=== PATIENT | female | born 1930 | race Hispanic/Latino ===

== ENCOUNTER 2017-10-22 20:07 | Emergency (ER) | payer MEDICARE, OTHER ==
[~2017-10-22] VITALS: Ht 154.9 cm; Wt 59.0 kg
[~2017-10-22 20:07] MED LIST: ACETAMINOPHEN325 M1 PO; ACETAMINOPHEN650 MG PO; ALENDRONATE PO; ALENDRONATE SOD70 MG PO; ALIVE PO; ARICEPT5 MG PO; ASPIR 8181 MG PO; ATIVAN0.5 MG PO; ATORVASTATIN CA20 MG PO; AUGMENTIN 500-1 EACH PO; CEFDINIR300 MG PO; CLOPIDOGREL75 MG PO; ECOTRIN81 MG; ESCITALOPRAM OX20 MG PO; FERROUS SULFAT325 MG PO; FOSAMAX70 MG; LASIX20 MG PO; LASIX40 MG PO; LEXAPRO10 MG PO; LORAZEPAM0.5 MG PO; METOPROLOL SUCC25 MG PO; METOPROLOL TART25 MG PO; MINOCYCLINE HCL50 MG PO; MIRALAX17 GM PO; PLAVIX75 MG PO; SENNA PLUS TAB1 EACH PO; SIMVASTATIN40 MG PO; TYLENOL WITH C1 EACH PO; ZOCOR40 MG; ZOFRAN4 MG/5 ML IV
--- OUTSIDE RECORDS SUMMARY | 2017-10-22 20:10 | XMS REPORT ---
[facility] Address Unknown Phone Unavailable Care Team Providers Care Arresting Gear Operator Name Role Phone AURELIO HO Unavailable Unavailable HEMATPOURTOMMY Unavailable Unavailable Problems This patient has no known problems. Allergies, Adverse Reactions, Alerts This patient has no known allergies or adverse reactions. Medications This patient has no known medications. Results Test Description Test Time Test Comments Text Results Atomic Results Result Comments PELVIS AP 1-2 VIEWS [place] [address] Patient Name: MYRTLE CLINE MR #: [id number] : 1930 Age/Sex: 86/F Req #: [id number] [facility] Physician: AURELIO HO MD Ordered by: GAUDENCIO UNDERWOOD MD Report #: [id number] Location: MED/SURG2 Room/Bed: [facility] Procedure: [id number] DX/PELVIS AP 1-2 VIEWS Exam Date : 07/28/17 Exam Time: 2200 REPORT STATUS: Signed PELVIS ONE VIEW Comparison: None Clinical history: Status post fall with hip pain Findings: Overlying bowel gas obscures portions of the bony pelvis. Moderate bilateral hip degenerative changes. Partially imaged spinal osseous fusion hardware. Chronic appearing left superior and inferior pubic rami fractures. No acute fracture or dislocation seen. Vascular calcifications. Impression: No acute bony abnormality Signed by: Dr Lori Garcia MD on 07/29/2017 7:32 PM Dictated By: LORI GARCIA MD 31 Transcribed By: MARVA on 07/29/171931 COPY TO: GAUDENCIO UNDERWOOD MD CT BRAIN WO [facility] [address] [place] [address] Patient Name: MYRTLE CLINE MR #: [id number] : 1930 Age/Sex: 86/F Req #: [id number] Adm Physician: AURELIO HO MD Ordered by: GAUDENCIO UNDERWOOD MD Report #: [id number] Location: MED/SURG2 Room/Bed: [facility] _ Procedure: [id number] CT/CT BRAIN WO Exam Date: 07/28/17 Exam Time: 2305 REPORT STATUS: Signed EXAMINATION: Head CT without contrast. HISTORY:Status post fall. COMPARISON:CT brain from 11/08/2015. TECHNIQUE: Multidetector axial images were obtained from the foramen magnum to the vertex without contrast. The images were reconstructed using brain and bone algorithms. Thin section brain images were reformatted into coronal and sagittal planes. Intravenous contrast: None IMAGE QUALITY: Acceptable. FINDINGS: Skull/scalp: No abnormality. Parenchyma: Unchanged nonspecific bilateral frontoparietal confluent periventricular, patchy subcortical and deep white matter hypodensity are likely related to small vessel ischemic changes. Old lacunar infarct in right anaya radiata. No acute hemorrhage, mass or acute major vascular territorial infarct. Arteries: Atherosclerotic calcification in bilateral carotid siphon. Dural sinuses: No abnormal density suggestive of thrombosis. Ventricles: Moderate compensated dilatation due to volume loss. No hydrocephalus. Extra-axial spaces: No abnormal density. Brain volume: Moderate generalized cerebral volume loss. Craniocervical junction: No mass, Chiari malformation, or basilar invagination. Sella: Partial empty sella. Paranasal/mastoid sinuses : Mild mucosal thickening in bilateral maxillary sinuses. IMPRESSION: No acute abnormality. No change since CT brain from 11/08/2015. Chronic findings: 1. Moderate generalized cerebral volume loss. 2. Moderate to severe supratentorial white matter microvascular ischemic changes. Signed by: Dr. Mary Burgess M.D. on 07/29/2017 7:07 AM Dictated By: MARY BURGESS MD 6 Transcribed By: MARVA on 07/29/17706 COPY TO: GAUDENCIO UNDERWOOD MD CT CERVICAL SPINE WO [place] [address] Patient Name: MYRTLE CLINE MR #: [id number] : 1930 Age/Sex: 86/F Req #: [id number] Adm Physician: AURELIO HO MD Ordered by: GAUDENCIO UNDERWOOD MD Report #: [id number] Location: [facility]/SURG Room/Bed: [facility] Procedure: [id number] CT/CT CERVICAL SPINE WO Exam Date : 07/28/17 Exam Time: 2305 REPORT STATUS: Signed History: Status post fall. Comparison studies: None Technique: Axial images were obtained through the cervical region.. Coronal and sagittal images reconstructed from the axial data.. Intravenous contrast: None Findings: Fractures: None. Soft tissue injuries: None. Atlantoaxial articulation: Intact. Alignment: Loss of normal cervical lordosis is either positional or due to muscle spasm. Mild dextrocurvature of the cervical spine may be positional. Cervicomedullary junction: No abnormalities. The foramen magnum is patent. Soft tissues: Incidental pleural-based airspace opacities in bilateral lung atelectasis may represent scarring. Vertebrae: Expected postoperative changes from prior laminectomy extends from level C4-C5. No fractures, infection or neoplasm. Degenerative changes: Severe degenerative changes in the anterior atlantodental joint, with partially calcified soft tissue density posterior to the dens without significant canal stenosis. C2-C3: 2 mm grade 1 anterolisthesis is likely degenerative. Mild left foraminal stenosis due to advanced left facet arthrosis. C3-C4: Severe degenerative disc disease with decreased intervertebral disc space, endplate sclerosis and anterior vertebral osteophyte. Posterior disc osteophyte complex without significant canal stenosis. Severe right and mild left foraminal stenosis due to facet and uncovertebral arthrosis. C4-C5: Posterior disc osteophyte complex without significant canal stenosis. Severe degenerative disc disease with decreased intervertebral disc space, endplate sclerosis and anterior vertebral osteophyte. Moderate right and severe left foraminal stenosis due to facet and uncovertebral arthrosis. C5-C6: Severe degenerative disc disease with decreased intervertebral disc space, endplate sclerosis and anterior vertebral osteophyte. Posterior disc osteophyte complex results in mild canal stenosis. Moderate right and mild left foraminal stenosis due to facet and uncovertebral arthrosis. C6-C7: Moderate degenerative disc disease with decreased intervertebral disc space and endplate sclerosis. Mild right and moderate left foraminal stenosis due to facet and uncovertebral arthrosis. IMPRESSION: 1. No acute cervical spine fracture. Loss of normal cervical lordosis is either positional or due to muscle spasm. 2. Ligament, spinal cord and or vascular abnormalities cannot be excluded on the basis of this examination. 3. Expected postoperative changes from prior laminectomy at level C4 and C5. 4. Cervical spondylosis as detailed above. Signed by: Dr. Mary Burgess M.D. on 07/29/2017 7:14 AM Dictated By: MARY BURGESS MD 3 Transcribed By: MARVA on 07/29/17713 COPY TO: GAUDENCIO UNDERWOOD MD CHEST 2 VIEWS [place] [address] Patient Name: MYRTLE CLINE MR #: [id number] : 1930 Age/Sex: 86/F Req #: [id number] Adm Physician: AURELIO HO MD Ordered by: GAUDENCIO UNDERWOOD MD Report #: [id number] Location: MED/SURG2 Room/Bed: [facility] _ Procedure: [id number] DX/CHEST 2 VIEWS Exam Date: 07/28/17 Exam Time: 2200 REPORT STATUS: Signed CHEST 2 VIEWS, Technique: CHEST 2 VIEWS Comparison: 06/17/2009 Clinical history: Altered mental status DISCUSSION: See below. Multilevel degenerative changes with mild age-indeterminate mid thoracic anterior wedging and partially imaged lumbar hardware. IMPRESSION: 1. Lines/tubes: Intact median sternotomy wires. Left chest wall 2-lead ICD with right atrial and ventricular leads. 2. Moderately enlarged cardiac silhouette, increased from prior. Aortic calcification. 3. Stable biapical parenchymal nodular opacities, presumably scarring. No edema or consolidation. 4. No effusion or pneumothorax Signed by: Dr Lori Garcia MD on 07/29/2017 7:36 PM Dictated By: LORI GARCIA MD 35 Transcribed By: MARVA on 07/29/171935 COPY TO: GAUDENCIO UNDERWOOD MD [place] [address] Patient Name: MYRTLE CLINE MR #: [id number] : 1930 Age/Sex: 86/F Req #: [id number] Adm Physician: AURELIO HO MD Ordered by: GAUDENCIO UNDERWOOD MD Report #: [id number] Location: MED/SURG2 Room/Bed: 203-1 Procedure: [id number] DX/ELBOW LEFT COMPLETE Exam Date : 07/28/17 Exam Time: 2199 REPORT STATUS: Signed Left elbow - 3 views HISTORY: Pain. COMPARISON: None available. FINDINGS: Bones: No acute displaced fracture. No expansile lytic or sclerotic lesion. Joints: The joint spaces are well- maintained. No dislocation. Soft tissues: The soft tissues appear unremarkable. IMPRESSION: No acute radiographic abnormality. Signed by: Dr. Pancho Garcia M.D. on 07/29/2017 8:32 AM Dictated By: PANCHO GARCIA MD 1 Transcribed By: MARVA on 07/29/17831 COPY TO: GAUDENCIO UNDERWOOD MD CHEST SINGLE (PORTABLE) [place] [address] Patient Name: MYRTLE CLINE MR #: [id number] : 1930 Age/Sex: 86/F Req #: [id number] Adm Physician: TOMMY CASTRO MD Ordered by: TOMMY CASTRO MD Report #: [id number] Location: [facility] Room/ Bed: [facility] 176-1 Procedure: [id number] DX/CHEST SINGLE ( PORTABLE) Exam Date: 01/26/16 Exam Time: 1540 REPORT STATUS: Signed PROCEDURE: A single AP view of the chest. COMPARISON: Portable chest 01/26/2016 1446 hrs. INDICATIONS: POST OPERATIVE WEAKNESS/NAUSEA/VOMITING FINDINGS: Lines/tubes: Left chest cardiac device with leads projecting over the expected region of the right atrium and ventricle. Lungs: Bilateral perihilar opacifications. No parenchymal mass. Pleura: There is no pleural effusion or pneumothorax. Heart and mediastinum: The heart and the mediastinum are unremarkable. Bones: Degenerative changes of the thoracic spine. Median sternotomy wires. IMPRESSION: Bilateral perihilar opacifications may represent pulmonary edema. Dictated by: Pancho Garcia M.D. on 01/26/2016 at 16:05 Electronically approved by: Pancho Garcia M.D. on 01/26/2016 at 16:05 Dictated By: PANCHO GARCIA MD [id number] Transcribed By: STEPHANE on 01/26/16 1605 COPY TO: TOMMY CASTRO MD CHEST SINGLE (PORTABLE) [place] [address] Patient Name: MYRTLE CLINE MR #: [id number] : 1930 Age/Sex: 86/F Req #: [id number] Adm Physician: Ordered by: TOMMY CASTRO MD Report #: [id number] Location: [facility] Room/Bed: Procedure: [id number] DX/CHEST SINGLE (PORTABLE) Exam Date: Exam Time: 1435 REPORT STATUS: Signed PROCEDURE: A single AP view of the chest. COMPARISON: None. INDICATIONS: POST OP FOR PACEMAKER FINDINGS: Lines/tubes: Left chest cardiac device is present with the leads projecting over the expected regions of the right atrium and ventricle. Lungs: Low lung volumes are present bilaterally, likely resulting in vascular crowding. No parenchymal mass or focal consolidation. Pleura: There is no pleural effusion or pneumothorax. Heart and mediastinum: The heart and the mediastinum are unremarkable. Bones: No acute bony abnormality. Median sternotomy wires. IMPRESSION: No acute radiographic abnormality. Dictated by: Pancho Garcia M.D. on 01/26/2016 at 15:29 Electronically approved by: Pancho Garcia M.D. on 01/26/2016 at 15:29 Dictated By: PANCHO GARCIA MD 1522 Transcribed By: STEPHANE on 01/26/16 1529 COPY TO: TOMMY CASTRO MD
--- NOTE | 2017-10-22 22:06 | Diagnostic Imaging Report ---
History:Weakness, fall Comparison studies:None Technique: Axial images were obtained from the skull base to the vertex. Coronal and sagittal images reconstructed from the axial data. Intravenous contrast: None Findings: Scalp/skull: No abnormalities. Extra-axial spaces: No masses. No fluid collections. Brain sulci: Moderately prominent. Ventricles: Moderate compensatory dilatation. No hydrocephalus. Parenchyma: Confluent hypodensities in the supratentorial white matter are small vessel ischemic changes. No masses, hemorrhage, acute or chronic cortical vascular insults. Sellar/suprasellar region: No abnormalities. Craniocervical junction: Patent foramen magnum. No Chiari one malformation. Incidental findings: Atherosclerotic calcifications in the carotid siphons . Impression: No acute abnormalities. Chronic findings: 1. Moderate generalized volume loss. 2. Diffuse supratentorial white matter small vessel ischemic changes. Signed by: Dr. Roque Ledezma M.D. on 10/22/2017 10:03 PM
--- NOTE | 2017-10-22 22:11 | Diagnostic Imaging Report ---
History: Sagittal Comparison studies: None Technique: Axial images were obtained through the cervical region.. Coronal and sagittal images reconstructed from the axial data.. Intravenous contrast: None Findings: Airway: Patent. Fractures: None. Soft tissues: No gross abnormalities. Atlantoaxial articulation: Moderately degenerated. Alignment: Straightening of the usual lordosis is probably positional. 2 mm degenerative anterolisthesis of C7 on T1. No scoliosis. Cervicomedullary junction: No abnormalities. The foramen magnum is patent. Vertebrae: Diffusely demineralized but no compression fractures. Patient status post bilateral laminectomies from C3 to C5. No infection or neoplasm. Degenerative changes: Moderately degenerated discs from C3 to C7. Degenerative spinal canal stenosis is moderate at C3-4 and at C6-C7 due to disc osteophyte complexes. Foraminal stenosis, moderate left at C2-3, severe bilaterally at C3-4, C4-5, C5-6 and moderate left at C6-7 is due to facet and uncovertebral arthrosis. Incidental atherosclerotic calcifications in the common carotid and subclavian arteries and in the carotid bulbs.. IMPRESSION: 1. No acute abnormalities. 2. Cannot adequately evaluate for ligament, spinal cord and or vascular abnormalities. Additional findings Bones are demineralized but no compression fractures. Extensive degenerative changes as described. Old laminectomy from C3 to C5 Signed by: Dr. Roque Ledezma M.D. on 10/22/2017 10:07 PM
[2017-10-22 22:12] LABS: BASOPHILS % 0.5 % (0.0-1.0); EOSINOPHILS # (AUTO) 0.1 (0.0-0.4); EOSINOPHILS % 0.8 % (0.0-6.0); HEMATOCRIT 32.9 % (34.2-44.1); LYMPHOCYTES # (AUTO) 2.3 (1.0-3.2); LYMPHOCYTES % 29.9 % (18.0-39.1); MEAN CORPUSCULAR HEMOGLOBIN 33.1 pg (28-32); MEAN CORPUSCULAR HGB CONC 33.4 g/dL (31-35); MEAN CORPUSCULAR VOLUME 99.1 fL (81-99); MONOCYTES # (AUTO) 0.7 (0.2-0.8); MONOCYTES % 8.6 % (4.4-11.3); NEUTROPHILS # (AUTO) 4.5 (2.1-6.9); NEUTROPHILS % 59.8 % (38.7-80.0); PLATELET COUNT 168 x10e3/uL (140-360); RED BLOOD COUNT 3.32 x10e6/uL (3.6-5.1); RED CELL DISTRIBUTION WIDTH 13.5 % (11.7-14.4)
[2017-10-22 22:15] LABS: BILIRUBIN,URINE NEGATIVE (NEGATIVE); CLARITY,URINE CLEAR (CLEAR); COLOR,URINE YELLOW (YELLOW); KETONES,URINE NEGATIVE (NEGATIVE); LEUKOCYTE ESTERASE ,URINE NEGATIVE (NEGATIVE); NITRITE,URINE NEGATIVE (NEGATIVE); PROTEIN,URINE DIPSTICK NEGATIVE (NEGATIVE); URINE UROBILINOGEN 0.2 mg/dL (0.2 - 1)
[2017-10-22 22:21] LABS: INR 1.2; PROTHROMBIN TIME 14.3 seconds (11.9-14.5)
[2017-10-22 22:22] LABS: PARTIAL THROMBOPLASTIN TIME 27.6 seconds (23.8-35.5)
[2017-10-22 22:29] LABS: BACTERIA,URINE FEW /HPF; EPITHELIAL CELLS,URINE FEW /LPF; RBC,URINE 0-5 /HPF (0-5); WBC,URINE (MAN) 0-5 /HPF (0-5)
[2017-10-22 22:31] LABS: ALBUMIN 3.7 g/dL (3.5-5.0); CALCIUM 9.5 mg/dL (8.4-10.2); CREATININE, SERUM 0.99 mg/dL (0.57-1.11)
[2017-10-22 22:41] LABS: CREATINE KINASE MB 1.4 ng/mL (0.00-5.00)
--- NOTE | 2017-10-22 23:02 | Diagnostic Imaging Report ---
EXAMINATION: CHEST 2 VIEWS INDICATION: Weakness COMPARISON: None FINDINGS: TUBES and LINES: AICD is intact. LUNGS: Lungs are well inflated. There are bibasilar atelectasis. There is mild prominence of the central pulmonary vasculature, consistent with pulmonary venous congestion. PLEURA: No pleural effusion or pneumothorax. HEART AND MEDIASTINUM: Cardiac size is mildly enlarged. There are atherosclerotic calcifications within the aorta. Midline sternotomy wires status post CABG procedure BONES AND SOFT TISSUES: No acute osseous lesion. Soft tissues are unremarkable. UPPER ABDOMEN: No free air under the diaphragm. IMPRESSION: No acute thoracic abnormality. Bibasilar atelectasis and central vascular congestion. Signed by: Dr. Colton Hampton M.D. on 10/22/2017 10:58 PM
[2017-10-22 23:25] VITALS: BP 160/75
== END 2017-10-22 23:29 | disposition home or self-care (01) ==
LOC: ER 20:07
DX: R53.1 Weakness (principal); R30.0 Dysuria; W18.30XA Fall on same level, unspecified, initial encounter; Y92.008 Other place in unspecified non-institutional (private) residence as the place of occurrence of the external cause; F03.90 Unspecified dementia, unspecified severity, without behavioral disturbance, psychotic disturbance, mood disturbance, and anxiety; I10 Essential (primary) hypertension; I25.10 Atherosclerotic heart disease of native coronary artery without angina pectoris; E78.5 Hyperlipidemia, unspecified; Z95.1 Presence of aortocoronary bypass graft
CPT/HCPCS: 36415; 70450; 71046; 72125; 80053; 81001; 82550; 82553; 83605; 83735; 84484; 85025; 85610; 85730; 87086

== ENCOUNTER 2018-11-15 10:57 | Inpatient (IN) | payer MEDICARE, OTHER ==
[~2018-11-15] VITALS: Ht 149.9 cm; Wt 54.9 kg
--- OUTSIDE RECORDS SUMMARY | 2018-11-15 11:01 | XMS REPORT ---
Author Author Merry Perez Organization [employer] Address Unknown Phone Unavailable Care Team Providers Care Snack Bar Cook Name Role Phone Merry Perez Unavailable Encounters Encounter Location Date Unknown Merry Perez MD [place] Oct 28, 2015 Unknown Merry Perez MD [place] December 24, 2015 Unknown Merry Perez MD [place] December 24, 2015 Unknown Merry Perez MD [place] Jul 19, 2016 Unknown Merry Perez MD [place] Jul 30, 2014 Unknown Merry Perez MD [place] Oct 20, 2014 Unknown Merry Perez MD [place] Sep 09, 2015 Problems Problem Type Condition ICD-9 Code Onset Dates Condition Status Problem Essential hypertension I10 Active Problem Pure hypercholesterolemia E78.01 Active Problem Generalized osteoarthrosis, 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 Active Problem 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 Problem Atherosclerosis of [place] arteries of extremity with intermittent claudication I70.219 Active Problem Nonrheumatic mitral (valve) insufficiency I34.0 Active Problem Abnormal electrocardiogram R94.31 Active Problem Carotid artery disease I77.9 Active Problem 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 Status Former Smoker Quit in 1970 February 16, 2016 Alcohol Use Yes. February 16, 2016 Alcohol Screening: Yes. Did you have a drink containing alcohol in the past year?: No, Points: 0, Interpretation: Negative February 16, 2016 Marital Status: single. February 16, 2016 Do you drink alcohol? Yes. 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
--- OUTSIDE RECORDS SUMMARY | 2018-11-15 11:01 | XMS REPORT ---
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 Active Problem 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 Problem Essential hypertension I10 Active Problem Carotid artery disease I77.9 Active Problem Abnormal electrocardiogram R94.31 Active Problem Shortness of breath R06.02 Active Assessment Systolic CHF with reduced left ventricular function, 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
--- OUTSIDE RECORDS SUMMARY | 2018-11-15 11:01 | XMS REPORT | Summary of Care ---
Author Author [facility] Organization [facility] Address Unknown Phone Unavailable Encounter HQ Meri(FIN) [id number] Date(s): 01/08/18 - 01/08/18 [facility] [address] [place] [address]- [facility] [phone] Encounter Diagnosis Headache (Discharge Diagnosis) - 01/08/18 Discharge Disposition: Home or Self Care Attending Physician: Aldair Sousa MD Vital Signs 1 2 3 Most recent to oldest [Reference Range]: 160.02 cm (01/08/18 9:29 AM) Height 98.3 DegF (01/08/18 12:29 PM) 98.6 DegF (01/08/18 9:29 AM) Temperature Oral [96.4-99.1 DegF] 129/57 mmHg (01/08/18 12:29 PM) 155/67 mmHg *HI* (01/08/18 11:51 AM) 163/84 mmHg *HI* (01/08/18 9:29 AM) Blood Pressure [90-140/60-90 mmHg] 16 BRMIN (01/08/18 12:29 PM) 17 BRMIN (01/08/18 11:51 AM) 16 BRMIN (01/08/18 9:29 AM) Respiratory Rate [14-20 BRMIN] 74 bpm (01/08/18 12:29 PM) 72 bpm (01/08/18 11:51 AM) 73 bpm (01/08/18 9:29 AM) Peripheral Pulse Rate [60-100 bpm] 50 kg (01/08/18 9:29 AM) Weight 19.53 m2 (01/08/18 9:29 AM) Body Mass Index Problem List Condition Effective Dates Status Health Status Informant Coronary artery Resolved disease(Confirmed) HTN Resolved (hypertension)(Confi rmed) Allergies, Adverse Reactions, Alerts Substance Reaction Severity Status NKDA Active Medications aspirin 324 mg, Route: PO, ONCE, Dosing Weight 50, kg, Priority: STAT, Start date: 01/08 10:32:00 CDT, Stop date: 01/08/18 10:32:00 CDT Start Date: 01/08/18 Stop Date: 01/08/18 Status: Completed Benadryl 25 mg, Route: IVP, ONCE, Dosing Weight 50, kg, Priority: STAT, Start date: 01/08 10:33:00 CDT, Stop date: 01/08/18 10:33:00 CDT Start Date: 01/08/18 Stop Date: 01/08/18 Status: Completed Kayexalate oral and rectal powder 15 gm, PO, ONCE, only for today., # 1 bag, 0 Refill(s) Start Date: 01/08/18 Status: Ordered morphine Sulfate 2 mg, Route: IVP, ONCE, Dosing Weight 50, kg, Priority: STAT, Start date: 10:32:00 CDT, Stop date: 01/08/18 10:32:00 CDT Start Date: 01/08/18 Stop Date: 01/08/18 Status: Completed ondansetron 4 mg, Route: IVP, ONCE, Dosing Weight 50, kg, Priority: STAT, Start date: 10:32:00 CDT, Stop date: 01/08/18 10:32:00 CDT Start Date: 01/08/18 Stop Date: 01/08/18 Status: Completed Reglan 10 mg, Route: IVP, Drug form: INJ, ONCE, Dosing Weight 50, kg, Priority: STAT, S tart date: 01/08/18 10:33:00 CDT, Stop date: 01/08/18 10:33:00 CDT Start Date: 01/08/18 Stop Date: 01/08/18 Status: Completed Saline Flush 0.9% 10 mL, Route: IVP, Drug Form: INJ, Dosing Weight 50, kg, PRN, PRN Line Flush, St art date: 01/08/18 10:32:00 CDT, Duration: 30 day, Stop date: 02/07/18 10:31:00 CDT Notes: (Same as: BD Posiflush) Start Date: 01/08/18 Stop Date: 01/08/18 Status: Discontinued Results ELECTROLYTES Most recent to 1 oldest [Reference Range]: Sodium Lvl [135-145 143 mEq/L mEq/L] (01/08/18 10:45 AM) Potassium Lvl 5.7 mEq/L [3.5-5.1 mEq/L] *HI* (01/08/18 10:45 AM) Chloride Lvl [95-109 111 mEq/L mEq/L] *HI* (01/08/18 10:45 AM) CO2 [24-32 mEq/L] 27 mEq/L (01/08/18 10:45 AM) AGAP [10.0-20.0 10.7 mEq/L mEq/L] (01/08/18 10:45 AM) CHEM PANEL Most recent to 1 oldest [Reference Range]: Creatinine Lvl 1.10 mg/dL [0.50-1.40 mg/dL] (01/08/18 10:45 AM) eGFR 45 mL/min/1.73m2 1 *NA* (01/08/18 10:45 AM) BUN [7-22 mg/dL] 22 mg/dL (01/08/18 10:45 AM) B/C Ratio [6-25] 20 (01/08/18 10:45 AM) Glucose Lvl [70-99 86 mg/dL mg/dL] (01/08/18 10:45 AM) Total Protein 7.2 g/dL [6.4-8.4 g/dL] (01/08/18 10:45 AM) Albumin Lvl [3.5-5.0 3.2 g/dL g/dL] *LOW* (01/08/18 10:45 AM) Globulin [2.7-4.2 4.0 g/dL g/dL] (01/08/18 10:45 AM) A/G Ratio [0.7-1.6] 0.8 (01/08/18 10:45 AM) Calcium Lvl 8.6 mg/dL [8.5-10.5 mg/dL] (01/08/18 10:45 AM) Phosphorus [2.5-4.5 3.6 mg/dL mg/dL] (01/08/18 10:45 AM) Magnesium Lvl 2.3 mg/dL [1.8-2.4 mg/dL] (01/08/18 10:45 AM) ALT [0-65 unit/L] 17 unit/L (01/08/18 10:45 AM) AST [0-37 unit/L] 31 unit/L (01/08/18 10:45 AM) Alk Phos [39-136 59 unit/L unit/L] (01/08/18 10:45 AM) Bili Total [0.2-1.3 0.7 mg/dL mg/dL] (01/08/18 10:45 AM) Lipase Lvl [73-393 94 unit/L unit/L] (01/08/18 10:45 AM) 1Result Comment: The eGFR is calculated using the CKD-EPI formula. In most young, healthy individuals the eGFR will be >90 mL/min/1.73m2. The eGFR declines with age. An eGFR of 60-89 may be normal in some populations, particularly the elderly, for whom the CKD-EPI formula has not been extensively validated. Use of the eGFR is not recommended in the following populations: Individuals with unstable creatinine concentrations, including patients and those with serious co-morbid conditions. Patients with extremes in muscle mass or diet. The data above are obtained from the National Kidney Disease Education Program ( NKDEP) which additionally recommends that when the eGFR is used in patients with extremes of body mass index for purposes of drug dosing, the eGFR should be mul tiplied by the estimated BMI. CARDIAC ENZYMES Most recent to 1 oldest [Reference Range]: Total CK [12-191 138 unit/L unit/L] (01/08/18 10:45 AM) CK MB [0.5-3.6 1.7 ng/mL ng/mL] (01/08/18 10:45 AM) CK MB Index 1.2 [0.0-2.5] (01/08/18 10:45 AM) Troponin-I 0.24 ng/mL [0.00-0.40 ng/mL] (01/08/18 10:45 AM) HEMATOLOGY Most recent to 1 oldest [Reference Range]: WBC [3.7-10.4 K/CMM] 7.1 K/CMM (01/08/18 10:45 AM) RBC [4.20-5.40 3.48 M/CMM M/CMM] *LOW* (01/08/18 10:45 AM) Hgb [12.0-16.0 g/dL] 11.6 g/dL *LOW* (01/08/18 10:45 AM) Hct [36.0-48.0 %] 33.8 % *LOW* (01/08/18 10:45 AM) MCV [80.0-98.0 fL] 97.2 fL (01/08/18 10:45 AM) MCH [27.0-31.0 pg] 33.4 pg *HI* (01/08/18 10:45 AM) MCHC [32.0-36.0 34.3 g/dL g/dL] (01/08/18 10:45 AM) RDW [11.5-14.5 %] 14.1 % (01/08/18 10:45 AM) MPV [7.4-10.4 fL] 9.7 fL (01/08/18 10:45 AM) Platelet [133-450 162 K/CMM K/CMM] (01/08/18 10:45 AM) Segs [45.0-75.0 %] 66.9 % (01/08/18 10:45 AM) Lymphocytes 23.5 % [20.0-40.0 %] (01/08/18 10:45 AM) Monocytes [2.0-12.0 7.1 % %] (01/08/18 10:45 AM) Eosinophils [0.0-4.0 1.6 % %] (01/08/18 10:45 AM) Basophils [0.0-1.0 0.9 % %] (01/08/18 10:45 AM) Segs-Bands # 4.8 K/CMM [1.5-8.1 K/CMM] (01/08/18 10:45 AM) Lymphocytes # 1.7 K/CMM [1.0-5.5 K/CMM] (01/08/18 10:45 AM) Monocytes # [0.0-0.8 0.5 K/CMM K/CMM] (01/08/18 10:45 AM) Eosinophils # 0.1 K/CMM [0.0-0.5 K/CMM] (01/08/18 10:45 AM) Basophils # [0.0-0.2 0.1 K/CMM K/CMM] (01/08/18 10:45 AM) PT [12.0-14.7 14.2 seconds seconds] (01/08/18 10:45 AM) INR [0.85-1.17] 1.10 (01/08/18 10:45 AM) Immunizations No data available for this section Procedures Procedure Date Related Diagnosis Body Site Status 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
--- OUTSIDE RECORDS SUMMARY | 2018-11-15 11:01 | XMS REPORT | Continuity of Care Document ---
Author Author Cecilia love Organization Interface Address Unknown Phone Unavailable Problems Problem Status Onset Date Classification Date Reported Comments Source Essential hypertension 04/12/2018 10/24/2018 Merry Perez,[facility] Elevated blood pressure reading with diagnosis of hypertension 04/06/2018 10/24/2018 [place] Dementia 04/06/2018 10/24/2018 [facility] HTN 04/06/2018 10/24/2018 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 SYNCOPE Active 07/30/2014 [facility] SYNCOPE, R/O SEIZURE Active 07/30/2014 [facility] Coronary atherosclerosis of artery bypass graft Active Problem 10/03/2018 Merry Perez Systolic CHF with reduced left ventricular function, NYHA class 3 Active Problem 10/03/2018 Merry Perez Pure hypercholesterolemia Active Problem 10/03/2018 Merry Perez ICD in place Active Problem 10/03/2018 Merry Perez Atherosclerosis of [place] arteries of extremity with intermittent claudication Active Problem 10/03/2018 Merry Perez Nonrheumatic mitral insufficiency Active Problem 10/03/2018 Merry Perez Generalized osteoarthrosis, involving multiple sites Active Problem 10/03/2018 Merry Perez Nonrheumatic tricuspid valve disorder Active Problem 10/03/2018 Merry Perez Carotid artery disease Active Problem 10/03/2018 Merry Perez Abnormal electrocardiogram Active Problem 10/03/2018 Merry Perez Shortness of breath Active Problem 10/03/2018 Merry Perez Shortness of breath Active Problem 09/10/2015 Merry Perez Carotid Bruit Active Problem 09/10/2015 Merry Silva Chris Abnormal EKG Active Problem 09/10/2015 Merry Ricardo Perez Atherosclerosis of [place] arteries of the extremities with intermittent claudication Active Problem 08/02/2014 Merry Ricardo Perez Carotid art occ w/o infarc Active Problem 09/10/2015 Merry Ricardo Perez Angina Active Problem 09/10/2015 Merry Ricardo Perez CAD, [place] Coronary Artery Active Problem 09/10/2015 Merry Ricardo [place] Hypercholesterolemia Active Problem 09/10/2015 Merry Ricardo [place] Generalized osteoarthrosis, involving multiple sites Active Problem 09/10/2015 Merry Ricardo [place] Pure hypercholesterolemia Active Problem 12/25/2015 Merry Ricardo Perez Atheroscler [place] arteries the extremities w/intermit claudication Active Problem 09/10/2015 Yobhakti Ricardo Perez CAD of bypass graft Active Problem 09/10/2015 Yobhakti Ricardo Perez Mitral regurgitation Active Problem 09/10/2015 Yobhakti Ricardo Perez Hypertension Active Problem 09/10/2015 Merry Ricardo Perez Nonrheumatic tricuspid insufficiency Active Problem 09/10/2015 Merry Ricardo [place] Carotid artery disease Active Problem 09/10/2015 Merry Ricardo Perez AI Active Problem 09/10/2015 Yobhakti Perez Coronary artery disease [facility] [facility] (<span ID="[id number]">Confirmed</span>) Resolved Problem [facility]/05/[address] Hyperlipidemia, unspecified 01/17/[address] [facility] half-way use of antithrombotics/antiplatelets 01/17/[address] [facility] Unspecified dementia without behavioral disturbance 10/24/2018 [facility] Atherosclerotic heart disease of [place] coronary artery without angina pectoris 10/24/2018 [facility] Presence of aortocoronary bypass graft 10/24/2018 [place] Presence of cardiac pacemaker 10/24/2018 [facility] half-way use of aspirin 10/24/2018 [facility] Personal history of nicotine dependence 10/24/2018 [facility] Coronary artery disease Resolved Problem 10/24/2018 [facility] (<span [id number]">Confirmed</span>) Resolved Problem 10/24/2018 CHIQUITAAmanda [place], [place] SYNCOPE AND COLLAPSE Active [facility] HEMATURIA NOS Active [facility] Medications Medication Details Route Status Patient Instructions Ordering Provider Order Date Source Cephalexin 750 MG Oral Capsule [Keflex] 750 mg=1 cap, PO, Q12H, X 10 day, # 20 cap, 0 Refill(s) Active 03/02/[address] [facility] Ondansetron 4 mg, 2 mL, Route: IVP, Drug form: INJ, ONCE, Dosing Weight 54, kg, Priority: STAT, Start date: 03/01/18 22:19:00 CDT, Stop date: 03/01/18 22:19:00 CDTNotes: (Same as: Zofran) MEDICATION WASTE Product Size: 4 mg Product Wasted: ___ mg Inactive 03/02/[address] [facility] Famotidine 20 mg, 2 mL, Route: IVP, Drug form: INJ, ONCE, Dosing Weight 54, kg, Priority: STAT, Start date: 03/01/18 22:19:00 CDT, Stop date: 03/01/18 22:19:00 CDTNotes: (Same as: Pepcid) Can be dilute in 5-10cc NS IVP: Slow IV push over at least 2 minutes. Inactive 03/02/[address] [facility] Morphine 4 mg, 1 mL, Route: IVP, Drug form: SOLN, ONCE, Dosing Weight 54, kg, Priority: STAT, Start date: 03/01/18 22:19:00 CDT, Stop date: 03/01/18 22:19:00 CDTNotes: (Same as:MORPhine Sulfate) Inactive 03/02/[address] [facility] Saline Flush 0.9% 10 mL, Route: IVP, Drug Form: INJ, Dosing Weight 54, kg, PRN, PRN Line Flush, Start date: 03/01/18 22:19:00 CDT, Duration: 30 day, Stop date: 03/31/18 22:18:00 CDTNotes: (Same as: BD Posiflush) No Longer Active 03/02/[address] [facility] Sodium polystyrene sulfonate 250 MG/ML Oral Suspension [Kayexalate] 15 gm, PO, ONCE, only for today., # 1 bag, 0 Refill(s) Active 01/08/[address] [facility] Reglan 10 mg, Route: IVP, Drug form: INJ, ONCE, Dosing Weight 50, kg, Priority: STAT, Start date: 01/08/18 10:33:00 CDT, Stop date: 01/08/18 10:33:00 CDT Inactive 01/08/[address] [facility] Benadryl 25 mg, Route: IVP, ONCE, Dosing Weight 50, kg, Priority: STAT, Start date: 01/08/18 10:33:00 CDT, Stop date: 01/08/18 10:33:00 CDT Inactive 01/08/[address] [facility] Morphine 2 mg, Route: IVP, ONCE, Dosing Weight 50, kg, Priority: STAT, Start date: 01/08/18 10:32:00 CDT, Stop date: 01/08/18 10:32:00 CDT Inactive 01/08/[address] [facility] Aspirin 324 mg, Route: PO, ONCE, Dosing Weight 50, kg, Priority: STAT, Start date: 01/08/18 10:32:00 CDT, Stop date: 01/08/18 10:32:00 CDT Inactive 01/08/[address] [facility] Ondansetron 4 mg, Route: IVP, ONCE, Dosing Weight 50, kg, Priority: STAT, Start date: 01/08/18 10:32:00 CDT, Stop date: 01/08/18 10:32:00 CDT Inactive 01/08/[address] [facility] Saline Flush 0.9% 10 mL, Route: IVP, Drug Form: INJ, Dosing Weight 50, kg, PRN, PRN Line Flush, Start date: 01/08/18 10:32:00 CDT, Duration: 30 day, Stop date: 02/07/18 10:31:00 CDTNotes: (Same as: BD Posiflush) Inactive 01/08/[address] [facility] Ciprofloxacin 500 MG Oral Tablet [Cipro] 500 mg=1 tab, PO, Q12H, # 14 tab, 0 Refill(s) Active 07/31/2014 [facility] Lisinopril 5 mg, 1 tab, Route: PO, Drug form: TAB, Daily, Dosing Weight 51.364, kg, Start date: 07/31/14 9:00:00, Duration: 30 day, Stop date: 08/29/14 9:00:00Notes: (Same as: Prinivil, Zestril) Inactive 07/31/2014 [facility] Aspirin 81 MG Enteric Coated Tablet 81 mg, 1 tab, Route: PO, Drug form: ECTAB, Daily, Dosing Weight 51.364, kg, Start date: 07/31/14 9:00:00, Duration: 30 day, Stop date: 08/29/14 9:00:00Notes: Do not crush or chew. (Same As: Ecotrin) Inactive 07/31/2014 [facility] Rocephin 1 gm, Route: IVPB, [id number], Dosing Weight 51.364, kg, Start date: 07/30/14 22:00:00, Duration: 30 day, Stop date: 08/28/14 22:00:00Notes: (Same As: Rocephin). Use with 100ml NS mini-bag PLUS and infuse over 30 min No Longer Active 07/31/2014 [facility] Simvastatin 40 mg, 1 tab, Route: PO, Drug form: TAB, Bedtime, Dosing Weight 51.364, kg, Start date: 07/30/14 21:00:00, Duration: 30 day, Stop date: 08/28/14 21:00:00Notes: (Same as: Zocor) No Longer Active 07/31/2014 [facility] metoprolol tartrate 25 mg, 1 tab, Route: PO, Drug form: TAB, Q12H, Dosing Weight 51.364, kg, Start date: 07/30/14 21:00:00, Duration: 30 day, Stop date: 08/29/14 9:00:00Notes: (Same as: Lopressor) No Longer Active 07/31/2014 [facility] tramadol hydrochloride 50 MG Oral Tablet 50 mg, 1 tab, Route: PO, Drug form: TAB, Q6H, Dosing Weight 51.364, kg, PRN Pain Score 1-5, Start date: 07/30/14 19:06:00, Stop date: 08/29/14 19:05:00Notes: Not to exceed 400mg/day. (Same As: Ultram) No Longer Active 07/31/2014 [facility] Alendronic acid 70 MG Oral Tablet 70 mg=1 tab, PO, QMon Active 07/30/2014 [facility] simvastatin 40 mg oral tablet 40 mg=1 tab, PO, Bedtime Active 07/30/2014 [facility] Aspirin 81 MG Enteric Coated Tablet 81 mg=1 tab, PO, Daily Active 07/30/2014 [facility] tramadol hydrochloride 50 MG Oral Tablet 50 mg=1 tab, PO, Q6H, as needed for pain Active 07/30/2014 [facility] metoprolol tartrate 25 mg oral tablet 25 mg=1 tab, PO, Q12H No Longer Active 07/30/2014 [facility] lisinopril 5 mg oral tablet 5 mg=1 tab, PO, Daily No Longer Active 07/30/2014 [facility] Rocephin 1 gm, Route: IVPB, Drug form: PDR/INJ, ONCE, Dosing Weight 51.364, kg, Priority: STAT, Start date: 07/30/14 15:03:00, Stop date: 07/30/14 15:03:00 Inactive 07/30/2014 [facility] Saline Flush 0.9% 10 mL, Route: IVP, Drug Form: INJ, Dosing Weight 51.364, kg, PRN, PRN Line Flush, Start date: 07/30/14 13:07:00, Duration: 30 day, Stop date: 08/29/14 13:06:00Notes: Same as: BD Posiflush Sterile No Longer Active 07/30/2014 [facility] Metoprolol Tartrate 1 tablet Orally Active 50 mg Orally daily Chris Perez Lasix 1 tablet Orally Active 40 mg Orally Once a day Chris Perez Clopidogrel Bisulfate 1 tablet Orally Active 75 mg Orally Once a day Chris Perez Simvastatin 1 tablet Orally Active 40 MG Orally once a day Chris Perez Allergies, Adverse Reactions, Alerts Substance Category Reaction Severity Reaction type Status Date Reported Comments Source Immunizations Immunization Date Given Site Status Last Updated Comments Source Results Order Name Results Value Reference Range Date Interpretation Comments Source URINE AND STOOL UA Color Ltyellow 04/06/2018 [facility] URINE AND STOOL UA Bacteria Occasional /HPF None Seen /HPF 04/06/2018 [facility] URINE AND STOOL UA Urobilinogen <=1.0 mg/dL 0.1 - 1.0 04/06/2018 [facility] URINE AND STOOL UA Hyal Cast 1 /LPF 0 - 2 04/06/2018 [facility] URINE AND STOOL UA WBC 3 /HPF 0 - 5 04/06/2018 [facility] URINE AND STOOL UA Sq Epi Occasional /LPF Few /LPF 04/06/2018 [facility] URINE AND STOOL UA Leuk Est Trace *ABN* (04/06/18 5:26 AM) Negative 04/06/2018 [facility] URINE AND STOOL UA Nitrite Negative (04/06/18 5:26 AM) Negative 04/06/2018 [facility] URINE AND STOOL UA RBC 1 /HPF 0 - 2 04/06/2018 [facility] URINE AND STOOL UA Ketones Negative mg/dL Negative mg/dL 04/06/2018 [facility] URINE AND STOOL UA Bili Negative *NA* (04/06/18 5:26 AM) Negative 04/06/2018 [facility] URINE AND STOOL UA Glucose Negative mg/dL Negative mg/dL 04/06/2018 [facility] URINE AND STOOL UA Blood Negative (04/06/18 5:26 AM) Negative 04/06/2018 [facility] URINE AND STOOL UA Turbidity Slight *ABN* (04/06/18 5:26 AM) Clear 04/06/2018 [facility] URINE AND STOOL UA Protein Negative mg/dL Negative mg/dL 04/06/2018 [facility] URINE AND STOOL UA pH 5.0 5.0 - 8.0 04/06/2018 [facility] URINE AND STOOL UA Spec Grav 1.013 <=1.030 04/06/2018 [facility] Culture: Urine 10,000 - 50,000 CFU/mL Skin Funmi 04/06/2018 [facility] CARDIAC ENZYMES Total CK 98 unit/L 12 - 191 04/06/2018 [facility] CARDIAC ENZYMES Troponin-I 0.19 ng/mL 0.00 - 0.40 04/06/2018 [facility] ELECTROLYTES AGAP 11.8 meq/L 10.0 - 20.0 04/06/2018 [facility] ELECTROLYTES B/C Ratio 23 6 - 25 04/06/2018 [facility] ELECTROLYTES Globulin 3.4 g/dL 2.7 - 4.2 04/06/2018 [facility] ELECTROLYTES A/G Ratio 1.0 0.7 - 1.6 04/06/2018 [facility] ELECTROLYTES Bili Total 0.5 mg/dL 0.2 - 1.3 04/06/2018 [facility] ELECTROLYTES Albumin Lvl 3.4 g/dL 3.5 - 5.0 04/06/2018 [facility] ELECTROLYTES ALT 10 unit/L 0 - 65 04/06/2018 [facility] ELECTROLYTES AST 17 unit/L 0 - 37 04/06/2018 [facility] ELECTROLYTES Total Protein 6.8 g/dL 6.4 - 8.4 04/06/2018 [facility] ELECTROLYTES Alk Phos 58 unit/L 39 - 136 04/06/2018 [facility] ELECTROLYTES eGFR 40 mL/min/1.73m2 04/06/2018 Result Comment: The eGFR is calculated using the [...] from the National Kidney Disease Education Program (NKDEP) which additionally recommends that when the eGFR is used in patients with extremes of body mass index for purposes of drug dosing, the eGFR should be multiplied by the estimated BMI. [facility] ELECTROLYTES Glucose Lvl 101 mg/dL 70 - 99 04/06/2018 [facility] ELECTROLYTES BUN 28 mg/dL 7 - 22 04/06/2018 [facility] ELECTROLYTES Creatinine Lvl 1.20 mg/dL 0.50 - 1.40 04/06/2018 [facility] ELECTROLYTES CO2 26 meq/L 24 - 32 04/06/2018 [facility] ELECTROLYTES Calcium Lvl 8.7 mg/dL 8.5 - 10.5 04/06/2018 [facility] ELECTROLYTES Potassium Lvl 3.8 meq/L 3.5 - 5.1 04/06/2018 [facility] ELECTROLYTES Chloride Lvl 108 meq/L 95 - 109 04/06/2018 [facility] ELECTROLYTES Sodium Lvl 142 meq/L 135 - 145 04/06/2018 [facility] HEMATOLOGY Monocytes 9.5 % 2.0 - 12.0 04/06/2018 [facility] HEMATOLOGY Lymphocytes 29.3 % 20.0 - 40.0 04/06/2018 [facility] HEMATOLOGY Basophils 1.0 % 0.0 - 1.0 04/06/2018 [facility] HEMATOLOGY Eosinophils 2.6 % 0.0 - 4.0 04/06/2018 [facility] HEMATOLOGY Neutrophils # 3.2 K/CMM 1.5 - 8.1 04/06/2018 [facility] Monocytes # 0.5 K/CMM 0.0 - 0.8 04/06/2018 [facility] Lymphocytes # 1.6 K/CMM 1.0 - 5.5 04/06/2018 [facility] Basophils # 0.1 K/CMM 0.0 - 0.2 04/06/2018 [facility] Eosinophils # 0.1 K/CMM 0.0 - 0.5 04/06/2018 [facility] Segs 57.6 % 45.0 - 75.0 04/06/2018 [facility] MCV 98.3 fL 80.0 - 98.0 04/06/2018 [facility] Hct 33.0 % 36.0 - 48.0 04/06/2018 [facility] MCHC 33.3 g/dL 32.0 - 36.0 04/06/2018 [facility] MCH 32.7 pg 27.0 - 31.0 04/06/2018 [facility] MPV 9.3 fL 7.4 - 10.4 04/06/2018 [facility] Platelet 142 K/CMM 133 - 450 04/06/2018 [facility] Hgb 11.0 g/dL 12.0 - 16.0 04/06/2018 [facility] RDW 14.5 % 11.5 - 14.5 04/06/2018 [facility] WBC 5.5 K/CMM 3.7 - 10.4 04/06/2018 [facility] RBC 3.35 M/CMM 4.20 - 5.40 04/06/2018 [facility] Brain wo contrast CT Brain wo contrast CT Clinical Indication: - headache Comparison: None TECHNIQUE: CT images were obtained from the foramen magnum to the vertex without the use of intravenous contrast on a multidetector CT. Coronal and sagittal reconstructions were obtained. CT radiation dose DLP: 901.26 mGy-cm FINDINGS: BRAIN PARENCHYMA: There are normal king-white interfaces, sulci and gyri. There are no focal mass lesions on this noncontrast head CT. There is no mass effect, midline shift or edema. There are no intra-axial or extra-axial fluid collections, intraventricular or intraparenchymal hemorrhage. The pineal, sellar, brainstem, cerebellum and skull base regions appear unremarkable. There are mild changes of cerebral and cerebellar atrophy and chronic microvascular ischemia. VENTRICLES: The lateral ventricles, third and fourth ventricles appear unremarkable. The basilar cisterns are normal. ORBITS, MASTOIDS AND PARANASAL SINUSES: The visualized orbits are unremarkable. The paranasal sinuses are unremarkable. The mastoid air cells are clear. SKULL: There are no osseous abnormalities. There is no soft tissue swelling noted. If there is further concern for intracranial pathology or acute stroke, MRI of the brain may be performed for complete assessment. IMPRESSION: Unremarkable noncontrast head CT with no mass, hemorrhage or subacute stroke. Chronic changes as described above. SL: [id number] 04/06/2018 - - Read by: Logan Alonzo MD Dictated Date/time: 04/06/18 06:00 Electronically Signed by: Logan Alonzo MD 04/06/18 06:02 FINAL REPORT [facility] URINE AND STOOL UA RBC 5 /HPF 0 - 2 03/02/[address] [facility] URINE AND STOOL UA Leuk Est Trace *ABN* (03/02/18 12:43 AM) Negative 03/02/[address] [facility] URINE AND STOOL UA Sq Epi Few /LPF Few /LPF 03/02/[address] [facility] URINE AND STOOL UA WBC 2 /HPF 0 - 5 03/02/[address] [facility] URINE AND STOOL UA Nitrite Negative (03/02/18 12:43 AM) Negative 03/02/[address] [facility] URINE AND STOOL UA Bili Negative *NA* (03/02/18 12:43 AM) Negative 03/02/[address] [facility] URINE AND STOOL UA Blood Negative (03/02/18 12:43 AM) Negative 03/02/2018 [facility] URINE AND STOOL UA Ketones Negative mg/dL Negative mg/dL 03/02/2018 [facility] AND STO[facility] UA Protein Negative mg/dL Negative mg/dL 03/02/2018 [facility] URINE AND STOOL UA Glucose Negative mg/dL Negative mg/dL 03/02/[address] [facility] URINE AND STOOL UA Mucus Few /LPF None Seen /LPF 03/02/2018 [facility] URINE AND STOOL UA Urobilinogen <=1.0 mg/dL 0.1 - 1.0 03/02/[address] [facility] URINE AND STOOL UA Spec Grav 1.053 <=1.030 03/02/[address] [facility] URINE AND STOOL UA pH 6.0 5.0 - 8.0 03/02/[address] [facility] URINE AND STOOL UA Turbidity Clear (03/02/18 12:43 AM) Clear 03/02/[address] [facility] URINE AND STOOL UA Color Yellow *NA* (03/02/18 12:43 AM) Yellow 03/02/[address] [facility] Culture: Urine 10,000 - 50,000 CFU/mL Skin Funmi 03/02/[address] [facility] CARDIAC ENZYMES CK MB Index 1.0 0.0 - 2.5 03/02/[address] [facility] CARDIAC ENZYMES CK MB 1.3 ng/mL 0.5 - 3.6 03/02/[address] [facility] CARDIAC ENZYMES Troponin-I 0.19 ng/mL 0.00 - 0.40 03/02/[address] [facility] CARDIAC ENZYMES Total CK 132 unit/L 12 - 191 03/02/[address] [facility] CHEM PANEL Lipase Lvl 105 unit/L 73 - 393 03/02/[address] [facility] CHEM PANEL eGFR 36 mL/min/1.73m2 03/02/2018 Result Comment: The eGFR is calculated using the [...] from the National Kidney Disease Education Program (NKDEP) which additionally recommends that when the eGFR is used in patients with extremes of body mass index for purposes of drug dosing, the eGFR should be multiplied by the estimated BMI. [place] CHEM PANEL A/G Ratio 0.9 0.7 - 1.6 03/02/2018 [facility] Globulin 4.5 g/dL 2.7 - 4.2 03/02/2018 [facility] PAN[facility] AGAP 15.1 meq/L 10.0 - 20.0 03/02/2018 [facility] B/C Ratio 18 6 - 25 03/02/2018 [facility] CHEM PANEL Bili Total 0.7 mg/dL 0.2 - 1.3 03/02/2018 [facility] CHEM PANEL Sodium Lvl 140 meq/L 135 - 145 03/02/2018 [place] CHEM PANEL Potassium Lvl 4.1 meq/L 3.5 - 5.1 03/02/2018 [facility] Creatinine Lvl 1.31 mg/dL 0.50 - 1.40 03/02/[address] [facility] CHEM PANEL BUN 24 mg/dL 7 - 22 03/02/2018 [place] CHEM PANEL Albumin Lvl 4.0 g/dL 3.5 - 5.0 03/02/2018 [facility] Total Protein 8.5 g/dL 6.4 - 8.4 03/02/2018 [facility] PANEL Calcium Lvl 9.6 mg/dL 8.5 - 10.5 03/02/2018 [facility] PAN[facility] CO2 26 meq/L 24 - 32 03/02/2018 [facility]M PANEL Chloride Lvl 103 meq/L 95 - 109 03/02/[address] [facility] CHEM PANEL AST 23 unit/L 0 - 37 03/02/[address] [facility] CHEM PANEL Alk Phos 71 unit/L 39 - 136 03/02/[address] [facility] CHEM PANEL ALT 20 unit/L 0 - 65 03/02/2018 [facility] Glucose Lvl 107 mg/dL 70 - 99 03/02/[address] [facility] HEMATOLOGY Basophils 1.4 % 0.0 - 1.0 03/02/[address] [facility] HEMATOLOGY Eosinophils 0.2 % 0.0 - 4.0 03/02/[address] [facility] HEMATOLOGY Monocytes # 0.5 K/CMM 0.0 - 0.8 03/02/[address] [facility] HEMATOLOGY Lymphocytes # 3.4 K/CMM 1.0 - 5.5 03/02/[address] [facility] HEMATOLOGY Segs-Bands # 6.0 K/CMM 1.5 - 8.1 03/02/[address] [facility] HEMATOLOGY Basophils # 0.1 K/CMM 0.0 - 0.2 03/02/[address] [facility] HEMATOLOGY Monocytes 4.9 % 2.0 - 12.0 03/02/[address] [facility] HEMATOLOGY Lymphocytes 33.9 % 20.0 - 40.0 03/02/[address] [facility] HEMATOLOGY Segs 59.6 % 45.0 - 75.0 03/02/2018 [facility] MPV 9.9 fL 7.4 - 10.4 03/02/2018 [facility] Platelet 142 K/CMM 133 - 450 03/02/2018 [facility] RDW 14.3 % 11.5 - 14.5 03/02/2018 [facility] MCHC 34.8 g/dL 32.0 - 36.0 03/02/2018 [facility] MCV 96.1 fL 80.0 - 98.0 03/02/2018 [facility] MCH 33.5 pg 27.0 - 31.0 03/02/2018 [facility] Hct 37.8 % 36.0 - 48.0 03/02/2018 [facility] Hgb 13.2 g/dL 12.0 - 16.0 03/02/2018 [facility] RBC 3.93 M/CMM 4.20 - 5.40 03/02/2018 [facility] WBC 10.0 K/CMM 3.7 - 10.4 03/02/[address] [facility] ED Abdomen/Pelvis IV contrast only CT ED Abdomen/Pelvis IV contrast only CT CT ABDOMEN AND PELVIS WITH CONTRAST DATED 03/01/2018. CLINICAL INDICATION: Acute abdominal pain. Nausea and vomiting. COMPARISON: None. TECHNIQUE: A CT of the abdomen and pelvis was performed using helical images from the thoracic outlet through the pubic symphysis after the intravenous administration of 75 mL Visipaque 320. The study was ordered without bowel contrast. Sagittal and coronal reconstructions were performed. CT Radiation Dose: XUZ=532 mGy-cm FINDINGS: SOLID ORGANS: No acute CT abnormalities of the liver, spleen, pancreas, adrenal glands or kidneys are detected. There is no CT evidence of acute renal collecting system obstruction or calcified renal collecting system stone. BILIARY: The gallbladder is normally distended. No significant biliary ductal dilatation is detected. BOWEL: Bowel assessment is limited by the absence of bowel contrast. Bilateral small bowel containing inguinal hernias are identified, left larger than right. No intestinal dilatation is identified to suggest obstruction. No intestinal wall thickening is noted to suggest ischemia or inflammation. The appendix is not identified and could be surgically absent. No secondary signs concerning for appendicitis are present. Colonic diverticulosis is identified without CT evidence of acute diverticulitis. PERITONEUM: No free intraperitoneal air or significant free intraperitoneal fluid. RETROPERITONEUM: The abdominal aorta is normal in caliber. No retroperitoneal mass or adenopathy. PELVIS: The patient is status post hysterectomy. No abnormalities of the ovaries/adnexa are identified. The urinary bladder is unremarkable. LOWER CHEST: The lung bases appear clear of acute disease. A small hiatal hernia is noted in the lower mediastinum. ADDITIONAL COMMENTS: Note is made of L4-L5 posterior spinal fixation hardware. IMPRESSION: 1. No acute CT abnormalities of the abdomen or pelvis are detected. 2. Diverticulosis without CT evidence of acute diverticulitis. 3. Bilateral small bowel containing inguinal hernias, left larger than right. It is no evidence of associated intestinal obstruction or ischemia. SL:131 03/01/2018 - - Read by: Arnaldo Gill MD Dictated Date/time: 03/01/18 23:54 Electronically Signed by: Arnaldo Gill MD 03/02/18 00:03 FINAL REPORT [facility] CARDIAC ENZYMES Total CK 138 unit/L 12 - 191 01/08/[address] [facility] CARDIAC ENZYMES Troponin-I 0.24 ng/mL 0.00 - 0.40 01/08/[address] [facility] CARDIAC ENZYMES CK MB 1.7 ng/mL 0.5 - 3.6 01/08/[address] [facility] CARDIAC ENZYMES CK MB Index 1.2 0.0 - 2.5 01/08/2018 [facility] CHEM PANEL eGFR 45 mL/min/1.73m2 01/08/2018 Result Comment: The eGFR is calculated using the [...] from the National Kidney Disease Education Program (NKDEP) which additionally recommends that when the eGFR is used in patients with extremes of body mass index for purposes of drug dosing, the eGFR should be multiplied by the estimated BMI. [facility] CHEM PANEL AST 31 unit/L 0 - 37 [facility] A/G Ratio 0.8 0.7 - 1.6 01/08/2018 [facility] CHEM PANEL Globulin 4.0 g/dL 2.7 - 4.2 01/08/2018 [facility]M PANEL B/C Ratio 20 6 - 25 01/08/2018 [facility]M PANEL Alk Phos 59 unit/L 39 - 136 01/08/2018 [facility] PANEL Bili Total 0.7 mg/dL 0.2 - 1.3 01/08/2018 [facility]EL AGAP 10.7 meq/L 10.0 - 20.0 01/08/2018 [facility]M PANEL Albumin Lvl 3.2 g/dL 3.5 - 5.0 01/08/2018 [facility] PANEL ALT 17 unit/L 0 - 65 01/08/2018 [facility] Total Protein 7.2 g/dL 6.4 - 8.4 01/08/2018 [facility]EL Potassium Lvl 5.7 meq/L 3.5 - 5.1 01/08/2018 [facility] PANEL Chloride Lvl 111 meq/L 95 - 109 01/08/2018 [facility]M PANEL CO2 27 meq/L 24 - 32 01/08/2018 [facility] PANEL Calcium Lvl 8.6 mg/dL 8.5 - 10.5 01/08/2018 [facility]M PANEL Sodium Lvl 143 meq/L 135 - 145 01/08/2018 [facility] PANEL Creatinine Lvl 1.10 mg/dL 0.50 - 1.40 01/08/2018 [facility]EL BUN 22 mg/dL 7 - 22 01/08/2018 [facility] PANEL Glucose Lvl 86 mg/dL 70 - 99 01/08/2018 [facility] PANEL Magnesium Lvl 2.3 mg/dL 1.8 - 2.4 01/08/2018 [facility] CHEM PANEL Lipase Lvl 94 unit/L 73 - 393 01/08/2018 [facility]M PANEL Phosphorus 3.6 mg/dL 2.5 - 4.5 01/08/[address] [facility] HEMATOLOGY INR 1.10 0.85 - 1.17 01/08/[address] [facility] HEMATOLOGY PT 14.2 s 12.0 - 14.7 01/08/[address] [facility] HEMATOLOGY MCV 97.2 fL 80.0 - 98.0 01/08/[address] [facility] HEMATOLOGY Hct 33.8 % 36.0 - 48.0 01/08/2018 [facility] MCH 33.4 pg 27.0 - 31.0 01/08/2018 [facility] MCHC 34.3 g/dL 32.0 - 36.0 01/08/2018 [facility] Hgb 11.6 g/dL 12.0 - 16.0 01/08/2018 [facility] RBC 3.48 M/CMM 4.20 - 5.40 01/08/2018 [facility] RDW 14.1 % 11.5 - 14.5 01/08/2018 [facility] Platelet 162 K/CMM 133 - 450 01/08/2018 [facility] MPV 9.7 fL 7.4 - 10.4 01/08/2018 [facility] WBC 7.1 K/CMM 3.7 - 10.4 01/08/2018 [facility] Basophils # 0.1 K/CMM 0.0 - 0.2 01/08/2018 [facility] Lymphocytes 23.5 % 20.0 - 40.0 01/08/2018 [facility] Eosinophils # 0.1 K/CMM 0.0 - 0.5 01/08/2018 [facility] Basophils 0.9 % 0.0 - 1.0 01/08/2018 [facility] Monocytes 7.1 % 2.0 - 12.0 01/08/2018 [facility] Eosinophils 1.6 % 0.0 - 4.0 01/08/2018 [facility] Monocytes # 0.5 K/CMM 0.0 - 0.8 01/08/2018 [facility] Segs-Bands # 4.8 K/CMM 1.5 - 8.1 01/08/2018 [facility] Lymphocytes # 1.7 K/CMM 1.0 - 5.5 01/08/2018 [facility] Segs 66.9 % 45.0 - 75.0 01/08/[address] [facility] Brain wo contrast CT Brain wo contrast CT Clinical Indication: - headache, on plavix. Comparison: 04/06/2016. TECHNIQUE: CT images were obtained from the foramen magnum to the vertex without the use of intravenous contrast on a multidetector CT. CT imaging was performed with exposure control parameters to reduce radiation dose. Coronal and sagittal reconstructions were obtained. CT radiation dose DLP: 997 mGy-cm FINDINGS: There is no specific evidence of intracranial hemorrhage, acute infarction or intracranial mass lesion. Redemonstrated are confluent and patchy hypodensities in the periventricular and subcortical white matter consistent with chronic small vessel ischemic disease. There is generalized brain parenchymal volume loss, similar compared to prior. There is no specific evidence of hydrocephalus. There is atherosclerotic calcification involving the visualized internal carotid and vertebral arteries. The visualized paranasal sinuses and mastoid air cells are clear. The bones and extracranial soft tissues are not significantly changed, including prominent degenerative changes of the temporomandibular joints. If there is further concern for intracranial pathology or acute stroke, MRI of the brain may be performed for complete assessment. IMPRESSION: No specific evidence of acute intracranial abnormality. FABIENNE: JULIANN 01/08/2018 - - Read by: Kevin Stearns MD Dictated Date/time: 01/08/18 11:58 Electronically Signed by: Kevin Stearns MD 01/08/18 12:03 FINAL REPORT [facility] Chest 1view DX Chest 1view DX Patient Name: NOHEMI CLINE : 1930; Age: 87 years Female MR: [id number] Study: Chest 1view DX Order Time: 01/08/2018 10:32 AM CDT CLINICAL INDICATION: - COUGH, CONGESTION COMPARISON: Chest radiograph on 07/30/2014 FINDINGS: Lines: Stable position of the left chest pacemaker. Lungs: Hyperinflated lungs with scarring at the apices. Small calcified granuloma within the right midlung. No focal consolidation, effusion, or pneumothorax. Mediastinum: The cardiac silhouette is mildly enlarged. Midline trachea. Bones and soft tissues: Postoperative changes of the thorax. IMPRESSION: No acute cardiopulmonary abnormalities. SL: [id number] 01/08/2018 - - Read by: Diogo Butler MD Dictated Date/time: 01/08/18 10:42 Electronically Signed by: Diogo Butler MD 01/08/18 10:43 FINAL REPORT [facility] Brain wo contrast CT Brain wo contrast CT EXAM: CT BRAIN WITHOUT CONTRAST DATE: 04/06/2016 11:47 AM CDT CLINICAL INDICATION: . Dissociative amnesia TECHNIQUE : Noncontrast images of the brain are obtained from the skull base to the vertex. Axial, sagittal, and coronal images are interpreted. DLP: 1247 mGy-cm COMPARISON: Brain CT of 07/30/2014 FINDINGS: There is no evidence of cerebral edema, mass, mass effect, hemorrhage, recent cortical infarct. There is moderate generalized cortical and deep white matter volume loss with passive enlargement of the ventricles and extra-axial spaces. Chronic small vessel ischemic changes are present. The lateral ventricles, cortical sulci, and basal cisterns are patent. There are calcified atherosclerotic changes. .The sinuses and skull base are unremarkable. IMPRESSION: 1. Moderate generalized volume loss with slight temporal lobe dominance. Temporal volume loss is slightly asymmetric to the left. 2. Moderate to advanced chronic microvascular ischemic changes. No evidence of previous cortical ischemia 3. Cerebrovascular atherosclerosis 04/06/2016 - - Read by: Hayes Rader MD Dictated Date/time: 04/06/16 12:33 Electronically Signed by: Hayes Rader MD 04/06/16 12:35 FINAL REPORT [facility] CHEM PANEL eGFR 59 mL/min/1.73m2 07/31/2014 1Result Comment: The eGFR is calculated using [...] from the National Kidney Disease Education Program (NKDEP) which additionally recommends that when the eGFR is used in patients with extremes of body mass index for purposes of drug dosing, the eGFR should be multiplied by the estimated BMI. [facility] CHEM PANEL Sodium Lvl 140 meq/L 135 - 145 07/31/2014 [facility] CHEM PANEL Potassium Lvl 3.9 meq/L 3.5 - 5.1 07/31/2014 [facility] CHEM PANEL Glucose Lvl 98 mg/dL 70 - 99 07/31/2014 3Interpretive Data: Adult reference range values reflect the clinical guidelines of the [place] [employer]. [facility] CHEM PANEL BUN 18 mg/dL 7 - 22 07/31/2014 [facility] CHEM PANEL Creatinine Lvl 0.9 mg/dL 0.5 - 1.4 07/31/2014 [facility] CHEM PANEL Calcium Lvl 7.9 mg/dL 8.5 - 10.5 07/31/2014 [facility] CHEM PANEL CO2 29 meq/L 24 - 32 07/31/2014 [facility] CHEM PANEL AGAP 9.9 meq/L 10.0 - 20.0 07/31/2014 [facility] CHEM PANEL Chloride Lvl 105 meq/L 95 - 109 07/31/2014 [facility] HEMATOLOGY RDW 14.7 % 11.5 - 14.5 07/31/2014 [facility] HEMATOLOGY Platelet 277 K/CMM 133 - 450 07/31/2014 [facility] HEMATOLOGY MPV 8.1 fL 7.4 - 10.4 07/31/2014 [facility] HEMATOLOGY MCHC 33.5 g/dL 32.0 - 36.0 07/31/2014 [facility] HEMATOLOGY MCV 95.1 fL 80.0 - 98.0 07/31/2014 [facility] MCH 31.8 pg 27.0 - 31.0 07/31/2014 [facility] HEMATOLOGY Hct 27.4 % 36.0 - 48.0 07/31/2014 [facility] HEMATOLOGY RBC 2.89 M/CMM 4.20 - 5.40 07/31/2014 [facility] HEMATOLOGY WBC 8.3 K/CMM 3.7 - 10.4 07/31/2014 [facility] HEMATOLOGY Hgb 9.2 g/dL 12.0 - 16.0 07/31/2014 [facility] HEMATOLOGY Basophils # 0.1 K/CMM 0.0 - 0.2 07/31/2014 [facility] HEMATOLOGY Segs-Bands # 5.4 K/CMM 1.5 - 8.1 07/31/2014 [facility] HEMATOLOGY Lymphocytes # 1.9 K/CMM 1.0 - 5.5 07/31/2014 [facility] HEMATOLOGY Eosinophils # 0.2 K/CMM 0.0 - 0.5 07/31/2014 [facility] HEMATOLOGY Monocytes # 0.8 K/CMM 0.0 - 0.8 07/31/2014 [facility] HEMATOLOGY Basophils 0.7 % 0.0 - 1.0 07/31/2014 [facility] HEMATOLOGY Eosinophils 1.9 % 0.0 - 4.0 07/31/2014 [facility] HEMATOLOGY Monocytes 9.2 % 2.0 - 12.0 07/31/2014 [facility] HEMATOLOGY Lymphocytes 23.4 % 20.0 - 40.0 07/31/2014 [facility] HEMATOLOGY Segs 64.8 % 45.0 - 75.0 07/31/2014 [facility] URINE AND STOOL UA Color Yellow *NA* (07/30/14 1:17 PM) Yellow 07/30/2014 [facility] URINE AND STOOL UA Ketones 20 mg/dL Negative mg/dL 07/30/2014 [facility] URINE AND STOOL UA Glucose Negative mg/dL Negative mg/dL 07/30/2014 [facility] URINE AND STOOL UA Protein Negative mg/dL Negative mg/dL 07/30/2014 [facility] URINE AND STOOL UA pH 6.0 5.0 - 8.0 07/30/2014 [facility] URINE AND STOOL UA Turbidity Marked *ABN* (07/30/14 1:17 PM) Clear 07/30/2014 [facility] URINE AND STOOL UA Spec Grav 1.012 <=1.030 07/30/2014 [facility] URINE AND STOOL UA Bacteria Occasional /HPF None Seen /HPF 07/30/2014 [facility] URINE AND STOOL UA RBC 3 /HPF 0 - 2 07/30/2014 [facility] URINE AND STOOL UA Nitrite Negative (07/30/14 1:17 PM) Negative 07/30/2014 [facility] URINE AND STOOL UA Bili Negative *NA* (07/30/14 1:17 PM) Negative 07/30/2014 [facility] URINE AND STOOL UA Urobilinogen 4.0 mg/dL 0.1 - 1.0 07/30/2014 [facility] URINE AND STOOL UA Blood Negative (07/30/14 1:17 PM) Negative 07/30/2014 [facility] URINE AND STOOL UA WBC 18 /HPF 0 - 5 07/30/2014 [facility] URINE AND STOOL UA Leuk Est Moderate *ABN* (07/30/14 1:17 PM) Negative 07/30/2014 [facility] URINE AND STOOL UA Sq Epi Many /LPF Few /LPF 07/30/2014 [facility] CARDIAC ENZYMES Troponin-I 2.77 ng/mL 0.00 - 0.40 07/30/2014 5Result Comment: Critical Result(s) called to patric at 07/30/2014 13:39 bynm. Read back OK. [facility] CARDIAC ENZYMES CK MB 2.2 ng/mL 0.5 - 3.6 07/30/2014 [facility] CHEM PANEL eGFR 46 mL/min/1.73m2 07/30/2014 2Result Comment: The eGFR is calculated using the [...] from the National Kidney Disease Education Program (NKDEP) which additionally recommends that when the eGFR is used in patients with extremes of body mass index for purposes of drug dosing, the eGFR should be multiplied by the estimated BMI. [facility] CHEM PANEL Glucose Lvl 162 mg/dL 70 - 99 07/30/2014 4Interpretive Data: Adult reference range values reflect the clinical guidelines of the [place] [employer]. [facility] CHEM PANEL Chloride Lvl 103 meq/L 95 - 109 07/30/2014 [facility] CHEM PANEL BUN 20 mg/dL 7 - 22 07/30/2014 [facility] CHEM PANEL Creatinine Lvl 1.1 mg/dL 0.5 - 1.4 07/30/2014 [facility] CHEM PANEL Sodium Lvl 138 meq/L 135 - 145 07/30/2014 [facility] CHEM PANEL CO2 29 meq/L 24 - 32 07/30/2014 [facility] CHEM PANEL Calcium Lvl 8.3 mg/dL 8.5 - 10.5 07/30/2014 [facility] CHEM PANEL Potassium Lvl 3.7 meq/L 3.5 - 5.1 07/30/2014 [facility] CHEM PANEL AGAP 9.7 meq/L 10.0 - 20.0 07/30/2014 [facility] HEMATOLOGY Segs-Bands # 6.0 K/CMM 1.5 - 8.1 07/30/2014 [facility] HEMATOLOGY Lymphocytes # 1.3 K/CMM 1.0 - 5.5 07/30/2014 [facility] HEMATOLOGY Basophils 0.5 % 0.0 - 1.0 07/30/2014 [facility] HEMATOLOGY Monocytes # 0.7 K/CMM 0.0 - 0.8 07/30/2014 [facility] HEMATOLOGY Segs 74.3 % 45.0 - 75.0 07/30/2014 [facility] HEMATOLOGY Lymphocytes 15.8 % 20.0 - 40.0 07/30/2014 [facility] Eosinophils 0.5 % 0.0 - 4.0 07/30/2014 [facility] Monocytes 8.9 % 2.0 - 12.0 07/30/2014 [facility] PT 14.1 s 12.0 - 14.7 07/30/2014 [facility] PTT 29.2 s 22.9 - 35.8 07/30/2014 8Interpretive Data: Heparin Therapeutic Range: 57 - [address] [facility] INR 1.08 0.85 - 1.17 07/30/2014 6Interpretive Data: RECOMMENDED RANGES FOR PROTIME INR: 2.0-3.0 for most medical and surgical thromboembolic states. 2.5-3.5 for artificial heart valves and recurrent embolism. INR SHOULD BE USED ONLY FOR PATIENTS ON STABLE ANTICOAGULANT THERAPY. [facility] MCV 95.2 fL 80.0 - 98.0 07/30/2014 [facility] Hct 29.3 % 36.0 - 48.0 07/30/2014 [facility] MCHC 33.4 g/dL 32.0 - 36.0 07/30/2014 [facility] RDW 14.6 % 11.5 - 14.5 07/30/2014 [facility] MCH 31.8 pg 27.0 - 31.0 07/30/2014 [facility] MPV 8.7 fL 7.4 - 10.4 07/30/2014 [facility] Platelet 271 K/CMM 133 - 450 07/30/2014 [facility] WBC 8.0 K/CMM 3.7 - 10.4 07/30/2014 [facility] RBC 3.07 M/CMM 4.20 - 5.40 07/30/2014 [facility] Hgb 9.8 g/dL 12.0 - 16.0 07/30/2014 [facility] D-Dimer 3.92 ug/mL FEU 07/30/2014 7Interpretive Data: In DIC, quantitative D-Dimer is generally greater than 0.66 ug/mL FEU. Values of quantitative D-Dimer less than 0.40 ug/mL FEU have been reported to be associated with a low probability of deep vein thrombosis/pulmonary embolism. This test alone should not be used to rule out DVT/PE. [facility] Vital Signs Vital Sign Value Date Comments Source Temperature Oral (F) 98.2 F 04/06/2018 [facility] Systolic (mm Hg) 118 04/06/2018 [facility] Diastolic (mm Hg) 62 04/06/2018 [facility] Respitory Rate 15 04/06/2018 [facility] Respitory Rate 17 04/06/2018 [facility] Systolic (mm Hg) 147 04/06/2018 [facility] Diastolic (mm Hg) 62 04/06/2018 [facility] Respitory Rate 20 04/06/2018 [facility] Heart Rate 71 04/06/2018 [facility] Temperature Oral (F) 98.5 F 04/06/2018 [facility] Diastolic (mm Hg) 66 04/06/2018 [facility] Systolic (mm Hg) 154 04/06/2018 [facility] Heart Rate 88 04/06/2018 [facility] Temperature Oral (F) 98.5 F 04/06/2018 [facility] Temperature Oral (F) 98.0 F 03/02/[address] [facility] Systolic (mm Hg) 139 03/02/[address] [facility] Diastolic (mm Hg) 71 03/02/[address] [facility] Respitory Rate 19 03/02/[address] [facility] Systolic (mm Hg) 142 03/02/[address] [facility] Diastolic (mm Hg) 68 03/02/[address] [facility] Respitory Rate 17 03/02/[address] [facility] Respitory Rate 14 03/02/[address] [facility] Systolic (mm Hg) 161 03/02/[address] [facility] Diastolic (mm Hg) 63 03/02/[address] [facility] Temperature Oral (F) 98.1 F 03/02/[address] [facility] BMI Calculated 21.77 03/01/2018 [facility] Weight 54 03/01/[address] [facility] Height 157.48 cm 03/01/[address] [facility] Heart Rate 66 03/01/[address] [facility] Temperature Oral (F) 98 F 03/01/[address] [facility] Temperature Oral (F) 98.3 F 01/08/[address] [facility] Respitory Rate 16 01/08/[address] [facility] Heart Rate 74 [facility]2018 [facility] Systolic ([facility] Hg) 129 01/08/2018 [facility] Diastolic (mm Hg) 57 01/08/[address] [facility] Heart Rate 72 01/08/[address] [facility] Respitory Rate 17 01/08/[address] [facility] Systolic (mm Hg) 155 01/08/[address] [facility] Diastolic (mm Hg) 67 01/08/[address] [facility] BMI Calculated 19.53 01/08/[address] [facility] Weight 50 01/08/[address] [facility] Heart Rate 73 01/08/[address] [facility] Systolic (mm Hg) 163 01/08/[address] [facility] Diastolic (mm Hg) 84 01/08/[address] [facility] Respitory Rate 16 01/08/[address] [facility] Temperature Oral (F) 98.6 F 01/08/[address] [facility] Height 160.02 cm 01/08/[address] [facility] Temperature Oral (F) 97.9 F 08/01/2014 [facility] Heart Rate 86 08/01/2014 [facility] Respitory Rate 18 08/01/2014 [facility] Diastolic (mm Hg) 59 08/01/2014 [facility] Systolic (mm Hg) 103 08/01/2014 [facility] Temperature Oral (F) 99.0 F 07/31/2014 [facility] Diastolic (mm Hg) 73 07/31/2014 [facility] Systolic (mm Hg) 123 07/31/2014 [facility] Respitory Rate 18 07/31/2014 [facility] Diastolic (mm Hg) 54 07/31/2014 [facility] Systolic (mm Hg) 127 07/31/2014 [facility] Respitory Rate 15 07/31/2014 [facility] Temperature Oral (F) 98.2 F 07/31/2014 [facility] Weight 51.7 07/31/2014 [facility] BMI Calculated 21.54 07/31/2014 [facility] Height 154.94 cm 07/31/2014 [facility] Weight 51.364 07/30/2014 [facility] BMI Calculated 22.12 07/30/2014 [facility] Height 152.4 cm 07/30/2014 [facility] Heart Rate 75 07/30/2014 [facility] Encounters Location Location Details Encounter Type Encounter Number Reason For Visit Attending Provider ADM Date DC Date Status Source [facility] Inpatient [id number] Harley Bullock 07/30/2014 08/01/2014 [facility] Merry Perez MD PA Unknown [id number] 07/30/2014 07/30/2014 Merry Perez MD PA Unknown [id number] 07/30/2014 07/30/2014 Merry Perez MD PA Unknown [id number] 07/30/2014 07/30/2014 Merry Perez MD PA Unknown [id number] 07/30/2014 07/30/2014 Merry Perez MD PA Unknown [id number] 07/30/2014 07/30/2014 Merry Perez MD PA Unknown [id number] 07/30/2014 07/30/2014 Merry Perez MD PA Unknown [id number] 07/30/2014 07/30/2014 Merry Perez MD PA Unknown [id number] 07/30/2014 07/30/2014 Merry Perez MD PA Unknown [id number] 10/20/2014 10/20/2014 Merry Perez MD PA Unknown [id number] 10/20/2014 10/20/2014 Merry Perez MD PA Unknown [id number] 10/20/2014 10/20/2014 Merry Perez MD PA Unknown [id number] 10/20/2014 10/20/2014 Merry Perez, MD PA Unknown [id number] 10/20/2014 10/20/2014 Merry Perez MD PA Unknown [id number] 10/20/2014 10/20/2014 Merry Perez MD PA Unknown [id number] 10/20/2014 10/20/2014 Merry Perez MD PA Unknown [id number] 09/09/2015 09/09/2015 Merry Perez MD PA Unknown [id number] 09/09/2015 09/09/2015 Merry Perez MD PA Unknown [id number] 09/09/2015 09/09/2015 Merry Perez MD PA Unknown [id number] 09/09/2015 09/09/2015 Merry Perez MD PA Unknown [id number] 09/09/2015 09/09/2015 Merry Perez MD PA Unknown [id number] 09/09/2015 09/09/2015 Merry Perez MD PA Unknown [id number] 09/09/2015 09/09/2015 Merry Perez MD PA Unknown [id number] 10/28/2015 10/28/2015 Merry Perez MD PA Unknown [id number] 10/28/2015 10/28/2015 Merry Perez MD PA Unknown [id number] 10/28/2015 10/28/2015 Merry Perez MD PA Unknown [id number] 10/28/2015 10/28/2015 Merry Perez MD PA Unknown [id number] 10/28/2015 10/28/2015 Merry Perez MD PA Unknown [id number] 10/28/2015 10/28/2015 Merry Perez MD PA Unknown [id number] 12/24/2015 12/24/2015 Merry Perez MD PA Unknown [id number] 12/24/2015 12/24/2015 Merry Perez MD PA Unknown [id number] 12/24/2015 12/24/2015 Merry Perez MD PA Unknown [id number] 12/24/2015 12/24/2015 Merry Perez MD PA Unknown [id number] 12/24/2015 12/24/2015 MD JAK Villarreal Unknown [id number] 12/24/2015 12/24/2015 MD JAK Villarreal Unknown [id number] 12/24/2015 12/24/2015 MD JAK Villarreal Unknown [id number] 12/24/2015 12/24/2015 MD JAK Villarreal Unknown [id number] 12/24/2015 12/24/2015 Merry Perez [facility] [place] [id number] [facility] Rush Unknown [id number] 07/19/2016 07/19/2016 MD JAK Villarreal Unknown [id number] 07/19/2016 07/19/2016 MD JAK Villarreal Unknown [id number] 07/19/2016 07/19/2016 MD JAK Villarreal Unknown [id number] 09/27/2016 09/27/2016 MD JAK Villarreal Unknown [id number] 09/27/2016 09/27/2016 Merry Perez MD PA Unknown [id number] 09/27/2016 09/27/[address] [facility] [id number] Aldair Sousa 01/08/2018 01/08/2018 [facility] [id number] Darryl Pacheco 03/01/2018 03/02/2018 [facility] [id number] Serina Alcanter 04/06/2018 04/06/2018 [facility] Procedures Procedure Code Date Perfomer Comments Source CABG x 3 - Coronary artery bypass grafts x 3 [id number] 07/22/2014 [facility] CABG x 3 - Coronary artery bypass grafts x 3 [id number] 07/22/[address] [facility] CABG x 3 - Coronary artery bypass grafts x 3 [id number] 07/22/2014 [facility]
--- OUTSIDE RECORDS SUMMARY | 2018-11-15 11:01 | XMS REPORT ---
Author Author Mrery Perez Organization [employer] Address Unknown Phone Unavailable Care Team Providers Care Technical Sales Consultant Name Role Phone Merry Perez CP Unavailable Encounters Encounter Location Date Unknown Merry Perez MD [place] Oct 28, 2015 Unknown Merry Perez MD [place] December 24, 2015 Unknown Merry Perez MD [place] December 24, 2015 Unknown Merry Perez MD [place] Jul 30, 2014 Unknown Merry Perez MD [place] Oct 20, 2014 Unknown Merry Perez MD [place] Sep 09, 2015 Problems Problem Type Condition ICD-9 Code Onset Dates Condition Status Problem Essential hypertension I10 Active Problem Pure hypercholesterolemia E78.0 Active Problem Generalized osteoarthrosis, 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 Active Problem Systolic CHF with reduced left ventricular function, 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 Status Former Smoker Quit in 1970 Oct 22, 2015 Alcohol Use Yes. Oct 22, 2015 Alcohol Screening: Yes. Did you have a drink containing alcohol in the past year?: No, Points: 0, Interpretation: Negative Oct 22, 2015 Marital Status: single. Oct 22, 2015 Do you drink alcohol? Yes. 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
--- OUTSIDE RECORDS SUMMARY | 2018-11-15 11:01 | XMS REPORT ---
Author Author Merry Perez Organization [employer] Address Unknown Phone Unavailable Care Team Providers Care Senior Windows Systems Administrator Name Role Phone Merry Perez CP Unavailable [...] valve disorder I36.9 Active Problem Atherosclerosis of [place] arteries of extremity with intermittent claudication I70.219 [...] Yes. 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
--- OUTSIDE RECORDS SUMMARY | 2018-11-15 11:01 | XMS REPORT ---
Author Author Merry Perez Organization [employer] Address Unknown Phone Unavailable Care Team Providers Care Senior Clinical Sas Programmer Name Role Phone Merry Perez CP Unavailable Encounters Encounter Location Date Unknown Merry Perez MD [place] Jul 30, 2014 Problems Problem Type Condition ICD-9 Code Onset Dates Condition Status Problem Shortness of breath 786.05 Active Problem Carotid Bruit 785.9 Active Problem Abnormal EKG 794.31 Active Problem Atherosclerosis of [place] arteries of the extremities with intermittent claudication 440.21 Active Problem Carotid art occ w/o infarc 433.10 Active Problem Angina 413.9 Active Problem CAD, [place] Coronary Artery 414.01 Active Problem Hypercholesterolemia 272.0 Active Problem Generalized osteoarthrosis, involving multiple sites 715.09 Active Social History Social History Element Qualifiers Date Reported Smoking . Status Former Smoker Quit in 1970 Aug 06, 2014 Alcohol Use Yes. Aug 06, 2014 Alcohol Screening: Yes. Did you have a drink containing alcohol in the past year?: No, Points: 0, Interpretation: Negative Aug 06, 2014 Marital Status: single. Aug 06, 2014 Do you drink alcohol? Yes. Aug 06, 2014 Family history Qualifier Description Comment Date Reported Mother Heart disease, [place] Aug 06, 2014 Father Heart disease[place] Aug 06, 2014 Summary Purpose eClinicalWorks Submission
--- OUTSIDE RECORDS SUMMARY | 2018-11-15 11:01 | XMS REPORT ---
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
--- OUTSIDE RECORDS SUMMARY | 2018-11-15 11:01 | XMS REPORT ---
Author Author Merry Perez Organization [employer] Address Unknown Phone Unavailable Care Team Providers Care Roads And Parking Lots Sweeper Operator Name Role Phone Merry Perez CP Unavailable Encounters Encounter Location Date Unknown Merry Perez MD PA Jul 30, 2014 Unknown Merry Perez MD PA Oct 20, 2014 Unknown Merry Perez MD PA Sep 09, 2015 Problems Problem Type Condition ICD-9 Code Onset Dates Condition Status Problem Atheroscler [place] arteries the extremities w/[place] claudication 440.21 Active Problem Essential hypertension I10 Active Problem Systolic CHF with reduced left ventricular function, NYHA class 3 I50.20 Active Problem 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 Active Problem Angina 413.9 Active Problem Shortness of breath R06.02 Active Problem CAD, [place] Coronary Artery 414.01 Active Problem Shortness of breath 786.05 Active Problem Atherosclerosis of [place] arteries of extremity with intermittent claudication I70.219 Active Problem Pure hypercholesterolemia E78.0 Active Problem Generalized osteoarthrosis, 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 Active Problem Abnormal electrocardiogram R94.31 Active Problem Carotid artery disease I77.9 Active Problem Abnormal EKG 794.31 Active Problem Carotid art occ w/o infarc 433.10 Active Problem Generalized osteoarthrosis, involving multiple sites 715.09 Active Problem Hypercholesterolemia 272.0 Active Problem CAD (coronary artery disease) of bypass graft 414.04 Active Problem Mitral regurgitation 424.0 Active Problem Hypertension 401.9 Active Problem 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 Status Former Smoker Quit in 1970 Sep 15, 2015 Alcohol Use Yes. Sep 15, 2015 Alcohol Screening: Yes. Did you have a drink containing alcohol in the past year?: No, Points: 0, Interpretation: Negative Sep 15, 2015 Marital Status: single. Sep 15, 2015 Do you drink alcohol? Yes. 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
--- OUTSIDE RECORDS SUMMARY | 2018-11-15 11:01 | XMS REPORT ---
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
--- OUTSIDE RECORDS SUMMARY | 2018-11-15 11:01 | XMS REPORT ---
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 Active Problem Systolic CHF with reduced left ventricular function, NYHA class 3 I50.20 Active Problem 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 Problem Atherosclerosis of [place] arteries of extremity with intermittent claudication I70.219 Active Problem Nonrheumatic mitral (valve) insufficiency I34.0 Active Problem Abnormal electrocardiogram R94.31 Active Problem Carotid artery disease I77.9 Active Problem 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
--- OUTSIDE RECORDS SUMMARY | 2018-11-15 11:01 | XMS REPORT ---
Author Author Merry Perez Organization e[employer] Address Unknown Phone Unavailable Care Team Providers Care Journeyman Plumber Name Role Phone Merry Perez CP Unavailable [...] in place Z95.810 Active Problem Atherosclerosis of [place] arteries of extremity with intermittent claudication I70.219 Active Medications Medication Code System Code Instructions Start Date End Date Status Dosage Metoprolol Tartrate [facility] [id number] 50 mg Orally daily Active 1 tablet Results No Known Results Summary Purpose eClinicalWorks Submission
--- OUTSIDE RECORDS SUMMARY | 2018-11-15 11:01 | XMS REPORT ---
Author Author Merry Perez Organization eClinical[employer] Address Unknown Phone Unavailable Care Team Providers Care Maintenance Groundskeeper Name Role Phone Merry Perez CP Unavailable [...] Merry Perez MD PA Sep 27, 2016 Unknown Merry Perez MD PA Sep 27, [...] valve disorder I36.9 Active Problem Atherosclerosis of [place] arteries of extremity with intermittent claudication I70.219 [...] Yes. 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
--- OUTSIDE RECORDS SUMMARY | 2018-11-15 11:02 | XMS REPORT | Summary of Care ---
Author Author [facility] Organization [facility] Address Unknown Phone Unavailable Encounter HQ Meri(FIN) [id number] Date(s): 01/08/18 - 01/08/18 [facility] [address] [place] [address]- [facility] [phone] Encounter Diagnosis Headache (Discharge Diagnosis) - 01/08/18 Headache (Final) - Unspecified dementia without behavioral disturbance (Final) - Essential (primary) hypertension (Final) - Hyperlipidemia, unspecified (Final) - Atherosclerotic heart disease of [place] coronary artery without angina pectoris (Final) - marine oil terminal superintendent (current) use of antithrombotics/antiplatelets (Final) - Discharge Disposition: Home or Self Care Attending [...]
--- OUTSIDE RECORDS SUMMARY | 2018-11-15 11:02 | XMS REPORT | Summary of Care ---
Author Author [facility] Organization [facility] Address Unknown Phone Unavailable Encounter HQ Meri(FIN) [id number] Date(s): 04/06/18 - 04/06/18 [facility] [address] [place] [address]- Encounter Diagnosis Essential (primary) hypertension (Final) - 04/11/18 Unspecified dementia without behavioral disturbance (Final) - Atherosclerotic heart disease of [place] coronary artery without angina pectoris (Final) - Presence of aortocoronary bypass graft (Final) - Presence of cardiac pacemaker (Final) - superintendent terminal (current) use of aspirin (Final) - Personal history of nicotine dependence (Final) - Elevated blood pressure reading with diagnosis of hypertension (Discharge Diagnosis) - 04/06/18 Dementia (Discharge Diagnosis) - 04/06/18 HTN (hypertension) (Discharge Diagnosis) - 04/06/18 Discharge Disposition: Home or Self Care Attending Physician: Serina Gutierrez MD Vital Signs 1 2 3 Most recent to oldest [Reference Range]: 98.2 DegF (04/06/18 6:20 AM) 98.5 DegF (04/06/18 4:18 AM) 98.5 DegF (04/06/18 3:53 AM) Temperature Oral [96.4-99.1 DegF] 118/62 mmHg (04/06/18 6:20 AM) 147/62 mmHg *HI* (04/06/18 5:20 AM) Blood Pressure [90-140/60-90 mmHg] 154 mmHg *HI* (04/06/18 4:18 AM) Systolic Blood Pressure [90-140 mmHg] 66 mmHg (04/06/18 4:18 AM) Diastolic Blood Pressure [60-90 mmHg] 15 BRMIN (04/06/18 6:20 AM) 17 BRMIN (04/06/18 5:20 AM) 20 BRMIN (04/06/18 4:18 AM) Respiratory Rate [14-20 BRMIN] 71 bpm (04/06/18 4:18 AM) 88 bpm (04/06/18 3:53 AM) Peripheral Pulse Rate [60-100 bpm] Problem List Condition Effective Dates Status Health Status Informant Coronary artery Resolved disease(Confirmed) HTN Resolved (hypertension)(Confi rmed) Allergies, Adverse Reactions, Alerts Substance Reaction Severity Status NKDA Active Medications No data available for this section Results ELECTROLYTES Most recent to 1 oldest [Reference Range]: Sodium Lvl [135-145 142 mEq/L mEq/L] (04/06/18 4:32 AM) Potassium Lvl 3.8 mEq/L [3.5-5.1 mEq/L] (04/06/18 4:32 AM) Chloride Lvl [95-109 108 mEq/L mEq/L] (04/06/18 4:32 AM) CO2 [24-32 mEq/L] 26 mEq/L (04/06/18 4:32 AM) AGAP [10.0-20.0 11.8 mEq/L mEq/L] (04/06/18 4:32 AM) CHEM PANEL Most recent to 1 oldest [Reference Range]: Creatinine Lvl 1.20 mg/dL [0.50-1.40 mg/dL] (04/06/18 4:32 AM) eGFR 40 mL/min/1.73m2 1 *NA* (04/06/18 4:32 AM) BUN [7-22 mg/dL] 28 mg/dL *HI* (04/06/18 4:32 AM) B/C Ratio [6-25] 23 (04/06/18 4:32 AM) Glucose Lvl [70-99 101 mg/dL mg/dL] *HI* (04/06/18 4:32 AM) Total Protein 6.8 g/dL [6.4-8.4 g/dL] (04/06/18 4:32 AM) Albumin Lvl [3.5-5.0 3.4 g/dL g/dL] *LOW* (04/06/18 4:32 AM) Globulin [2.7-4.2 3.4 g/dL g/dL] (04/06/18 4:32 AM) A/G Ratio [0.7-1.6] 1.0 (04/06/18 4:32 AM) Calcium Lvl 8.7 mg/dL [8.5-10.5 mg/dL] (04/06/18 4:32 AM) ALT [0-65 unit/L] 10 unit/L (04/06/18 4:32 AM) AST [0-37 unit/L] 17 unit/L (04/06/18 4:32 AM) Alk Phos [39-136 58 unit/L unit/L] (04/06/18 4:32 AM) Bili Total [0.2-1.3 0.5 mg/dL mg/dL] (04/06/18 4:32 AM) 1Result Comment: The eGFR is calculated [...] 1 oldest [Reference Range]: Total CK [12-191 98 unit/L unit/L] (04/06/18 4:32 AM) Troponin-I 0.19 ng/mL [0.00-0.40 ng/mL] (04/06/18 4:32 AM) URINE AND STOOL Most recent to 1 oldest [Reference Range]: UA Turbidity [Clear] Slight *ABN* (04/06/18 5:26 AM) UA Color Ltyellow *NA* (04/06/18 5:26 AM) UA pH [5.0-8.0] 5.0 (04/06/18 5:26 AM) UA Spec Grav 1.013 [<=1.030] (04/06/18 5:26 AM) UA Glucose [Negative Negative mg/dL mg/dL] *NA* (04/06/18 5:26 AM) UA Blood [Negative] Negative (04/06/18 5:26 AM) UA Ketones [Negative Negative mg/dL mg/dL] *NA* (04/06/18 5:26 AM) UA Protein [Negative Negative mg/dL mg/dL] (04/06/18 5:26 AM) UA Urobilinogen <=1.0 mg/dL [0.1-1.0 mg/dL] *NA* (04/06/18 5:26 AM) UA Bili [Negative] Negative *NA* (04/06/18 5:26 AM) UA Leuk Est Trace [Negative] *ABN* (04/06/18 5:26 AM) UA Nitrite Negative [Negative] (04/06/18 5:26 AM) UA WBC [0-5 /HPF] 3 /HPF (04/06/18 5:26 AM) UA RBC [0-2 /HPF] 1 /HPF (04/06/18 5:26 AM) UA Bacteria [None Occasional /HPF Seen /HPF] *NA* (04/06/18 5:26 AM) UA Sq Epi [Few /LPF] Occasional /LPF *NA* (04/06/18 5:26 AM) UA Hyal Cast [0-2 1 /LPF /LPF] (04/06/18 5:26 AM) HEMATOLOGY Most recent to 1 oldest [Reference Range]: WBC [3.7-10.4 K/CMM] 5.5 K/CMM (04/06/18 4:32 AM) RBC [4.20-5.40 3.35 M/CMM M/CMM] *LOW* (04/06/18 4:32 AM) Hgb [12.0-16.0 g/dL] 11.0 g/dL *LOW* (04/06/18 4:32 AM) Hct [36.0-48.0 %] 33.0 % *LOW* (04/06/18 4:32 AM) MCV [80.0-98.0 fL] 98.3 fL *HI* (04/06/18 4:32 AM) MCH [27.0-31.0 pg] 32.7 pg *HI* (04/06/18 4:32 AM) MCHC [32.0-36.0 33.3 g/dL g/dL] (04/06/18 4:32 AM) RDW [11.5-14.5 %] 14.5 % (04/06/18 4:32 AM) MPV [7.4-10.4 fL] 9.3 fL (04/06/18 4:32 AM) Platelet [133-450 142 K/CMM K/CMM] (04/06/18 4:32 AM) Segs [45.0-75.0 %] 57.6 % (04/06/18 4:32 AM) Lymphocytes 29.3 % [20.0-40.0 %] (04/06/18 4:32 AM) Monocytes [2.0-12.0 9.5 % %] (04/06/18 4:32 AM) Eosinophils [0.0-4.0 2.6 % %] (04/06/18 4:32 AM) Basophils [0.0-1.0 1.0 % %] (04/06/18 4:32 AM) Neutrophils # 3.2 K/CMM [1.5-8.1 K/CMM] (04/06/18 4:32 AM) Lymphocytes # 1.6 K/CMM [1.0-5.5 K/CMM] (04/06/18 4:32 AM) Monocytes # [0.0-0.8 0.5 K/CMM K/CMM] (04/06/18 4:32 AM) Eosinophils # 0.1 K/CMM [0.0-0.5 K/CMM] (04/06/18 4:32 AM) Basophils # [0.0-0.2 0.1 K/CMM K/CMM] (04/06/18 4:32 AM) Microbiology Reports TEST: Culture: Urine STATUS: Auth (Verified) BODY SITE: SOURCE: Urine, Clean Catch COLLECTED DATE/TIME: 04/06/18 5:26 AM FINAL REPORT 10,000 - 50,000 CFU/mL Skin Funmi Immunizations No data available for this section Procedures Procedure Date Related Diagnosis Body Site Status CABG x 3 - Coronary artery bypass grafts x 3 07/22/14 Completed Social History Social History Type Response Alcohol Never Smoking Status Former smoker; Concerns about tobacco use in household: No; Exposure to Tobacco Smoke None; Cigarette Smoking Last 365 Days No; Reg Smoking Cessation Counseling No entered on: 04/06/18 Assessment and Plan No data available for this section
--- OUTSIDE RECORDS SUMMARY | 2018-11-15 11:02 | XMS REPORT | Summary of Care ---
Author Author [facility] Organization [facility] Address Unknown Phone Unavailable Encounter HQ Meri(FIN) [id number] Date(s): 03/01/18 - 03/02/18 [facility] [address] [place] [address]- [facility] [phone] Encounter Diagnosis UTI (urinary tract infection) (Discharge Diagnosis) - 03/02/18 Discharge Disposition: Home or Self Care Attending Physician: Darryl Pacheco MD Vital Signs 1 2 3 Most recent to oldest [Reference Range]: 157.48 cm (03/01/18 6:04 PM) Height 98.0 DegF (03/02/18 1:35 AM) 98.1 DegF (03/01/18 10:53 PM) 98 DegF (03/01/18 6:04 PM) Temperature Oral [96.4-99.1 DegF] 139/71 mmHg (03/02/18 1:35 AM) 142/68 mmHg *HI* (03/02/18 12:08 AM) 161/63 mmHg *HI* (03/01/18 11:01 PM) Blood Pressure [90-140/60-90 mmHg] 19 BRMIN (03/02/18 1:35 AM) 17 BRMIN (03/02/18 12:08 AM) 14 BRMIN (03/01/18 11:01 PM) Respiratory Rate [14-20 BRMIN] 66 bpm (03/01/18 6:04 PM) Peripheral Pulse Rate [60-100 bpm] 54 kg (03/01/18 6:04 PM) Weight 21.77 m2 (03/01/18 6:04 PM) Body Mass Index Problem List Condition Effective Dates Status Health Status Informant Coronary artery Resolved disease(Confirmed) HTN Resolved (hypertension)(Confi rmed) Allergies, Adverse Reactions, Alerts Substance Reaction Severity Status NKDA Active Medications famotidine 20 mg, 2 mL, Route: IVP, Drug form: INJ, ONCE, Dosing Weight 54, kg, Priority: S TAT, Start date: 03/01/18 22:19:00 CDT, Stop date: 03/01/18 22:19:00 CDT Notes: (Same as: Pepcid)Can be dilute in 5-10cc NS IVP: Slow IV push over at le ast 2 minutes. Start Date: 03/01/18 Stop Date: 03/01/18 Status: Completed Keflex 750 mg oral capsule 750 mg=1 cap, PO, Q12H, X 10 day, # 20 cap, 0 Refill(s) Start Date: 03/02/18 Stop Date: 03/12/18 Status: Ordered morphine Sulfate 4 mg, 1 mL, Route: IVP, Drug form: SOLN, ONCE, Dosing Weight 54, kg, Priority: S TAT, Start date: 03/01/18 22:19:00 CDT, Stop date: 03/01/18 22:19:00 CDT Notes: (Same as:MORPhine Sulfate) Start Date: 03/01/18 Stop Date: 03/01/18 Status: Completed ondansetron 4 mg, 2 mL, Route: IVP, Drug form: INJ, ONCE, Dosing Weight 54, kg, Priority: ST AT, Start date: 03/01/18 22:19:00 CDT, Stop date: 03/01/18 22:19:00 CDT Notes: (Same as: Zofran) MEDICATION WASTE Product Size: 4 mgProduct Was nabil: ___ mg Start Date: 03/01/18 Stop Date: 03/01/18 Status: Completed Saline Flush 0.9% 10 mL, Route: IVP, Drug Form: INJ, Dosing Weight 54, kg, PRN, PRN Line Flush, St art date: 03/01/18 22:19:00 CDT, Duration: 30 day, Stop date: 03/31/18 22:18:00 CDT Notes: (Same as: BD Posiflush) Start Date: 03/01/18 Stop Date: 03/02/18 Status: Discontinued Results ELECTROLYTES Most recent to 1 oldest [Reference Range]: Sodium Lvl [135-145 140 mEq/L mEq/L] (03/01/18 10:47 PM) Potassium Lvl 4.1 mEq/L [3.5-5.1 mEq/L] (03/01/18 10:47 PM) Chloride Lvl [95-109 103 mEq/L mEq/L] (03/01/18 10:47 PM) CO2 [24-32 mEq/L] 26 mEq/L (03/01/18 10:47 PM) AGAP [10.0-20.0 15.1 mEq/L mEq/L] (03/01/18 10:47 PM) CHEM PANEL Most recent to 1 oldest [Reference Range]: Creatinine Lvl 1.31 mg/dL [0.50-1.40 mg/dL] (03/01/18 10:47 PM) eGFR 36 mL/min/1.73m2 1 *NA* (03/01/18 10:47 PM) BUN [7-22 mg/dL] 24 mg/dL *HI* (03/01/18 10:47 PM) B/C Ratio [6-25] 18 (03/01/18 10:47 PM) Glucose Lvl [70-99 107 mg/dL mg/dL] *HI* (03/01/18 10:47 PM) Total Protein 8.5 g/dL [6.4-8.4 g/dL] *HI* (03/01/18 10:47 PM) Albumin Lvl [3.5-5.0 4.0 g/dL g/dL] (03/01/18 10:47 PM) Globulin [2.7-4.2 4.5 g/dL g/dL] *HI* (03/01/18 10:47 PM) A/G Ratio [0.7-1.6] 0.9 (03/01/18 10:47 PM) Calcium Lvl 9.6 mg/dL [8.5-10.5 mg/dL] (03/01/18 10:47 PM) ALT [0-65 unit/L] 20 unit/L (03/01/18 10:47 PM) AST [0-37 unit/L] 23 unit/L (03/01/18 10:47 PM) Alk Phos [39-136 71 unit/L unit/L] (03/01/18 10:47 PM) Bili Total [0.2-1.3 0.7 mg/dL mg/dL] (03/01/18 10:47 PM) Lipase Lvl [73-393 105 unit/L unit/L] (03/01/18 10:47 PM) 1Result Comment: The eGFR is calculated using [...] 1 oldest [Reference Range]: Total CK [12-191 132 unit/L unit/L] (03/01/18 10:47 PM) CK MB [0.5-3.6 1.3 ng/mL ng/mL] (03/01/18 10:47 PM) CK MB Index 1.0 [0.0-2.5] (03/01/18 10:47 PM) Troponin-I 0.19 ng/mL [0.00-0.40 ng/mL] (03/01/18 10:47 PM) URINE AND STOOL Most recent to 1 oldest [Reference Range]: UA Turbidity [Clear] Clear (03/02/18 12:43 AM) UA Color [Yellow] Yellow *NA* (03/02/18 12:43 AM) UA pH [5.0-8.0] 6.0 (03/02/18 12:43 AM) UA Spec Grav 1.053 [<=1.030] *HI* (03/02/18 12:43 AM) UA Glucose [Negative Negative mg/dL mg/dL] *NA* (03/02/18 12:43 AM) UA Blood [Negative] Negative (03/02/18 12:43 AM) UA Ketones [Negative Negative mg/dL mg/dL] *NA* (03/02/18 12:43 AM) UA Protein [Negative Negative mg/dL mg/dL] (03/02/18 12:43 AM) UA Urobilinogen <=1.0 mg/dL [0.1-1.0 mg/dL] *NA* (03/02/18 12:43 AM) UA Bili [Negative] Negative *NA* (03/02/18 12:43 AM) UA Leuk Est Trace [Negative] *ABN* (03/02/18 12:43 AM) UA Nitrite Negative [Negative] (03/02/18 12:43 AM) UA WBC [0-5 /HPF] 2 /HPF (03/02/18 12:43 AM) UA RBC [0-2 /HPF] 5 /HPF *HI* (03/02/18 12:43 AM) UA Sq Epi [Few /LPF] Few /LPF *NA* (03/02/18 12:43 AM) UA Mucus [None Seen Few /LPF /LPF] *NA* (03/02/18 12:43 AM) HEMATOLOGY Most recent to 1 oldest [Reference Range]: WBC [3.7-10.4 K/CMM] 10.0 K/CMM (03/01/18 10:47 PM) RBC [4.20-5.40 3.93 M/CMM M/CMM] *LOW* (03/01/18 10:47 PM) Hgb [12.0-16.0 g/dL] 13.2 g/dL (03/01/18 10:47 PM) Hct [36.0-48.0 %] 37.8 % (03/01/18 10:47 PM) MCV [80.0-98.0 fL] 96.1 fL (03/01/18 10:47 PM) MCH [27.0-31.0 pg] 33.5 pg *HI* (03/01/18 10:47 PM) MCHC [32.0-36.0 34.8 g/dL g/dL] (03/01/18 10:47 PM) RDW [11.5-14.5 %] 14.3 % (03/01/18 10:47 PM) MPV [7.4-10.4 fL] 9.9 fL (03/01/18 10:47 PM) Platelet [133-450 142 K/CMM K/CMM] (03/01/18 10:47 PM) Segs [45.0-75.0 %] 59.6 % (03/01/18 10:47 PM) Lymphocytes 33.9 % [20.0-40.0 %] (03/01/18 10:47 PM) Monocytes [2.0-12.0 4.9 % %] (03/01/18 10:47 PM) Eosinophils [0.0-4.0 0.2 % %] (03/01/18 10:47 PM) Basophils [0.0-1.0 1.4 % %] *HI* (03/01/18 10:47 PM) Segs-Bands # 6.0 K/CMM [1.5-8.1 K/CMM] (03/01/18 10:47 PM) Lymphocytes # 3.4 K/CMM [1.0-5.5 K/CMM] (03/01/18 10:47 PM) Monocytes # [0.0-0.8 0.5 K/CMM K/CMM] (03/01/18 10:47 PM) Basophils # [0.0-0.2 0.1 K/CMM K/CMM] (03/01/18 10:47 PM) Microbiology Reports TEST: Culture: Urine STATUS: Auth (Verified) BODY SITE: SOURCE: Urine, Clean Catch COLLECTED DATE/TIME: 03/02/18 12:43 AM FINAL REPORT 10,000 - 50,000 CFU/mL [...] Reg Smoking Cessation Counseling No entered on: 03/01/18 Assessment and Plan No data available for this section
--- OUTSIDE RECORDS SUMMARY | 2018-11-15 11:02 | XMS REPORT | Summary of Care ---
Author Organization Unknown Address Unknown Phone Unavailable Encounter HQ Meri(DANTE) [id number] Date(s): 07/30/14 - 07/31/14 [facility] [address] [address] [address] - [facility] Discharge Disposition: Home Physician Attending: Harley Bullock MD Physician Admitting: Harley Bullock MD Reason for Visit SYNCOPE, R/O SEIZURE Vital Signs 1 2 3 Most recent to oldest [Reference Range]: 154.94 cm (07/30/14 8:00 PM) 152.4 cm (07/30/14 12:16 PM) Height 97.9 DegF (07/31/14 8:00 PM) 99.0 DegF (07/31/14 3:38 PM) 98.2 DegF (07/31/14 4:00 AM) Temperature Oral [96.4-99.1 DegF] 103 mmHg (07/31/14 8:00 PM) 123 mmHg (07/31/14 3:38 PM) 127 mmHg (07/31/14 2:00 PM) Systolic Blood Pressure [90-140 mmHg] 59 mmHg *LOW* (07/31/14 8:00 PM) 73 mmHg (07/31/14 3:38 PM) 54 mmHg *LOW* (07/31/14 2:00 PM) Diastolic Blood Pressure [60-90 mmHg] 18 BRMIN (07/31/14 8:00 PM) 18 BRMIN (07/31/14 3:38 PM) 15 BRMIN (07/31/14 2:00 PM) Respiratory Rate [14-20 BRMIN] 86 bpm (07/31/14 8:00 PM) 75 bpm (07/30/14 12:16 PM) Peripheral Pulse Rate [60-100 bpm] 51.7 kg (07/30/14 8:00 PM) 51.364 kg (07/30/14 12:16 PM) Weight 21.54 m2 (07/30/14 8:00 PM) 22.12 m2 (07/30/14 12:16 PM) Body Mass Index Problem List Condition Effective Dates Status Health Status Informant Coronary artery Resolved disease(Confirmed) HTN Resolved (hypertension)(Confi rmed) Allergies, Adverse Reactions, Alerts Substance Reaction Severity Status NKDA Active Medications alendronate 70 mg oral tablet 70 mg=1 tab, PO, QMon Start Date: 07/30/14 Status: Ordered aspirin 81 mg tablet, enteric coated 81 mg=1 tab, PO, Daily Start Date: 07/30/14 Status: Ordered aspirin 81 mg tablet, enteric coated 81 mg, 1 tab, Route: PO, Drug form: ECTAB, Daily, Dosing Weight 51.364, kg, Star t date: 07/31/14 9:00:00, Duration: 30 day, Stop date: 08/29/14 9:00:00 Notes: Do not crush or chew.(Same As: Ecotrin) Start Date: 07/31/14 Stop Date: 07/31/14 Status: Discontinued Cipro 500 mg oral tablet 500 mg=1 tab, PO, Q12H, # 14 tab, 0 Refill(s) Start Date: 07/31/14 Stop Date: 08/07/14 Status: Ordered lisinopril 5 mg, 1 tab, Route: PO, Drug form: TAB, Daily, Dosing Weight 51.364, kg, Start d ate: 07/31/14 9:00:00, Duration: 30 day, Stop date: 08/29/14 9:00:00 Notes: (Same as: Prinivlynn Zestril) Start Date: 07/31/14 Stop Date: 07/31/14 Status: Discontinued lisinopril 5 mg oral tablet 5 mg=1 tab, PO, Daily Start Date: 07/30/14 Stop Date: 07/31/14 Status: Discontinued metoprolol tartrate 25 mg, 1 tab, Route: PO, Drug form: TAB, Q12H, Dosing Weight 51.364, kg, Start d ate: 07/30/14 21:00:00, Duration: 30 day, Stop date: 08/29/14 9:00:00 Notes: (Same as: Lopressor) Start Date: 07/30/14 Stop Date: 07/31/14 Status: Discontinued metoprolol tartrate 25 mg oral tablet 25 mg=1 tab, PO, Q12H Start Date: 07/30/14 Stop Date: 07/31/14 Status: Discontinued Rocephin 1 gm, Route: IVPB, Drug form: PDR/INJ, ONCE, Dosing Weight 51.364, kg, Priority: STAT, Start date: 07/30/14 15:03:00, Stop date: 07/30/14 15:03:00 Start Date: 07/30/14 Stop Date: 07/30/14 Status: Completed Rocephin + Sodium Chloride 0.9% IV 100 mL 1 gm, Route: IVPB, [id number], Dosing Weight 51.364, kg, Start date: 07/30/14 22:00 :00, Duration: 30 day, Stop date: 08/28/14 22:00:00 Notes: (Same As: Rocephin). Use with 100ml NS mini-bag PLUS and infuse over 30 min Start Date: 07/30/14 Stop Date: 07/31/14 Status: Discontinued Saline Flush 0.9% 10 mL, Route: IVP, Drug Form: INJ, Dosing Weight 51.364, kg, PRN, PRN Line Flush , Start date: 07/30/14 13:07:00, Duration: 30 day, Stop date: 08/29/14 13:06:00 Notes: Same as: BD Posiflush Sterile Start Date: 07/30/14 Stop Date: 07/31/14 Status: Discontinued simvastatin 40 mg, 1 tab, Route: PO, Drug form: TAB, Bedtime, Dosing Weight 51.364, kg, Star t date: 07/30/14 21:00:00, Duration: 30 day, Stop date: 08/28/14 21:00:00 Notes: (Same as: Zocor) Start Date: 07/30/14 Stop Date: 07/31/14 Status: Discontinued simvastatin 40 mg oral tablet 40 mg=1 tab, PO, Bedtime Start Date: 07/30/14 Status: Ordered tramadol 50 mg oral tablet 50 mg=1 tab, PO, Q6H, as needed for pain Start Date: 07/30/14 Status: Ordered tramadol 50 mg oral tablet 50 mg, 1 tab, Route: PO, Drug form: TAB, Q6H, Dosing Weight 51.364, kg, PRN Pain Score 1-5, Start date: 07/30/14 19:06:00, Stop date: 08/29/14 19:05:00 Notes: Not to exceed 400mg/day. (Same As: Ultram) Start Date: 07/30/14 Stop Date: 07/31/14 Status: Discontinued Results ELECTROLYTES Most recent to 1 2 oldest [Reference Range]: Sodium Lvl [135-145 140 mEq/L 138 mEq/L mEq/L] (07/31/14 6:50 AM) (07/30/14 12:45 PM) Potassium Lvl 3.9 mEq/L 3.7 mEq/L [3.5-5.1 mEq/L] (07/31/14 6:50 AM) (07/30/14 12:45 PM) Chloride Lvl [95-109 105 mEq/L 103 mEq/L mEq/L] (07/31/14 6:50 AM) (07/30/14 12:45 PM) CO2 [24-32 mEq/L] 29 mEq/L 29 mEq/L (07/31/14 6:50 AM) (07/30/14 12:45 PM) AGAP [10.0-20.0 9.9 mEq/L 9.7 mEq/L mEq/L] *LOW* *LOW* (07/31/14 6:50 AM) (07/30/14 12:45 PM) CHEM PANEL Most recent to 1 2 oldest [Reference Range]: Creatinine Lvl 0.9 mg/dL 1.1 mg/dL [0.5-1.4 mg/dL] (07/31/14 6:50 AM) (07/30/14 12:45 PM) eGFR 59 mL/min/1.73m2 1 46 mL/min/1.73m2 2 *NA* *NA* (07/31/14 6:50 AM) (07/30/14 12:45 PM) BUN [7-22 mg/dL] 18 mg/dL 20 mg/dL (07/31/14 6:50 AM) (07/30/14 12:45 PM) Glucose Lvl [70-99 98 mg/dL 3 162 mg/dL 4 mg/dL] (07/31/14 6:50 AM) *HI* (07/30/14 12:45 PM) Calcium Lvl 7.9 mg/dL 8.3 mg/dL [8.5-10.5 mg/dL] *LOW* *LOW* (07/31/14 6:50 AM) (07/30/14 12:45 PM) 1Result Comment: The eGFR is calculated [...] be mul tiplied by the estimated BMI. 2Result Comment: The eGFR is calculated using [...] be mul tiplied by the estimated BMI. 3Interpretive Data: Adult reference range values reflect the clinical guidelines of the [employer]. 4Interpretive Data: Adult reference range values reflect the clinical guidelines of the [employer] [employer]. CARDIAC ENZYMES Most recent to 1 2 oldest [Reference Range]: CK MB [0.5-3.6 2.2 ng/mL ng/mL] (07/30/14 12:45 PM) Troponin-I 2.77 ng/mL 5 [0.00-0.40 ng/mL] *CRIT* (07/30/14 12:45 PM) 5Result Comment: Critical Result(s) called to patric at 07/30/2014 13:39 bynm. Read back OK. URINE AND STOOL Most recent to 1 2 oldest [Reference Range]: UA Turbidity [Clear] Marked *ABN* (07/30/14 1:17 PM) UA Color [Yellow] Yellow *NA* (07/30/14 1:17 PM) UA pH [5.0-8.0] 6.0 (07/30/14 1:17 PM) UA Spec Grav 1.012 [<=1.030] (07/30/14 1:17 PM) UA Glucose [Negative Negative mg/dL mg/dL] *NA* (07/30/14 1:17 PM) UA Blood [Negative] Negative (07/30/14 1:17 PM) UA Ketones [Negative 20 mg/dL mg/dL] *ABN* (07/30/14 1:17 PM) UA Protein [Negative Negative mg/dL mg/dL] (07/30/14 1:17 PM) UA Urobilinogen 4.0 mg/dL [0.1-1.0 mg/dL] *HI* (07/30/14 1:17 PM) UA Bili [Negative] Negative *NA* (07/30/14 1:17 PM) UA Leuk Est Moderate [Negative] *ABN* (07/30/14 1:17 PM) UA Nitrite Negative [Negative] (07/30/14 1:17 PM) UA WBC [0-5 /HPF] 18 /HPF *HI* (07/30/14 1:17 PM) UA RBC [0-2 /HPF] 3 /HPF *HI* (07/30/14 1:17 PM) UA Bacteria [None Occasional /HPF Seen /HPF] *NA* (07/30/14 1:17 PM) UA Sq Epi [Few /LPF] Many /LPF *ABN* (07/30/14 1:17 PM) HEMATOLOGY Most recent to 1 2 oldest [Reference Range]: WBC [3.7-10.4 K/CMM] 8.3 K/CMM 8.0 K/CMM (07/31/14 6:50 AM) (07/30/14 12:45 PM) RBC [4.20-5.40 2.89 M/CMM 3.07 M/CMM M/CMM] *LOW* *LOW* (07/31/14 6:50 AM) (07/30/14 12:45 PM) Hgb [12.0-16.0 g/dL] 9.2 g/dL 9.8 g/dL *LOW* *LOW* (07/31/14 6:50 AM) (07/30/14 12:45 PM) Hct [36.0-48.0 %] 27.4 % 29.3 % *LOW* *LOW* (07/31/14 6:50 AM) (07/30/14 12:45 PM) MCV [80.0-98.0 fL] 95.1 fL 95.2 fL (07/31/14 6:50 AM) (07/30/14 12:45 PM) MCH [27.0-31.0 pg] 31.8 pg 31.8 pg *HI* *HI* (07/31/14 6:50 AM) (07/30/14 12:45 PM) MCHC [32.0-36.0 33.5 g/dL 33.4 g/dL g/dL] (07/31/14 6:50 AM) (07/30/14 12:45 PM) RDW [11.5-14.5 %] 14.7 % 14.6 % *HI* *HI* (07/31/14 6:50 AM) (07/30/14 12:45 PM) Platelet [133-450 277 K/CMM 271 K/CMM K/CMM] (07/31/14 6:50 AM) (07/30/14 12:45 PM) MPV [7.4-10.4 fL] 8.1 fL 8.7 fL (07/31/14 6:50 AM) (07/30/14 12:45 PM) Segs [45.0-75.0 %] 64.8 % 74.3 % (07/31/14 6:50 AM) (07/30/14 12:45 PM) Lymphocytes 23.4 % 15.8 % [20.0-40.0 %] (07/31/14 6:50 AM) *LOW* (07/30/14 12:45 PM) Monocytes [2.0-12.0 9.2 % 8.9 % %] (07/31/14 6:50 AM) (07/30/14 12:45 PM) Eosinophils [0.0-4.0 1.9 % 0.5 % %] (07/31/14 6:50 AM) (07/30/14 12:45 PM) Basophils [0.0-1.0 0.7 % 0.5 % %] (07/31/14 6:50 AM) (07/30/14 12:45 PM) Segs-Bands # 5.4 K/CMM 6.0 K/CMM [1.5-8.1 K/CMM] (07/31/14 6:50 AM) (07/30/14 12:45 PM) Lymphocytes # 1.9 K/CMM 1.3 K/CMM [1.0-5.5 K/CMM] (07/31/14 6:50 AM) (07/30/14 12:45 PM) Monocytes # [0.0-0.8 0.8 K/CMM 0.7 K/CMM K/CMM] (07/31/14 6:50 AM) (07/30/14 12:45 PM) Eosinophils # 0.2 K/CMM [0.0-0.5 K/CMM] (07/31/14 6:50 AM) Basophils # [0.0-0.2 0.1 K/CMM K/CMM] (07/31/14 6:50 AM) PT [12.0-14.7 14.1 seconds seconds] (07/30/14 12:45 PM) INR [0.85-1.17] 1.08 6 (07/30/14 12:45 PM) D-Dimer 3.92 ug/mL FEU 7 *NA* (07/30/14 12:45 PM) PTT [22.9-35.8 29.2 seconds 8 seconds] (07/30/14 12:45 PM) 6Interpretive Data: RECOMMENDED RANGES FOR PROTIME INR: 2.0-3.0 for most medical and surgical thromboembolic states. 2.5-3.5 for artificial heart valves and recurrent embolism. INR SHOULD BE USED ONLY FOR PATIENTS ON STABLE ANTICOAGULANT THERAPY. 7Interpretive Data: In DIC, quantitative D-Dimer is generally greater than 0.66 ug/mL FEU. Values of quantitative D-Dimer less than 0.40 ug/mL FEU have been reported to be associated with a low probability of deep vein thrombosis/pulmonary embolism. This test alone should not be used to rule out DVT/PE. 8Interpretive Data: Heparin Therapeutic Range: 57 - 92 Seconds Medications Administered During Your Visit No data available for this section Immunizations No data available for this section Procedures Procedure Type Body Site Date of Procedure Related Diagnosis CABG x 3 - Coronary 07/22/14 12:00 AM artery bypass grafts x 3 Social History Social History Type Response Alcohol Use: Never Smoking Status Never smoker, Exposure to Tobacco Smoke None, Cigarette Smoking Last 365 Days No, Reg Smoking Cessation Counseling No Assessment and Plan Extracted from: Title: Clinical Document Author: Divya Quigley Date: 07/31/14 [facility] Internal [facility] Progress Note [facility] SUBJECTIVE No acute events. Pt denies VALE, dizziness, dysphagia, neck stiffness, CP, SOB, hemoptysis, N/V/D/C, hematemesis, hematochezia, hematuria, dysuria, skin rash. Pt feeling better, denies Sx return OBJECTIVE Vital Signs (last 24 hrs) Last Charted Minimum Maximum Temp99.0 (JUL 31:)97.7 (JUL 31 00:00)99.0 (JUL 31:) Heart Rate82 (JUL 31:)70 (JUL 31 09:00)H 132 (JUL 30 18:45) Resp Rate 18 (JUL 31:)L 13 (JUL 31 06:00)H 26 (JUL 30 20:00) IOU959 (JUL 31:)92 (JUL 31 10:00)H 159 (JUL 30 21:00) DBP73 (JUL 31:)L 44 (JUL 30 17:52)H 95 (JUL 31 08:00) Ygoulp91.7 (JUL 30:) Ipadah266.94 (JUL 30 20:00) BMI21.54 (JUL 30 20:00) Labs (Last four charted values) WBC 8.3(JUL 31)8.0(JUL 30) Hgb L 9.2(JUL 31)L 9.8(JUL 30) Hct L 27.4(JUL 31)L 29.3(JUL 30) Plt 277(JUL 31)271(JUL 30) Na 140(JUL 31)138(JUL 30) K 3.9(JUL 31)3.7(JUL 30) CO2 29(JUL 31)29(JUL 30) Cl 105(JUL 31)103(JUL 30) Cr 0.9(JUL 31)1.1(JUL 30) BUN 18(JUL 31)20(JUL 30) Glucose Random 98(JUL 31)H 162(JUL 30) Ca L 7.9(JUL 31)L 8.3(JUL 30) PT 14.1(JUL 30) INR 1.08(JUL 30) PTT 29.2(JUL 30) Troponin C 2.77(JUL 30) CK MB 2.2(JUL 30) Scheduled Meds (4):alendronate (Fosamax), aspirin (aspirin 81 mg tablet, enteric coated), cefTRIAXone + Sodium Chloride 0.9% IV 100 mL (Rocephin + Sodium Chloride 0.9% IV 100 mL), simvastatin Unscheduled Meds: None PRN Meds (2):sodium chloride (Saline Flush 0.9%), tramadol (tramadol 50 mg oral tablet) One Time Meds (1):(Completed) cefTRIAXone (Rocephin) Continuous Infusions: None Physical Exam Gen: Pt resting comfortably, A&Ox3, NAD HEENT: PERRLA, EOMI, normocephalic, atraumatic, no thyromegaly, no neck stiffness Chest: RRR, no M/R/G, CTAB, no rhonchi wheezes or rales Abd: Bowel sounds present in 4 quads, soft, ND, NTTP Ext: No cyanosis or edema Skin: No rash noted ASSESSMENT & PLAN 1. Syncope. 2. Urinary tract infection. 3. Coronary artery disease status post bypass graft. 4. Hypertension 5. Hyperlipidemia. Syncopal episode possibly 2/2 orthostatic hypotension from new HTN meds post- surg. Will hold them for now 2/2 hypotension and low HR. Pt should be seen by her international relations professor tmw or Monday to have meds adjusted if necessary. H/H decreased today, which is not unexpected. F/U with PCP to follow CBC. PO abx for UTI. Ok to d/c home.
--- OUTSIDE RECORDS SUMMARY | 2018-11-15 11:02 | XMS REPORT | Summary of Care ---
Author Author [facility] [place] Organization [facility] [place] Address Unknown Phone Unavailable Encounter HQ Sindhu_lolly(FIN) [id number] Date(s): 04/06/16 - 04/06/16 [facility] [place] [address] [phone] Discharge Disposition: Home or Self Care Attending Physician: Dudley Nelson MD Vital Signs No data available for this section Problem List Condition Effective Dates Status Health Status Informant Coronary artery Resolved disease(Confirmed) HTN Resolved (hypertension)(Confi rmed) Allergies, Adverse Reactions, Alerts Substance Reaction Severity Status NKDA Active Medications No data available for this section Results No data available for this section Immunizations No data available for this section Procedures Procedure Date Related Diagnosis Body Site CABG x 3 - Coronary artery bypass grafts x 3 07/22/14 Social History Social History Type Response Alcohol Never Smoking Status Never smoker; Exposure to Tobacco Smoke None; Cigarette Smoking Last 365 Days No; Reg Smoking Cessation Counseling No Assessment and Plan No data available for this section
[2018-11-15] MEDS ORDERED: ONDANSETRON HCL INJ 2MG/ML 2ML 2 MG/ML VIAL IV PRN (11:45)
[2018-11-15] MEDS ORDERED: SODIUM CHLORIDE FLUSH 10 ML SYR INJ PRN (11:45)
[2018-11-15 12:32] LABS: INR 1.01; PROTHROMBIN TIME 13.8 seconds (11.9-14.5)
[2018-11-15 12:33] LABS: PARTIAL THROMBOPLASTIN TIME 27.5 seconds (23.8-35.5)
--- NOTE | 2018-11-15 14:54 | Diagnostic Imaging Report ---
Exam: Left shoulder series; 2 views dated 11/15/2018 at 12:38 PM History: Status post fall Comparison: None available Findings: Mildly displaced humeral head fracture. Fracture line does not extend into the joint space. Minimal calcification within the rotator cuff region. Impression: Humeral head fracture. Signed by: Dr. Darrius Baltazar DO on 11/15/2018 2:50 PM
--- NOTE | 2018-11-15 17:06 | NUR ---
Recvd patient from ER, AAOx2-3, grand daughter with her, assisted her to bed, sling on in left arm, bruises on left arm, resp even and unlabored, denies any SOB or chest pain, no distress noted, call light in reach, denies any pain this time. side rails X2 up, bed alarm ON
[2018-11-15 17:10] VITALS: BP 152/68
[2018-11-15 17:17] VITALS: BP 141/66
[2018-11-15] MEDS ORDERED: MORPHINE SULFATE INJ 4 MG/ML INJ 1ML IV PRN ×2 (18:30→18:45)
--- NOTE | 2018-11-15 19:00 | NUR ---
received report from day nurse. patient is resting in bed. bed is in lowest position and call talavera is within reach. will continue to monitor patient.
[2018-11-15 20:00] VITALS: BP_SYST 161; BP_SYST 167; BP_DIAS 76; BP_DIAS 78
--- NOTE | 2018-11-15 20:00 | NUR ---
patients blood pressure is 167/78. TWISTER FRAME TENDER notified. received new orders for blood pressure medication. also notified TWISTER FRAME TENDER about family members request to have seroquel 25mg restarted. TWISTER FRAME TENDER agreed to have this medication restarted.
[2018-11-15] MEDS: HYDRALAZINE HCL 20 MG/ML VIAL IV PRN (21:56)
[2018-11-15] MEDS: QUETIAPINE FUMARATE 25 MG TAB PO SCH (21:56)
[2018-11-15] MEDS: TRAMADOL HCL 50 MG TAB PO PRN (23:51)
[2018-11-16] VITALS (8 sets, daily range): BP systolic 124–155; BP diastolic 59–75
[2018-11-16] MEDS ORDERED: NAMENDA10 MG PO (04:36)
[2018-11-16] MEDS ORDERED: PLAVIX75 MG PO (04:36)
[2018-11-16] MEDS ORDERED: SEROQUEL25 MG PO (04:36)
[2018-11-16 05:14] LABS: BASOPHILS % 0.6 % (0.0-1.0); EOSINOPHILS # (AUTO) 0.2 (0.0-0.4); EOSINOPHILS % 2.4 % (0.0-6.0); HEMATOCRIT 30.1 % (34.2-44.1); HEMOGLOBIN 9.9 g/dL (12.0-16.0); LYMPHOCYTES # (AUTO) 1.8 (1.0-3.2); LYMPHOCYTES % 29.2 % (18.0-39.1); MEAN CORPUSCULAR HEMOGLOBIN 32.5 pg (28-32); MEAN CORPUSCULAR HGB CONC 32.9 g/dL (31-35); MEAN CORPUSCULAR VOLUME 98.7 fL (81-99); MONOCYTES # (AUTO) 0.6 (0.2-0.8); MONOCYTES % 8.7 % (4.4-11.3); NEUTROPHILS # (AUTO) 3.7 (2.1-6.9); NEUTROPHILS % 58.8 % (38.7-80.0); PLATELET COUNT 169 x10e3/uL (140-360); RED BLOOD COUNT 3.05 x10e6/uL (3.6-5.1); RED CELL DISTRIBUTION WIDTH 13.3 % (11.7-14.4)
[2018-11-16 05:42] LABS: ALBUMIN 3.2 g/dL (3.5-5.0); ALBUMIN/GLOBULIN RATIO 0.9 (0.8-2.0); ANION GAP 13.8 mmol/L (8-16); CALCIUM 8.8 mg/dL (8.4-10.2); CREATININE, SERUM 1.3 mg/dL (0.57-1.11); POTASSIUM 3.8 mmol/L (3.5-5.1)
--- NOTE | 2018-11-16 06:47 | NUR ---
report given to day nurse. patient is resting comfortably in bed. bed is in lowest position and call talavera is within reach.
[2018-11-16] MEDS: TRAMADOL HCL 50 MG TAB PO PRN ×2 (09:06→18:00)
--- NOTE | 2018-11-16 09:07 | NUR ---
patient refused morphine so tramadol given.
--- NOTE | 2018-11-16 16:12 | NUR ---
SOCIAL WORK INITIAL ASSESSMENT Director Of Assisted Living to bedside to discuss plan of care with patient/family. CM/SW role and care transitions discussed. Anticipated discharge plan discussed along with duration of care. CM/SW discussed patients right to make decisions in care. CM/SW work hours given. Patient lives: IN HOME WITH DAUGHTER NAY COLÓN [phone] POA Admit/Transfer: VIA DIRECT ADMIT FROM [facility] TO [facility] DAUGHTER STATES [facility] STATES WILL BE ABLE TO GO TO [facility], EDUCATED ABOUT LEVELS OF CARE POA/Emergency contact: MARGI JOHNSON NAY COLÓN Current/Previous Home Health: DAUGHTER IS PAID BY [employer] PROVIDER PCP/Follow-up Care: [facility] Current/Previous DME: NONE Other Services: NONE Employment Status: NONE Areas of Concerns: NONE Referral Needs: NONE Education Needs: LEVELS OF CARE IMM/CENTENO given and signed (if applicable): CENTENO Goal for discharge: POSSIBLE SNF CM/SW left business card at the bedside with contact information. Name and number was also written on the patients whiteboard. Patient verbalized understanding of discussion. CM will follow-up with ongoing discharge and transition of care needs.
--- NOTE | 2018-11-16 17:06 | NUR ---
patients daughter being very aggressive and accusatory toward nurse and [employer]AL[employer] ASSURANCE SUPERVISOR CHASSIS. states that we dont go in the room when we have been in several times each. unable to please her and have attempted to de-escalate several times.
--- NOTE | 2018-11-16 17:59 | NUR ---
Nutrition Screen Note RD Recommendation for Physician: -Continue cardiac diet as ordered Plan of Care: RD following, monitoring for tolerance and adequacy Nutrition reason for involvement: Nutrition Risk Trigger MST Primary Diagnose(s): closed left humeral fx PMH: no H&P in chart Ht: 59in Wt: 119lb BMI: 24kg/m2 IBW: 95lb RD Assessment: (11/16) Chart reviewed. Labs and meds reviewed. 87yo F, who was admitted for closed left humeral fx. 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 Pt denied chewing/swallowing problems and nausea/vomiting. 50-100% meal intake was recorded since admission. Will continue to monitor and follow. Current Diet: cardiac diet Malnutrition Evaluation (11/16) The patient does not meet criteria for a specified degree of malnutrition at this time. Will re-evaluate at follow-up as appropriate. Diet Education Needs Assessment: Diet education not indicated. Nutrition Care Level: low Signed: Bella Richardson, MS, RD, LD
--- NOTE | 2018-11-16 19:13 | NUR ---
Report received and walking rounds complete. Pt resting in bed and in no apparent distress. Safety measures ensured and daughter at bedside and to stay overnight.
--- NOTE | 2018-11-16 19:20 | Consultation ---
DATE OF CONSULTATION: 11/16/2018 CHIEF COMPLAINT: Left shoulder pain. HISTORY OF PRESENT ILLNESS: The patient is a medically frail 87-year-old lady, who fell approximately one week ago. She had left shoulder pain. She lives at home with her daughter. She was getting up in the middle of the night and may have caught her foot on a doorstep. She was taken to an urgent care facility. She was diagnosed with a left proximal humerus fracture. She was placed into a sling. She returned home. The patient has advanced dementia and lives with her daughter. All of the information obtained is from her daughter. The daughter stated that she cut the sling off and then complained of pain. The daughter was having quite significant trouble managing her mother at home. She was brought into the emergency room and admitted. PAST MEDICAL HISTORY: Please see admission H and P. SOCIAL HISTORY: She lives with her daughter. She previously ambulated independently. She does not smoke or drink. She has advanced dementia. PHYSICAL EXAMINATION: The patient is awake, but significantly confused. She cannot answer any questions about what happened. She is in a left arm sling. There was bruising around her left arm. She has pain with any attempted passive range of motion. She can move all of her digits in her left hand. She states she feels everything when I touch her. IMAGING: X-rays show a minimally displaced left proximal humerus fracture. This appears to be two or three parts. There is no CT scan. IMPRESSION: Three-part left proximal humerus fracture. PLAN: The patient is not a surgical candidate. The standard treatment is to immobilize this with a sling for approximately three weeks. At that time, we can hopefully initiate some physical therapy. The more pressing medical issue is her advanced dementia. This will come into play significantly on how she does. We would be happy to see her in the clinic in two or three weeks to repeat an x-ray and to assist in initiating physical therapy. All of this information was conveyed to the daughter. At this point, it seems like she needs retirement placement. Thank you for the consultation. Primo Doyle MD DR/JOE /[id number]
[2018-11-16] MEDS ORDERED: ASPIRIN 81 MG CHEW TAB PO SCH (20:15)
[2018-11-16] MEDS ORDERED: ACETAMINOPHEN/CODEINE 300MG - 30MG TAB PO PRN (20:15)
[2018-11-16] MEDS ORDERED: HYDROCODONE/APAP 5MG-325MG TAB PO PRN (20:45)
[2018-11-16] MEDS ORDERED: QUETIAPINE FUMARATE 25 MG TAB PO SCH (21:00)
[2018-11-16] MEDS ORDERED: CLOPIDOGREL BISULFATE 75 MG TAB PO SCH (21:00)
[2018-11-16] MEDS: DONEPEZIL HCL 5 MG TAB PO SCH (22:06)
[2018-11-16] MEDS: SIMVASTATIN 40 MG TAB PO SCH (22:06)
[2018-11-16] MEDS: QUETIAPINE FUMARATE 25 MG TAB PO SCH (22:54)
--- NOTE | 2018-11-16 22:56 | NUR ---
Pt given Seroquel 25mg due to pt daughter complaining that pt is wide awake and not able to sleep. Pt is visible awake and seems to be confused at times as well.
[2018-11-17 00:19] VITALS: BP 121/68
[2018-11-17 03:58] VITALS: BP 137/63
[2018-11-17 05:54] LABS: BASOPHILS % 0.5 % (0.0-1.0); EOSINOPHILS # (AUTO) 0.2 (0.0-0.4); EOSINOPHILS % 3.2 % (0.0-6.0); HEMATOCRIT 29.4 % (34.2-44.1); HEMOGLOBIN 9.5 g/dL (12.0-16.0); LYMPHOCYTES # (AUTO) 2.2 (1.0-3.2); LYMPHOCYTES % 35.2 % (18.0-39.1); MEAN CORPUSCULAR HEMOGLOBIN 32.6 pg (28-32); MEAN CORPUSCULAR HGB CONC 32.3 g/dL (31-35); MONOCYTES # (AUTO) 0.7 (0.2-0.8); MONOCYTES % 10.6 % (4.4-11.3); NEUTROPHILS # (AUTO) 3.2 (2.1-6.9); PLATELET COUNT 175 x10e3/uL (140-360); RED BLOOD COUNT 2.91 x10e6/uL (3.6-5.1); RED CELL DISTRIBUTION WIDTH 13.2 % (11.7-14.4)
[2018-11-17 06:16] LABS: ANION GAP 11.9 mmol/L (8-16); CALCIUM 9.2 mg/dL (8.4-10.2); CHOL/HDL RATIO 3.8 (3.0-3.6); CREATININE, SERUM 1.64 mg/dL (0.57-1.11); MAGNESIUM 2.2 MG/DL (1.3-2.1); PHOSPHORUS 4.1 MG/DL (2.3-4.7); POTASSIUM 3.9 mmol/L (3.5-5.1)
[2018-11-17 06:40] LABS: THYROID STIMULATING HORMONE 1.48 uIU/mL (0.350-4.940)
--- NOTE | 2018-11-17 07:27 | NUR ---
Report given and walking rounds complete. Pt resting in bed and in no distress, safety measures ensured.
[2018-11-17] MEDS: FAMOTIDINE 20 MG TAB PO SCH ×2 (07:30→17:09)
[2018-11-17 08:00] VITALS: BP 138/61
[2018-11-17] MEDS: TRAMADOL HCL 50 MG TAB PO PRN ×2 (08:00→23:57)
[2018-11-17] MEDS ORDERED: FUROSEMIDE 40 MG TAB PO SCH (09:00)
[2018-11-17] MEDS ORDERED: METOPROLOL TARTRATE 25 MG TAB PO SCH (09:00)
[2018-11-17] MEDS ORDERED: FUROSEMIDE 20 MG TAB PO SCH (09:00)
[2018-11-17] MEDS: ASPIRIN 81 MG CHEW TAB PO SCH (09:09)
[2018-11-17] MEDS: FERROUS SULFATE 325 MG TAB PO SCH (09:09)
[2018-11-17] MEDS: MEGESTROL ACETATE 40 MG TAB PO SCH ×2 (09:10→17:09)
[2018-11-17] MEDS: MEMANTINE 10 MG TAB PO SCH ×2 (09:10→17:09)
[2018-11-17] MEDS: METOPROLOL TARTRATE 50 MG TAB PO SCH (09:10)
[2018-11-17] MEDS: CLOPIDOGREL BISULFATE 75 MG TAB PO SCH (09:11)
--- NOTE | 2018-11-17 11:22 | NUR ---
Patient OOB to chair, ambulated with PT slow steady gait, arm sling in place to immobilize left shoulder, medicated for pain this morning, will monitor as daughter in room with patient.
[2018-11-17 12:00] VITALS: BP 117/68
--- NOTE | 2018-11-17 13:03 | NUR ---
Call to attending and left message regarding plan for patient and as per recommendation from Orthopedics and family's direction, looking at alf placement and then will see Ortho at the office in 2-3 weeks for possible rehab after x-rays to left shoulder. Communicated such information to patient.
[2018-11-17] MEDS ORDERED: SODIUM CHLORIDE 0.9% 1000ML 1,000 ML IV ONE (15:00)
--- NOTE | 2018-11-17 15:31 | NUR ---
Patient alert and rounds by attending Dr. Milian covering for Dr. Castro, orders in place for urinalysis, CT brain w/o and consult to Dr. Hudson and called at this time for metabolic encephalopathy.
--- NOTE | 2018-11-17 16:11 | NUR ---
Dr. Hudson states will see patient tomorrow.
--- NOTE | 2018-11-17 16:28 | Diagnostic Imaging Report ---
EXAMINATION: CHEST SINGLE (PORTABLE) COMPARISON: Chest x-ray 10/22/2017, shoulder x-rays 11/15/2018 INDICATION: Confusion ^Confusion ^[id number] ^1543 DISCUSSION: Frontal view of the chest obtained at 1543 hours. HEART AND MEDIASTINUM: Stable cardiomegaly and prominence of the right hilum which may be the result of pulmonary artery hypertension. LINES: Pacer/defibrillator wires terminate in the right atrium and right ventricle LUNGS: Diffuse hyperinflation consistent with COPD. Multiple calcified granulomata are redemonstrated. No pneumonia or pulmonary edema. PLEURA: No pleural effusion or pneumothorax. BONES AND SOFT TISSUES: Diffuse demineralization. Mildly displaced fracture of the left humeral neck is stable without evidence of healing. No new fractures. No glenohumeral dislocation. The soft tissues are normal. IMPRESSION: Stable cardiomegaly and prominent main pulmonary artery suggestive of pulmonary artery hypertension. Stable left humeral fracture without evidence of healing. Signed by: Dr. Roby Lu MD on 11/17/2018 4:24 PM
[2018-11-17 16:45] VITALS: BP 135/60
--- NOTE | 2018-11-17 17:32 | Diagnostic Imaging Report ---
Exam: Head CT without contrast History: Confusion Comparison studies: Head CT 10/22/2017 Technique: Axial images were obtained from the skull base to the vertex. Coronal and sagittal images reconstructed from the axial data. Dose modulation, iterative reconstruction, and/or weight based adjustment of the mA/kV was utilized to reduce the radiation dose to as low as reasonably achievable. Radiation dose: Total DLP: 921 mGy*cm. Estimated effective dose: DLP x 0.015 Intravenous contrast: None Findings: Scalp: No abnormalities. Bones: No fractures, blastic or lytic lesions. Brain sulci: Moderately prominent. Ventricles: Moderate compensatory dilatation. No hydrocephalus. Extra-axial spaces: No masses, no fluid collection. Parenchyma: No mass, acute hemorrhage or acute or chronic cortical infarcts. Confluent hypodensities in the supratentorial white matter are nonspecific but most compatible with chronic microvascular ischemic changes. Sellar/suprasellar region: No abnormalities. Craniocervical junction: Patent foramen magnum. No Chiari one malformation. Incidental findings: Bilateral lens replacements for previous cataract surgery. Atherosclerotic calcifications in the carotid siphons. IMPRESSION: No acute intracranial abnormalities. No changes from the prior head CT of 10/22/2017. Chronic findings: 1. Moderate generalized brain volume loss. 2. Moderate chronic microvascular ischemic changes. Signed by: Dr. Primo Armando M.D. on 11/17/2018 5:29 PM
--- NOTE | 2018-11-17 19:12 | NUR ---
Report received and walking rounds complete. Pt resting in bed and in no apparent distress. All safety measures ensured. Pt daughter at bedside and to stay overnight.
[2018-11-17 20:00] VITALS: BP 146/67
[2018-11-17] MEDS: QUETIAPINE FUMARATE 25 MG TAB PO SCH (21:43)
[2018-11-17] MEDS: DONEPEZIL HCL 5 MG TAB PO SCH (21:43)
[2018-11-17] MEDS: SIMVASTATIN 40 MG TAB PO SCH (21:43)
[2018-11-18] VITALS (8 sets, daily range): BP systolic 146–186; BP diastolic 68–79
--- NOTE | 2018-11-18 00:01 | Consultation ---
DATE OF CONSULTATION: Critical Care Consultation CHIEF COMPLAINT: Worsening confusion, fall, and humeral fracture. HISTORY OF PRESENT ILLNESS: The patient is an 87-year-old woman. She has a history of dementia and cardiac disease. About 10 days ago she fell and injured her arm. She went to an urgent care center and was found to have a humeral fracture. She was placed in a sling and given the prescription for physical therapy. She has been taking pain medications at home and has been more confused. She is still complaining of pain. She has been more disoriented. She is not urinating well. She has no nausea or vomiting. The family is unsure about fevers. PAST SURGICAL HISTORY: 1. Status post coronary artery bypass grafting. 2. Status post pacemaker. PAST MEDICAL HISTORY: 1. Organic brain syndrome. 2. Hypertension. 3. Cardiac disease. SOCIAL HISTORY: The patient lives with her daughter. She quit smoking many years ago. She is not a drinker. ALLERGIES: NO KNOWN DRUG ALLERGIES. REVIEW OF SYSTEMS: The patient is unsure about fevers. There is no report of headache. She has increased confusion. There is no report of chest pain. She is not having difficulty breathing. There is pain in the arm as a result of the fracture. She is not having any nausea or vomiting. She has no leg pain. PHYSICAL EXAMINATION: VITAL SIGNS: The patient is afebrile. The blood pressure is 117/68, pulse ox is 96%, pulse is 67, and the respiratory rate is 16. HEENT: Shows no facial swelling or erythema. NECK: Shows no stiffness or pain. CARDIAC: Reveals regular rate and rhythm with normal S1, S2. RESPIRATORY: Auscultation of lungs reveals clear breath sounds bilaterally. There is no wheezing. ABDOMEN: Soft and nontender. There is no rebound or guarding. EXTREMITIES: Shows a left arm fracture, in a sling. LABORATORY DATA: The creatinine is increased to 1.64 and the other electrolytes are within normal limits. The hemoglobin is 9.5 and the white blood cell count is 6.3, the platelet count is 175. PT and INR are normal. Radiograph of the shoulder shows a humeral head fracture. IMPRESSION: 1. Metabolic encephalopathy. 2. Acute kidney injury with increase in the creatinine from baseline of 1 to 1.6. 3. Hypertension. 4. History of cardiac disease. 5. Anemia, unspecified. PLAN: 1. The patient will have a CT scan of the head. 2. Hold pain medications and other medicines that may be contributing to encephalopathy. 3. Urinalysis and urine culture. 4. Chest x-ray to evaluate for pneumonia. 5. Hold Lasix and give gentle hydration. 6. Echocardiogram. MD NICK Sutherland/JOE /[id number]
[2018-11-18 05:06] LABS: BASOPHILS % 0.5 % (0.0-1.0); EOSINOPHILS # (AUTO) 0.1 (0.0-0.4); EOSINOPHILS % 1.1 % (0.0-6.0); HEMOGLOBIN 9.2 g/dL (12.0-16.0); LYMPHOCYTES # (AUTO) 2.1 (1.0-3.2); LYMPHOCYTES % 28.6 % (18.0-39.1); MEAN CORPUSCULAR HEMOGLOBIN 32.5 pg (28-32); MEAN CORPUSCULAR HGB CONC 30.7 g/dL (31-35); MONOCYTES # (AUTO) 0.8 (0.2-0.8); MONOCYTES % 10.6 % (4.4-11.3); NEUTROPHILS # (AUTO) 4.3 (2.1-6.9); NEUTROPHILS % 58.8 % (38.7-80.0); PLATELET COUNT 118 x10e3/uL (140-360); RED BLOOD COUNT 2.83 x10e6/uL (3.6-5.1); RED CELL DISTRIBUTION WIDTH 13.1 % (11.7-14.4)
[2018-11-18 05:31] LABS: ALANINE AMINOTRANSFERASE < 6 IU/L (0-55); ALBUMIN/GLOBULIN RATIO 0.9 (0.8-2.0); ALKALINE PHOSPHATASE 54 IU/L (40-150); BLOOD UREA NITROGEN 29 mg/dL (7-26); BUN/CREATININE RATIO 27 (6-25); CALCIUM 8.9 mg/dL (8.4-10.2); CARBON DIOXIDE 22 mmol/L (22-29); CHLORIDE 110 mmol/L (98-107); CREATININE, SERUM 1.06 mg/dL (0.57-1.11); EST GLOMERULAR FILTRATION RATE 49 ML/MIN (60-); GLUCOSE 99 mg/dL (74-118); SODIUM 139 mmol/L (136-145)
--- NOTE | 2018-11-18 06:40 | NUR ---
rounded with maintenance supervisor 2nd shift nurse, patient resting in bed and in no distress with daughter at bedside. Call talavera within reach and bed in lowest position.
[2018-11-18] MEDS: ASCORBIC ACID 500 MG TAB PO SCH ×2 (08:39→16:30)
[2018-11-18] MEDS: MEGESTROL ACETATE 40 MG TAB PO SCH ×2 (08:39→16:30)
[2018-11-18] MEDS: FERROUS SULFATE 325 MG TAB PO SCH (08:39)
[2018-11-18] MEDS: ASPIRIN 81 MG CHEW TAB PO SCH (08:39)
[2018-11-18] MEDS: METOPROLOL TARTRATE 50 MG TAB PO SCH (08:39)
[2018-11-18] MEDS: FAMOTIDINE 20 MG TAB PO SCH ×2 (08:39→16:30)
[2018-11-18] MEDS: MEMANTINE 10 MG TAB PO SCH ×2 (08:39→16:30)
[2018-11-18] MEDS: CLOPIDOGREL BISULFATE 75 MG TAB PO SCH (09:39)
[2018-11-18] MEDS ORDERED: CITRATE OF MAGNESIA 300ML BOTTLE PO NR (14:30)
[2018-11-18] MEDS ORDERED: BISACODYL 5 MG TAB EC PO ONE (15:30)
[2018-11-18] MEDS: DOCUSATE SODIUM 100 MG CAP PO SCH (16:30)
--- NOTE | 2018-11-18 16:35 | NUR ---
Visit made by the Spiritual Care Department Pastoral Visitor, Oscar Nicholas. PV provided pastoral presence, communion, prayer, hospitality, and supportive listening. Pastoral Visitor informed pt/family of the scope of Horse Riding Coach Or Instructor Services and availability. VERA SHERIFF City Distribution Clerk Spiritual Care Department O: [phone] Pager: [phone] ([phone] number calling from)
[2018-11-18 17:11] LABS: CLARITY,URINE HAZY (CLEAR); COLOR,URINE YELLOW (YELLOW); KETONES,URINE NEGATIVE (NEGATIVE); LEUKOCYTE ESTERASE ,URINE NEGATIVE (NEGATIVE); NITRITE,URINE NEGATIVE (NEGATIVE); PROTEIN,URINE DIPSTICK NEGATIVE (NEGATIVE); URINE UROBILINOGEN 0.2 mg/dL (0.2 - 1)
[2018-11-18 17:12] LABS: BACTERIA,URINE FEW /HPF; BILIRUBIN,URINE NEGATIVE (NEGATIVE); EPITHELIAL CELLS,URINE FEW /LPF; WBC,URINE (MAN) 0-5 /HPF (0-5)
[2018-11-18 17:18] LABS: ANION GAP 10.6 mmol/L (8-16); BLOOD UREA NITROGEN 20 mg/dL (7-26); BUN/CREATININE RATIO 23 (6-25); CALCIUM 9.3 mg/dL (8.4-10.2); CARBON DIOXIDE 22 mmol/L (22-29); CHLORIDE 107 mmol/L (98-107); CREATININE, SERUM 0.87 mg/dL (0.57-1.11); EST GLOMERULAR FILTRATION RATE > 60 ML/MIN (60-); GLUCOSE 127 mg/dL (74-118); POTASSIUM 3.6 mmol/L (3.5-5.1); SODIUM 136 mmol/L (136-145)
[2018-11-18 17:54] LABS: FOLATE 13.7 ng/mL (7.0-15.4)
--- NOTE | 2018-11-18 18:50 | NUR ---
rounded with security shift manager nurse, patient and family aware of change. Call talavera within reach and bed in lowest position
[2018-11-18] MEDS: TRAMADOL HCL 50 MG TAB PO PRN (20:35)
[2018-11-18] MEDS: SIMVASTATIN 40 MG TAB PO SCH (20:44)
[2018-11-18] MEDS: QUETIAPINE FUMARATE 25 MG TAB PO SCH (20:44)
[2018-11-18] MEDS: DONEPEZIL HCL 5 MG TAB PO SCH (20:44)
[2018-11-18] MEDS: HEPARIN SOD (PORCINE) 5,000 UNIT/ML VIAL SC SCH (20:44)
--- NOTE | 2018-11-18 21:10 | Consultation ---
DATE OF CONSULTATION: 11/18/2018 Neurology Consult Note HISTORY OF PRESENT ILLNESS: Ms. Odonnell is an 87-year-old right-hand dominant woman with past medical history significant for dementia and multiple urinary tract infections, admitted to the [facility] on November 15, 2018, with a pux-jyn-r-half-week history of worsening confusion and somnolence. Unfortunately, the patient is severely encephalopathic at present. History is obtained from her daughters, who are at the bedside. On November 09, 2018, the patient tripped over a chair leg, fell against a door, and then fell to the floor. Immediately after the fall, the patient endorsed pain in her left arm. Ms. Odonnell was taken to an urgent care clinic, where she was diagnosed with a left humerus fracture. The fracture was determined to be nonoperable. The left arm was placed in a sling. Ms. Odonnell was given prescriptions for ibuprofen 800 mg by mouth every 8 hours, tramadol 50 by mouth every 12 hours, and morphine. A prescription for physical therapy was given to the patient as well. Ms. Odonnell was then discharged to home. Over the past week and a half, Ms. Odonnell has taken ibuprofen 800 mg by mouth every 8 hours and tramadol 50 mg by mouth every 12 hours as prescribed. The patient took only 1 or 2 doses of morphine. However, this medication caused nausea, vomiting, and other intolerable side effects. Therefore, her daughters held this medication. Over the past week and a half, the patient has been somnolent with decreased oral intake secondary to somnolence. During this time, the patient has appeared more confused. Ms. Odonnell was brought to the emergency center at [facility] on November 15, 2018, for further evaluation of her symptoms. Ultimately, the patient was admitted to the hospital under observation status for further evaluation and treatment. In addition to the above medications, Ms. Odonnell was taking antibiotics for urinary tract infections. According to her daughters, the patient has frequent urinary tract infections. The patient's daughters endorsed constipation over the past several days. They did not report fever, chills, productive cough, nasal congestion, rhinorrhea, or diarrhea. Ms. Odonnell was diagnosed with dementia, probably of the Alzheimer's type, approximately 4 years ago. She sees a neurologist in the [facility]. The name of this physician is not known at present. Ms. Odonnell is taking donepezil 5 mg by mouth at bedtime daily and memantine 10 mg by mouth twice daily for treatment of dementia. Recently, the patient saw a psychiatrist, who prescribed quetiapine at 25 mg by mouth at bedtime daily for agitation. However, the patient's daughter reports administering only a half dose of this medication due to excessive daytime drowsiness. REVIEW OF SYSTEMS: Unable to obtain secondary to the patient being severely encephalopathic. PAST MEDICAL HISTORY: Hypertension, hyperlipidemia, coronary artery disease, frequent urinary tract infections, dementia probably of the Alzheimer's type, and anemia. PAST SURGICAL HISTORY: Three-vessel CABG, pacemaker placement, C-spine surgery, L-spine surgery, carotid endarterectomy, bladder suspension. PAST HOSPITALIZATIONS: Surgeries/procedures as listed, childbirth x9, multiple falls. FAMILY MEDICAL HISTORY: The patient's paternal and maternal grandparents are . Their medical histories are unknown. Ms. Odonnell's father from coronary artery disease with myocardial infarction. He did have a history of asthma as well. The patient's mother is . She had a history of rheumatoid arthritis. Ms. Odonnell had 1 sibling, a sister who is from coronary artery disease with a myocardial infarction. This sister had diabetes mellitus as well. Ms. Odonnell had 9 children, 3 sons, and 6 daughters. One daughter is secondary to coronary artery disease with a myocardial infarction. This daughter had a history of strokes as well. The remainder of Ms. Odonnell's children are alive. One son has diabetes mellitus. A second sone is borderline diabetic. The third son is healthy. Two daughters have diabetes mellitus. Two daughters have thyroid disease. A fifth daughter is healthy. SOCIAL HISTORY: Ms. Odonnell is single. She lives with her daughter and son-in-law. The patient is retired. Ms. Odonnell does report a remote history of tobacco use, but quit smoking cigarettes approximately 30 to 40 years ago. The patient's family endorses occasional alcohol use. There is no reported current or prior tobacco, alcohol, or recreational drug use. HOME MEDICATIONS: Alendronate 70 mg by mouth, Augmentin 500 mg by mouth daily, aspirin 81 mg by mouth daily, Plavix 75 mg by mouth daily, donepezil 5 mg by mouth at bedtime daily, ferrous sulphate 325 mg by mouth daily, Lasix 40 mg by mouth daily, memantine at 10 mg by mouth twice daily, metoprolol 50 mg by mouth daily, quetiapine 12.5 mg by mouth at bedtime daily, simvastatin 40 mg by mouth at bedtime daily. HOSPITAL MEDICATIONS: Alendronate sodium, ascorbic acid, aspirin, clopidogrel, donepezil, famotidine, ferrous sulfate, hydralazine, megestrol, memantine, metoprolol, ondansetron, quetiapine, simvastatin, tramadol. ALLERGIES: CODEINE, DEMEROL, HYDROCODONE. NO KNOWN FOOD ALLERGIES. NO KNOWN ALLERGIES TO LATEX. NO KNOWN ALLERGIES TO IODINE OR OTHER CONTRAST MATERIALS. PHYSICAL EXAMINATION: VITAL SIGNS: Height 59 inches, weight 180 pounds, BMI 24.0 kg/m2. Blood pressure 167/73 mmHg, pulse 68 beats per minute, respiratory rate 18 breaths per minute, oxygen saturation 98% on room air. GENERAL: The patient is awake and alert, does not appear distressed. HEENT: Normocephalic, atraumatic. Pupils are pinpoint. Moist mucous membranes. NECK: Supple. No appreciable thyromegaly. No appreciable carotid bruits. CARDIOVASCULAR: S1, S2, regular rate and rhythm. No murmurs, rubs, or gallops. RESPIRATORY: Clear to auscultation bilaterally. No wheezes, rhonchi, or rales. EXTREMITIES: The skin is warm and dry. No clubbing, cyanosis, or edema. The posterior tibial and dorsalis pedis pulses are 1+ and symmetric. SKIN: No rashes or lesions. NEUROLOGIC: Memory/Attention: The patient is awake and alert, not oriented to person, place, time, or situation. Cranial Nerves: Cranial nerve I - not tested. Cranial nerves II, III, IV and - pupils are pinpoint. Extraocular movements are grossly intact. No nystagmus. Cranial nerve V - sensation to light touch is intact in the bilateral V1 through V3 distributions. Strength in the temporalis and mastoidal muscles appear to be within normal limits. Cranial nerves VII - the face is symmetric, as are all facial movements. Strength appears to be within normal limits. Cranial nerve VIII - hearing is diminished to finger rub bilaterally. Cranial nerves IX, X - the soft palate elevates equally and symmetrically. Cranial nerve XI - the patient appears to have normal strength to the bilateral sternocleidomastoid and trapezius muscles. Cranial nerve XII - the tongue protrudes to midline and moves symmetrically from side to side. Strength: Bulk is diminished throughout. Due to severe encephalopathy, Ms. Odonnell is unable to participate in a formal assessment of strength. The left arm is immobilized in a sling. There are normal functional movements of the right arm and both legs. Tone is normal. DTRs: Deep tendon reflexes are 1+ and symmetric at the triceps, biceps, and brachioradialis and patellas. Deep tendon reflexes are absent and symmetric at the Achilles. Plantar responses are flexor bilaterally. Sensation: Sensation is intact to light touch in both arms and both legs. Cerebellar: Unable to assess secondary to severe encephalopathy. Gait: Deferred. Speech: Spontaneous speech is normal without appreciable dysarthria or aphasia. Repetition cannot be assessed. Involuntary movements: None. Pronator drift: As per motor exam. LABORATORY DATA: The most recent comprehensive metabolic panel is significant for an elevated chloride of 110, an elevated BUN of 29, a creatinine of 1.06, and an estimated GFR of 49. Liver function panel is significant for a total protein of 6.4 and an albumin of 3.0. Hemoglobin A1c 5.8, ammonia 59. Total cholesterol 153, triglycerides 129, LDL cholesterol 87, HDL cholesterol 40. TSH 1.480. The CBC with differential and platelets reveals a white blood cell count of 7.28 with normal differential. The hemoglobin and hematocrit are 9.2 and 30.0 respectively. The platelet count is 118. PT, INR, and PTT are within normal limits. A urinalysis is canceled. DIAGNOSTICS STUDIES: Shoulder x-ray of 11/15/2018: Humeral head fracture. CT of the brain without contrast on 11/17/2018, on my review, there is no evidence of recent of large territorial ischemia, hemorrhage, or mass effect. There is moderately diffuse cerebral atrophy with compensatory dilatation of the ventricles, more than expected for the patient's age. There are findings compatible with [id number]-[id number] chronic small vessel ischemic disease. Chest x-ray 11/17/2018: Stable cardiomegaly and prominent main pulmonary artery suggestive of pulmonary artery hypertension. Stable left humeral fracture without evidence of healing. ASSESSMENT AND PLAN: Ms. Odonnell is an 87-year-old right-hand dominant woman with past medical history as detailed, admitted to [facility] on November 15, 2018, with multifactorial metabolic encephalopathy (effective pain medications, acute kidney injury, probably urinary tract infection) superimposed on [id number] dementia, probably of the Alzheimer's type. The patient has undergone a thorough neurological examination with findings detailed above. The laboratory data and other diagnostic studies have been reviewed and are documented above. RECOMMENDATIONS: Are as follows: 1. Additional blood and urine studies will be ordered as follows: Vitamin B1 level, vitamin B6 level, vitamin B12 level, folate, methylmalonic acid, rapid plasma reagin, urinalysis with microanalysis, urine culture and blood cultures x2. 2. For acute kidney injury, continue gentle hydration as per the primary service. 3. Avoid sedative/hypnotic and pain medications as these will alter the patient's sensorium. 4. Utilize environmental cues (lighting, orientation information on a whiteboard, etc.) to combat delirium. 5. For dementia, the patient will continue her home medications of donepezil 5 mg by mouth at bedtime daily and memantine 10 mg by mouth twice daily. 6. GI prophylaxis with Pepcid 20 mg by mouth twice daily with meals. DVT prophylaxis with heparin 5000 units subcutaneously every 12 hours. 7. Defer treatment of the remaining medical comorbidities to the primary and other services following the patient. Thank you for this consultation. I will continue to follow the patient while she remains in the hospital. Time spent: 50 minutes. Hailee Hudson MD CP/JOE /[id number] CAMRYN
[2018-11-19] VITALS (7 sets, daily range): BP systolic 123–171; BP diastolic 59–73
[2018-11-19] MEDS: TRAMADOL HCL 50 MG TAB PO PRN ×2 (02:33→23:16)
[2018-11-19 05:27] LABS: BASOPHILS % 0.2 % (0.0-1.0); EOSINOPHILS % 0.3 % (0.0-6.0); HEMATOCRIT 28.6 % (34.2-44.1); HEMOGLOBIN 9.5 g/dL (12.0-16.0); LYMPHOCYTES # (AUTO) 2.1 (1.0-3.2); LYMPHOCYTES % 23.2 % (18.0-39.1); MEAN CORPUSCULAR HEMOGLOBIN 32.4 pg (28-32); MEAN CORPUSCULAR HGB CONC 33.2 g/dL (31-35); MONOCYTES # (AUTO) 0.9 (0.2-0.8); MONOCYTES % 9.4 % (4.4-11.3); NEUTROPHILS # (AUTO) 6.1 (2.1-6.9); NEUTROPHILS % 66.5 % (38.7-80.0); PLATELET COUNT 183 x10e3/uL (140-360); RED BLOOD COUNT 2.93 x10e6/uL (3.6-5.1); RED CELL DISTRIBUTION WIDTH 12.9 % (11.7-14.4)
[2018-11-19 05:39] LABS: MEAN CORPUSCULAR VOLUME 97.6 fL (81-99)
[2018-11-19 05:52] LABS: ANION GAP 10.7 mmol/L (8-16); BLOOD UREA NITROGEN 19 mg/dL (7-26); BUN/CREATININE RATIO 23 (6-25); CALCIUM 8.9 mg/dL (8.4-10.2); CARBON DIOXIDE 25 mmol/L (22-29); CHLORIDE 107 mmol/L (98-107); CREATININE, SERUM 0.83 mg/dL (0.57-1.11); EST GLOMERULAR FILTRATION RATE > 60 ML/MIN (60-); GLUCOSE 106 mg/dL (74-118); MAGNESIUM 2.4 MG/DL (1.3-2.1); PHOSPHORUS 3.1 MG/DL (2.3-4.7); POTASSIUM 3.7 mmol/L (3.5-5.1); SODIUM 139 mmol/L (136-145)
--- NOTE | 2018-11-19 07:35 | NUR ---
Patient resting in bed, Alert with no distress, call light in reach, bed alarm ON
[2018-11-19] MEDS: FAMOTIDINE 20 MG TAB PO SCH ×2 (08:05→18:00)
[2018-11-19] MEDS: FERROUS SULFATE 325 MG TAB PO SCH (08:36)
[2018-11-19] MEDS: DOCUSATE SODIUM 100 MG CAP PO SCH ×2 (08:36→18:19)
[2018-11-19] MEDS: MEGESTROL ACETATE 40 MG TAB PO SCH ×2 (08:36→18:19)
[2018-11-19] MEDS: MEMANTINE 10 MG TAB PO SCH ×2 (08:36→18:19)
[2018-11-19] MEDS: ASPIRIN 81 MG CHEW TAB PO SCH (08:36)
[2018-11-19] MEDS: ASCORBIC ACID 500 MG TAB PO SCH ×2 (08:37→18:19)
[2018-11-19] MEDS: CLOPIDOGREL BISULFATE 75 MG TAB PO SCH (08:37)
[2018-11-19] MEDS: METOPROLOL TARTRATE 50 MG TAB PO SCH (09:00)
[2018-11-19] MEDS: HEPARIN SOD (PORCINE) 5,000 UNIT/ML VIAL SC SCH ×2 (09:06→21:28)
[2018-11-19] MEDS ORDERED: ACETAMINOPHEN 325 MG TAB PO PRN (09:15)
--- NOTE | 2018-11-19 11:04 | NUR ---
Her daughter with the patient taking patient in wheelchair to have walk in hallway. Refused help by family
--- NOTE | 2018-11-19 14:47 | NUR ---
PT DAUGHTER CHOSE [facility] FOR SNF. [facility] TO [phone]
--- NOTE | 2018-11-19 19:00 | NUR ---
received report from day nurse. patient is resting comfortably in bed. bed is in lowest position and call talavera is within reach. will continue to monitor patient.
[2018-11-19] MEDS: QUETIAPINE FUMARATE 25 MG TAB PO SCH (21:26)
[2018-11-19] MEDS: SIMVASTATIN 40 MG TAB PO SCH (21:26)
[2018-11-19] MEDS: DONEPEZIL HCL 5 MG TAB PO SCH (21:26)
[2018-11-19] MEDS: HYDRALAZINE HCL 20 MG/ML VIAL IV PRN (21:28)
[2018-11-20] VITALS: BP 140/70
[2018-11-20 04:00] VITALS: BP 147/65
[2018-11-20 05:18] LABS: BASOPHILS % 0.5 % (0.0-1.0); EOSINOPHILS # (AUTO) 0.1 (0.0-0.4); EOSINOPHILS % 0.8 % (0.0-6.0); HEMATOCRIT 28.1 % (34.2-44.1); HEMOGLOBIN 9.1 g/dL (12.0-16.0); LYMPHOCYTES # (AUTO) 2.7 (1.0-3.2); LYMPHOCYTES % 30.3 % (18.0-39.1); MEAN CORPUSCULAR HEMOGLOBIN 31.9 pg (28-32); MEAN CORPUSCULAR HGB CONC 32.4 g/dL (31-35); MEAN CORPUSCULAR VOLUME 98.6 fL (81-99); MONOCYTES # (AUTO) 0.9 (0.2-0.8); MONOCYTES % 10.6 % (4.4-11.3); NEUTROPHILS # (AUTO) 5.1 (2.1-6.9); NEUTROPHILS % 57.3 % (38.7-80.0); PLATELET COUNT 188 x10e3/uL (140-360); RED BLOOD COUNT 2.85 x10e6/uL (3.6-5.1); RED CELL DISTRIBUTION WIDTH 13.1 % (11.7-14.4)
[2018-11-20 05:45] LABS: ANION GAP 10.4 mmol/L (8-16); BLOOD UREA NITROGEN 17 mg/dL (7-26); BUN/CREATININE RATIO 20 (6-25); CALCIUM 8.3 mg/dL (8.4-10.2); CARBON DIOXIDE 24 mmol/L (22-29); CHLORIDE 105 mmol/L (98-107); CREATININE, SERUM 0.83 mg/dL (0.57-1.11); EST GLOMERULAR FILTRATION RATE > 60 ML/MIN (60-); GLUCOSE 106 mg/dL (74-118); MAGNESIUM 2.3 MG/DL (1.3-2.1); POTASSIUM 4.4 mmol/L (3.5-5.1); SODIUM 135 mmol/L (136-145)
[2018-11-20] MEDS: FAMOTIDINE 20 MG TAB PO SCH (07:30)
[2018-11-20 07:39] VITALS: BP 147/62
[2018-11-20] MEDS: FERROUS SULFATE 325 MG TAB PO SCH (09:00)
[2018-11-20] MEDS: CLOPIDOGREL BISULFATE 75 MG TAB PO SCH (09:00)
[2018-11-20] MEDS: METOPROLOL TARTRATE 50 MG TAB PO SCH (09:00)
[2018-11-20] MEDS: DOCUSATE SODIUM 100 MG CAP PO SCH (09:00)
[2018-11-20] MEDS: MEMANTINE 10 MG TAB PO SCH (09:00)
[2018-11-20] MEDS: MEGESTROL ACETATE 40 MG TAB PO SCH (09:00)
[2018-11-20] MEDS: HEPARIN SOD (PORCINE) 5,000 UNIT/ML VIAL SC SCH (09:00)
[2018-11-20] MEDS: ASPIRIN 81 MG CHEW TAB PO SCH (09:00)
[2018-11-20] MEDS: ASCORBIC ACID 500 MG TAB PO SCH (09:00)
[2018-11-20] MEDS ORDERED: ASCORBIC ACID500 MG PO (09:15)
[2018-11-20] MEDS ORDERED: MEGESTROL ACETA40 MG PO (09:15)
[2018-11-20] MEDS ORDERED: COLACE100 MG PO (09:15)
--- NOTE | 2018-11-20 09:30 | NUR ---
Patient resting in bed, Alert with no distress, She refused all her morning medications, re tried X2 even the family member tried , she didnt want to take meds. Mara QUILES notified
[2018-11-20 09:35] VITALS: BP 147/62
[2018-11-20 11:35] VITALS: BP 177/74
--- NOTE | 2018-11-20 13:20 | NUR ---
[facility] [address]; RO[address] CM CALLED AND SPOKE WITH DTR NAY PRIETO AT [phone] NOTIFIED HER OF ACCEPTANCE AND ROOM NUMBER RTF COMPLETED AND GIVEN TO NURSE THOMAS TO CALL REPORT
[2018-11-20 15:37] VITALS: BP 160/70
--- NOTE | 2018-11-20 17:09 | NUR ---
[facility] [place], called report to Tania AMARO, patient's family aware, IV canula removed with tip intact, tele box returned, EMS in the building to pick the patient, patient not in any distress
--- NOTE | 2018-11-20 22:18 | Discharge Summary ---
ADMISSION DIAGNOSES: 1. Left humerus fracture, status post fall. 2. Acute kidney injury. 3. Inadequate p.o. intake. 4. Hypertension. 5. Advanced dementia. 6. Anemia. DISCHARGE DIAGNOSES: 1. Left humerus fracture, status post fall. 2. Acute kidney injury. 3. Inadequate p.o. intake. 4. Hypertension. 5. Advanced dementia. 6. Anemia. HISTORY: The patient has a history of advanced dementia, arthritis, hypertension, and hyperlipidemia. SURGICAL HISTORY: Permanent pacemaker and CABG. FAMILY HISTORY: The patient's father and mother both had an MS. SOCIAL HISTORY: The patient has a smoking history. She denies alcohol and illicit drug use. HOSPITAL COURSE: An 87-year-old female, fell 1 week ago while getting out of bed in the middle of the night. She was taken to an urgent care and the humerus fracture was placed in a sling. She then returned home and cut her sling off and complained of pain. The daughter had significant difficulty caring for her mother, so she brought her to the ER. On admission, the left arm x-ray showed humeral head fracture. CT of the brain showed moderate generalized brain volume loss and moderate chronic microvascular ischemic changes. Chest x-ray showed stable cardiomegaly and prominent main pulmonary artery suggestive of pulmonary artery hypertension. Blood cultures were negative. Urine culture was negative. RPR was negative. Per family's request, the patient will transfer to [facility] for PT/OT. She will follow up with primary care in 1-2 weeks. Vital signs stable, patient afebrile. The patient will be discharged with home medicines plus Megace, Colace, and vitamin C. The patient and family understand discharge instructions and agreed to plan. Dictated by Mara Adhikari NP MD HEIDY Bonilla/MODL /[id number]
[2018-11-23] MEDS ORDERED: ALENDRONATE SODIUM 70 MG TAB PO SCH (06:00)
== END 2018-11-20 16:45 | DRG 562 ==
LOC: ER 10:57 → ERHOLD 11:42 → IMCU 16:53 → OBSVTOIN 11-17 14:49
PROVIDERS: ADMIT Internal Medicine; ATTEND Internal Medicine
DX: S42.202A Unspecified fracture of upper end of left humerus, initial encounter for closed fracture (principal); G93.41 Metabolic encephalopathy; N17.9 Acute kidney failure, unspecified; G30.9 Alzheimer's disease, unspecified; F02.80 Dementia in other diseases classified elsewhere, unspecified severity, without behavioral disturbance, psychotic disturbance, mood disturbance, and anxiety; I10 Essential (primary) hypertension; E78.5 Hyperlipidemia, unspecified; D64.9 Anemia, unspecified; Z82.49 Family history of ischemic heart disease and other diseases of the circulatory system; Z87.891 Personal history of nicotine dependence; Z88.5 Allergy status to narcotic agent; Z88.8 Allergy status to other drugs, medicaments and biological substances; Z95.1 Presence of aortocoronary bypass graft; Z95.0 Presence of cardiac pacemaker; Z87.440 Personal history of urinary (tract) infections
CPT/HCPCS: 36415; 70450; 71045; 80048; 80053; 80061; 81001; 82140; 82607; 82746; 82948; 83036; 83735; 83921; 84100; 84207; 84425; 84443; 85025; 85610; 85730; 86592; 87040; 87086; 99284; G0378; J0360; J1644; J2270; J2405; J7030

== ENCOUNTER 2018-11-24 02:48 | Emergency (ER) | payer MEDICARE, OTHER ==
[~2018-11-24] VITALS: Ht 149.9 cm; Wt 54.9 kg
[~2018-11-24 02:48] MED LIST changes: +ASCORBIC ACID500 MG PO; +COLACE100 MG PO; +MEGESTROL ACETA40 MG PO; +NAMENDA10 MG PO; +SEROQUEL25 MG PO
[2018-11-24 04:42] LABS: BASOPHILS % 0.4 % (0.0-1.0); EOSINOPHILS # (AUTO) 0.1 (0.0-0.4); EOSINOPHILS % 1.4 % (0.0-6.0); HEMATOCRIT 31.6 % (34.2-44.1); HEMOGLOBIN 10.2 g/dL (12.0-16.0); LYMPHOCYTES # (AUTO) 2.4 (1.0-3.2); LYMPHOCYTES % 23.8 % (18.0-39.1); MEAN CORPUSCULAR HEMOGLOBIN 32.2 pg (28-32); MEAN CORPUSCULAR HGB CONC 32.3 g/dL (31-35); MEAN CORPUSCULAR VOLUME 99.7 fL (81-99); MONOCYTES # (AUTO) 0.6 (0.2-0.8); MONOCYTES % 6.2 % (4.4-11.3); NEUTROPHILS # (AUTO) 6.7 (2.1-6.9); NEUTROPHILS % 67.7 % (38.7-80.0); PLATELET COUNT 214 x10e3/uL (140-360); RED BLOOD COUNT 3.17 x10e6/uL (3.6-5.1); RED CELL DISTRIBUTION WIDTH 13.2 % (11.7-14.4)
[2018-11-24 05:04] LABS: ALBUMIN 3.2 g/dL (3.5-5.0); ALBUMIN/GLOBULIN RATIO 0.7 (0.8-2.0); ANION GAP 15.8 mmol/L (8-16); CALCIUM 8.7 mg/dL (8.4-10.2)
[2018-11-24 05:08] LABS: POTASSIUM 5.8 mmol/L (3.5-5.1)
[2018-11-24 05:12] LABS: CREATINE KINASE MB 1.5 ng/mL (0-5.0)
[2018-11-24] MEDS: SOD POLYSTYRENE SULFONATE SUSP 15 GM/60 ML BTL PO ONE ×2 (06:25→08:15)
--- NOTE | 2018-11-24 07:17 | NUR ---
WALKING ROUNDS WITH DR MARIAM CAI AND THIS NURSE HAD EXTENSIVE CONVERSATION WITH DAUGHTER AT BEDSIDE AND PATIENT. PATIENT IS CURRENTLY REFUSING TREATEMENT, REFUSED KAYEXOLATE AND ATTEMPT TO HAVE AN ALBUTEROL TREATMENT. IN ADDITION, PATIENT TOOK OFF TELEMETRY MONITORING AND IS IN A CONFUSED STATE. MULTIPLE ATTEMPTS MADE TO REORIENT PATIENT UNSUCCESSFULLY. PATIENT FINALLY AGREED TO HAVE BLOOD REDRAWN AND HAVE INSULIN IV/DEXTROSE TO REDUCE POTASSIUM. DAUGHTER AT BEDSIDE AGREES WITH PLAN.
--- NOTE | 2018-11-24 07:47 | Diagnostic Imaging Report ---
ADDENDUM #1 Comparison is made to head CT from 11/17/2018. Agree with preliminary report. Signed by: Dr. Ryoal Abad M.D. on 11/24/2018 12:15 PM ORIGINAL REPORT Exam: Noncontrast head CT History:87-year-old history female with dizziness Comparison studies: Head CT dated 10/22/2017 Technique: Axial images were obtained from the skull base to the vertex. Coronal and sagittal images reconstructed from the axial data. Dose modulation, iterative reconstruction, and/or weight based adjustment of the mA/kV was utilized to reduce the radiation dose to as low as reasonably achievable. Intravenous contrast: None Findings: Scalp/skull: No abnormalities. Extra-axial spaces: No masses. No fluid collections. Brain sulci: Moderately prominent. Ventricles: Moderate compensatory dilatation. No hydrocephalus. Parenchyma: Moderate confluent hypodensities in the supratentorial white matter are small vessel ischemic changes. No masses, hemorrhage, acute or chronic cortical vascular insults. Sellar/suprasellar region: No abnormalities. Craniocervical junction: Patent foramen magnum. No Chiari one malformation. Incidental findings: Atherosclerotic calcifications in the carotid siphons . Impression: No acute abnormalities. Chronic findings: 1. Moderate generalized volume loss. 2. Moderate supratentorial white matter small vessel ischemic changes. Preliminary report was provided by the neuroradiology fellow. Final read to follow. Signed by: Pedro Uriarte MD on 11/24/2018 7:47 AM
[2018-11-24] MEDS ORDERED: SODIUM CHLORIDE 0.9% 500ML 500 ML IV ONE (09:15)
[2018-11-24 09:25] LABS: CREATINE KINASE MB 1.6 ng/mL (0-5.0)
[2018-11-24 09:54] LABS: ANION GAP 13.9 mmol/L (8-16); CALCIUM 8.5 mg/dL (8.4-10.2); CREATININE, SERUM 0.94 mg/dL (0.57-1.11); POTASSIUM 3.9 mmol/L (3.5-5.1)
[2018-11-24 11:04] VITALS: BP 152/61
== END 2018-11-24 11:11 | disposition home or self-care (01) ==
LOC: ER 02:48
DX: R42 Dizziness and giddiness (principal)
CPT/HCPCS: 36415; 70450; 80048; 80053; 82550; 82553; 84484; 85025; 93005; 99284; J7040

== ENCOUNTER 2019-10-18 13:47 | Inpatient (IN) | payer MEDICARE, OTHER ==
[~2019-10-18] VITALS: Ht 149.9 cm; Wt 54.9 kg
[2019-10-18 14:15] VITALS: BP 121/53
[2019-10-18] MEDS ORDERED: HYDRALAZINE HCL 20 MG/ML VIAL IV PRN (14:45)
[2019-10-18] MEDS ORDERED: ONDANSETRON HCL INJ 2MG/ML 2ML 2 MG/ML VIAL IV PRN (14:45)
[2019-10-18] MEDS ORDERED: TRAMADOL HCL 50 MG TAB PO PRN (14:45)
[2019-10-18] MEDS ORDERED: MORPHINE SULFATE INJ 4 MG/ML INJ 1ML IV PRN (14:45)
--- NOTE | 2019-10-18 15:00 | NUR ---
Patient is a direct admit from Dr. Castro's office, admitting diagnosis of Afib with RVR, cardiology consulted and called, will see patient later this evening. PMH significant for CAD, triple CABG, s/p fall 5 days ago with right 5th metatarsal fracture and right thump avulsion fracture, anxiety, dementia, a/ox3, arrived with daughter who provided most history. Fracture boot to right foot and ambulates with shoe per daughter but can be kept off while in bed. Patient on Tele and Afib, call light within reach, bed alarms in place, will monitor, new IV placed to LFA 20G.
[2019-10-18 15:09] VITALS: BP 121/53
[2019-10-18] MEDS ORDERED: MORPHINE SULFATE 2 MG/ML SYR 1ML IV PRN (15:15)
[2019-10-18 15:35] LABS: BASOPHILS % 0.3 % (0.0-1.0); EOSINOPHILS # (AUTO) 0.1 (0.0-0.4); EOSINOPHILS % 1.5 % (0.0-6.0); HEMATOCRIT 33.5 % (34.2-44.1); HEMOGLOBIN 11.1 g/dL (12.0-16.0); LYMPHOCYTES # (AUTO) 2.1 (1.0-3.2); LYMPHOCYTES % 30.5 % (18.0-39.1); MEAN CORPUSCULAR HEMOGLOBIN 32.2 pg (28-32); MEAN CORPUSCULAR HGB CONC 33.1 g/dL (31-35); MEAN CORPUSCULAR VOLUME 97.1 fL (81-99); MONOCYTES # (AUTO) 0.6 (0.2-0.8); MONOCYTES % 8.3 % (4.4-11.3); NEUTROPHILS # (AUTO) 4.1 (2.1-6.9); PLATELET COUNT 163 x10e3/uL (140-360); RED BLOOD COUNT 3.45 x10e6/uL (3.6-5.1); RED CELL DISTRIBUTION WIDTH 14.3 % (11.7-14.4)
[2019-10-18 15:54] LABS: ANION GAP 16.6 mmol/L (8-16); CALCIUM 9.4 mg/dL (8.4-10.2); CHOL/HDL RATIO 3.3 (3.0-3.6); CREATININE, SERUM 1.22 mg/dL (0.57-1.11); POTASSIUM 4.6 mmol/L (3.5-5.1)
[2019-10-18 16:14] LABS: THYROID STIMULATING HORMONE 1.151 uIU/mL (0.350-4.940)
[2019-10-18 16:52] VITALS: BP 147/78
--- NOTE | 2019-10-18 17:02 | NUR ---
Patient assisted OOB to bathroom and voided, back to bed, rounds by cheese supervisor at this time. Consult to Dr. Prieto and called.
[2019-10-18] MEDS: ENOXAPARIN SOD INJ 40 MG/0.4 ML SYR SC SCH (17:18)
[2019-10-18] MEDS: DOCUSATE SODIUM 100 MG CAP PO SCH (17:19)
[2019-10-18] MEDS: METOPROLOL TARTRATE 50 MG TAB PO SCH (17:19)
--- NOTE | 2019-10-18 19:00 | NUR ---
RECEIVED PATIENT IN BEDSIDE SHIFT REPORT WITH FAMILY MEMBER AT BEDSIDE. PATIENT IS A&OX3, BUT FORGETFUL. FAMILY STATES PATIENT HAS STRONG HISTORY OF SUNDOWNING, CLOSE WATCH WILL BE KEPT ON PATIENT AND BED ALARM AT ALL TIMES. NO PAIN REPORTED. NO S&S OF DISTRESS NOTED. BED LOCKED IN LOWEST POSITION, SIDE RAILS UPX2, CALL LIGHT IN REACH.
--- NOTE | 2019-10-18 19:06 | NUR ---
Report given to on coming nurse and rounds completed. Call light within reach and safety maintained.
[2019-10-18 19:40] VITALS: BP 148/72
[2019-10-18 20:08] VITALS: BP 148/72
[2019-10-18] MEDS: SIMVASTATIN 40 MG TAB PO SCH (20:15)
[2019-10-18] MEDS: MEMANTINE 10 MG TAB PO SCH (20:15)
[2019-10-18] MEDS: QUETIAPINE FUMARATE 25 MG TAB PO SCH (20:15)
[2019-10-19] VITALS (9 sets, daily range): BP systolic 128–167; BP diastolic 58–78
--- NOTE | 2019-10-19 00:47 | Consultation ---
DATE OF CONSULTATION: 10/18/2019 Cardiac Consultation REASON FOR CONSULTATION: Congestive heart failure, coronary artery disease, atrial fibrillation with fast ventricular response, cardiac evaluation. HISTORY OF PRESENT ILLNESS: This is an 88-year-old lady, who is well known to our office. She had her coronary artery bypass surgery many-many years ago, probably late or early 1999. This was done by Dr. Kirkland. Her latest cardiac catheterization was done on 08/10/2015 for congestive heart failure. At that time, it showed patency of left internal mammary artery to LAD, patency of saphenous vein graft to the PDA and ostial circumflex diffusely disease, very tortious and very small. There is very large diagonal, which was not getting circulation. For that reason, we went ahead and we stented her diagonal to her LAD using 2.25 x 18 resolute stent. Subsequently, the patient had ICD implantation on 01/26/2016, was using biventricular ICD device. She is also known to have carotid disease. She had right carotid endarterectomy in addition to mild renal insufficiency, hypercholesteremia, congestive heart failure, and she is having dementia. She is very well taken care of by her family. She is taking her medication and she is reasonably stable. She does have class 3 shortness of breath on exertion with easy fatigability. She had tendency to fall. In fact, she had a fall last Monday. Since that time, she is having pain in her right hand and right foot. She is unable to walk appropriately. She was seen by Dr. Castro in his office where x-ray confirmed a fracture of the right 5th metatarsal as well as the right great thumb. In his office, she was in atrial fibrillation with very fast ventricular response. The patient is sent for admission and cardiac consultation is obtained. Regarding her coronary artery disease; since her PCI procedures in 2014, the patient really is pain free and since she had her pacemaker biventricular ICD implant in 2015, it seems it was easy to control her congestive heart failure symptoms as well as her angina medically. She was maintained on medical therapy. Last seen in our office in January 2019. She was hemodynamically stable and doing well. As per the patient, who is really forgetful, no family with her, she is doing fine. She seems to be comfortable. She denied having any chest pain or shortness of breath. In summary, she is having class 3 symptoms. There is no cough. No leg swelling. HOME MEDICATIONS: Include: 1. Aspirin 81 mg a day. 2. Plavix 75 mg a day. 3. Simvastatin 40 mg a day. 4. Lasix 40 mg a day. 5. Metoprolol tartrate 50 mg a day. 6. Fosamax weekly. 7. Colace. 8. Iron supplements. 9. Seroquel. 10. Namenda. 11. Other p.r.n. medications. ALLERGIES: CODEINE AND MEPERIDINE. PAST MEDICAL HISTORY: 1. Coronary artery bypass surgery many years ago. 2. PCI and stenting to diagonal in 2014, with patency of PHAM and saphenous vein graft disease circumflex territory. 3. Congestive heart failure. 4. ICD implantation, 01/26/2016. 5. Paroxysmal atrial fibrillation. 6. Right carotid endarterectomy in 2005. 7. Hypercholesterolemia. 8. Osteoporosis. 9. Bladder surgery. 10. Dementia. 11. Left foot surgery. 12. Cervical laminectomy. 13. Prolapsed uterus surgery. 14. Spinal fusion. 15. Hysterectomy. 16. Repeated urine tract infection. 17. Repeated fall. SOCIAL HISTORY: She is a . She is nonsmoker and non-alcohol drinker. 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 FAMILY HISTORY: Mother in her 80s with heart disease. Father with heart disease in his 70s. Nine children. She was only the child. A few of her children of CVA or myocardial infarction and a few are diabetic. REVIEW OF SYSTEMS: GENERAL: No fever, no chills, no weight loss. No weight gain. HEENT: Decreased hearing. PULMONARY: As per history and physical. CARDIAC: As per history and physical. GI: Good appetite. Occasional constipation. : Repeated urinary tract infection and frequency. HEMATOLOGY: Easy bruising, but no bleeding. MUSCULOSKELETAL: Pain of her foot, right foot and right hand. NEUROLOGIC: There are no seizure activity. No deficit. PSYCHIATRIC: The patient is very forgetful. PHYSICAL EXAMINATION: VITAL SIGNS: Height of 4 feet 11 inches and weight of 121 pounds. Blood pressure 120/60, heart rate of 80, respiratory rate of 20. HEENT: Pupils are reactive. NECK: No elevation of jugular venous pulsation. No bruit. CHEST: Decreased air entry in bases. A few coarse crackles. ICD noted in place. HEART: PMI 5th left intercostal space. Irregular rate is noted. Ejection systolic murmur over the aortic area. ABDOMEN: Soft. No organomegaly. EXTREMITIES: Decreased feet pulses, but no edema. NEUROLOGIC: Able to move all extremity. The patient is forgetful. OTHER FINDINGS: Gait is abnormal because of the pain. In fact, she cannot stand on the right foot. LABORATORY DATA: Sodium of 142, potassium of 4.6. BUN of 23, creatinine of 1.22. White blood cell count of 6.8, hemoglobin of 11.1, hematocrit 33%, and platelet count of 163,000. TSH of 1.15. IMPRESSION AND PLAN: 1. Fall with fractures of the right metatarsal bone and the right thump. 2. The patient denied syncope. 3. The patient is known with ICD. 4. Chronic systolic heart failure. 5. Paroxysmal atrial fibrillation. 6. Class 3 chronic kidney disease. 7. Dementia. 8. All other health problems mentioned above. From a cardiac point of view, we will increase her metoprolol to 50 mg twice a day. We will keep her on her Lasix. Aspirin and Plavix are on hold until seen and evaluated by Surgery. The patient really is a poor candidate to be on anticoagulation because of her forgetful status and condition. Regardless, we will discuss that and visit again when we see the family. The patient will be followed with you. Orders are written. MD SANJEEV Harrison/JOSEL /[id number]
--- NOTE | 2019-10-19 03:30 | NUR ---
PATIENT VERY CONFUSED AT THIS TIME AND STARTING TO GET AGITATED. PATIENT BELIEVES SHE IS AT HOME AND DOES NOT UNDERSTAND WHY PEOPLE SHE DOES NOT KNOW ARE IN HER ROOM. SAT DOWN WITH PATIENT TO EXPLAIN WHERE SHE IS AND WHY, PATIENT VERY QUICKLY FORGOT. AFTER 20 MINUTES, CALMED PATIENT DOWN ENOUGH TO GET HER BACK IN BED. PATIENT STATED SHE IS TIRED AND WANTS TO SLEEP. BED ALARM ACTIVE. WILL CONTINUE TO MONITOR VERY CLOSELY. PATIENT WOULD BENEFIT FROM FAMILY STAYING THE NIGHT WITH HER TO HELP ORIENT HER IF SHE STAYS IN THE HOSPITAL, WILL COMMUNICATE THIS TO FAMILY MEMBERS.
[2019-10-19 05:17] LABS: BASOPHILS % 0.6 % (0.0-1.0); EOSINOPHILS # (AUTO) 0.2 (0.0-0.4); EOSINOPHILS % 2.2 % (0.0-6.0); HEMOGLOBIN 10.7 g/dL (12.0-16.0); LYMPHOCYTES % 28.8 % (18.0-39.1); MEAN CORPUSCULAR HEMOGLOBIN 31.8 pg (28-32); MEAN CORPUSCULAR HGB CONC 32.4 g/dL (31-35); MEAN CORPUSCULAR VOLUME 98.2 fL (81-99); MONOCYTES # (AUTO) 0.5 (0.2-0.8); MONOCYTES % 7.6 % (4.4-11.3); NEUTROPHILS # (AUTO) 4.1 (2.1-6.9); NEUTROPHILS % 60.4 % (38.7-80.0); PLATELET COUNT 157 x10e3/uL (140-360); RED BLOOD COUNT 3.36 x10e6/uL (3.6-5.1); RED CELL DISTRIBUTION WIDTH 14.2 % (11.7-14.4)
[2019-10-19] MEDS: ACETAMINOPHEN 325 MG TAB PO PRN ×2 (05:29→20:00)
[2019-10-19 05:46] LABS: ALBUMIN 3.6 g/dL (3.5-5.0); ALBUMIN/GLOBULIN RATIO 1.1 (0.8-2.0); ANION GAP 14.7 mmol/L (8-16); CREATININE, SERUM 1.1 mg/dL (0.57-1.11); POTASSIUM 3.7 mmol/L (3.5-5.1)
[2019-10-19 06:10] LABS: THYROID STIMULATING HORMONE 1.938 uIU/mL (0.350-4.940)
[2019-10-19] MEDS ORDERED: METOPROLOL TARTRATE 25 MG TAB PO SCH (09:00)
[2019-10-19] MEDS ORDERED: METOPROLOL TARTRATE 50 MG TAB PO SCH (09:00)
[2019-10-19] MEDS ORDERED: FUROSEMIDE 20 MG TAB PO SCH ×2 (09:00)
[2019-10-19] MEDS: METOPROLOL TARTRATE 50 MG TAB PO SCH ×2 (09:03→18:05)
[2019-10-19] MEDS: MEMANTINE 10 MG TAB PO SCH ×2 (09:03→19:59)
[2019-10-19] MEDS: DOCUSATE SODIUM 100 MG CAP PO SCH ×2 (09:03→18:05)
[2019-10-19] MEDS: FUROSEMIDE 40 MG TAB PO SCH (09:03)
[2019-10-19] MEDS: FERROUS SULFATE 325 MG TAB PO SCH (09:03)
--- NOTE | 2019-10-19 17:50 | NUR ---
pt was confused throughout shift. continued to attempt to leave unit/hospital. walked pt around hospital when time permitted. able to redirect but continued confusion. family aware. pt has not slept over 24hrs per my and department operations manager report. daughter spoke with charge nurse and updated seroquel helps with pt dementia at home although does not sleep much, which contributed to her "roaming house and broke her toe/finger in the kitchen in the middle of the night".
[2019-10-19] MEDS: ENOXAPARIN SOD INJ 40 MG/0.4 ML SYR SC SCH (18:05)
[2019-10-19] MEDS: QUETIAPINE FUMARATE 25 MG TAB PO SCH (19:59)
[2019-10-19] MEDS: SIMVASTATIN 40 MG TAB PO SCH (19:59)
[2019-10-20] VITALS (9 sets, daily range): BP systolic 104–166; BP diastolic 57–77
--- NOTE | 2019-10-20 01:09 | NUR ---
PT D/C recommendation: Home with close supervision tara when ambulating. Patients's history of dementia causes reduced safety awareness. Pt will benefit from outpatient PT to improve LE strength and standing balance. Addendum: 10/20/19 at 0111 by Mj Morales PT Amended: Links added.
[2019-10-20 05:26] LABS: BASOPHILS # (AUTO) 0.1 (0.0-0.1); BASOPHILS % 1.1 % (0.0-1.0); EOSINOPHILS # (AUTO) 0.2 (0.0-0.4); EOSINOPHILS % 3.2 % (0.0-6.0); HEMOGLOBIN 10.3 g/dL (12.0-16.0); LYMPHOCYTES # (AUTO) 2.7 (1.0-3.2); MEAN CORPUSCULAR HEMOGLOBIN 31.7 pg (28-32); MEAN CORPUSCULAR HGB CONC 31.2 g/dL (31-35); MEAN CORPUSCULAR VOLUME 101.5 fL (81-99); MONOCYTES # (AUTO) 0.6 (0.2-0.8); MONOCYTES % 9.8 % (4.4-11.3); NEUTROPHILS # (AUTO) 2.2 (2.1-6.9); NEUTROPHILS % 38.5 % (38.7-80.0); PLATELET COUNT 138 x10e3/uL (140-360); RED BLOOD COUNT 3.25 x10e6/uL (3.6-5.1); RED CELL DISTRIBUTION WIDTH 14.1 % (11.7-14.4)
[2019-10-20 05:45] LABS: ANION GAP 11.9 mmol/L (8-16); CALCIUM 8.9 mg/dL (8.4-10.2); CREATININE, SERUM 1.06 mg/dL (0.57-1.11); POTASSIUM 3.9 mmol/L (3.5-5.1)
[2019-10-20] MEDS: QUETIAPINE FUMARATE 25 MG TAB PO SCH ×2 (08:58→17:42)
[2019-10-20] MEDS: DOCUSATE SODIUM 100 MG CAP PO SCH ×2 (08:58→17:42)
[2019-10-20] MEDS: MEMANTINE 10 MG TAB PO SCH ×2 (08:58→21:08)
[2019-10-20] MEDS: METOPROLOL TARTRATE 50 MG TAB PO SCH ×2 (08:58→17:42)
[2019-10-20] MEDS: FERROUS SULFATE 325 MG TAB PO SCH (08:58)
[2019-10-20] MEDS: FUROSEMIDE 40 MG TAB PO SCH (08:58)
[2019-10-20] MEDS: ACETAMINOPHEN 325 MG TAB PO PRN (09:51)
--- NOTE | 2019-10-20 11:20 | NUR ---
MARIO spoke with pt daughter Lisbeth Chandler [phone]. Lisbeth stated the family has decided not to admit pt to half-way. Pt lives with Lisbeth and will return to Lisbeth upon discharge. Then pt will move to [place] with her son, once all is set up at his home and ready for her. Family wanted pt to dc home today. MARIO called Mara Adhikari [employer] and requested dc. Mara stated not until Podiatry and Orthopedic see's the patient. MARIO notified Lisbeth, and stated dc will probably occur tomorrow. Lisbeth stated pt has wheelchair, shower chair, walker and all DME that she needs. [facility] to come to patient son home and help get anything else the pt may need.
[2019-10-20] MEDS: ENOXAPARIN SOD INJ 40 MG/0.4 ML SYR SC SCH (17:42)
--- NOTE | 2019-10-20 18:53 | NUR ---
RECEIVED REPORT FROM PREVIOUS NURSE. CALL LIGHT WITHIN REACH. PATIENT IN BED AGITATED.
[2019-10-20] MEDS: SIMVASTATIN 40 MG TAB PO SCH (21:09)
--- NOTE | 2019-10-20 21:10 | NUR ---
PATIENT IS AGITATED AND TRYING TO GET OUT OF BED. SHE IS REFUSING HER MEDICATION AND CONFUSED. CALLED DR. HO OFFICE AND ETTA CAN GAVE ONE TIME ORDER OF ARGENIS.
[2019-10-20] MEDS ORDERED: ZIPRASIDONE 20 MG VIAL IM PRN (21:15)
[2019-10-21] VITALS: BP 108/51
[2019-10-21 03:30] LABS: BASOPHILS % 0.6 % (0.0-1.0); EOSINOPHILS # (AUTO) 0.2 (0.0-0.4); EOSINOPHILS % 2.6 % (0.0-6.0); HEMATOCRIT 32.3 % (34.2-44.1); HEMOGLOBIN 10.6 g/dL (12.0-16.0); LYMPHOCYTES # (AUTO) 2.7 (1.0-3.2); LYMPHOCYTES % 41.1 % (18.0-39.1); MEAN CORPUSCULAR HEMOGLOBIN 32.3 pg (28-32); MEAN CORPUSCULAR HGB CONC 32.8 g/dL (31-35); MONOCYTES # (AUTO) 0.5 (0.2-0.8); NEUTROPHILS # (AUTO) 3.1 (2.1-6.9); NEUTROPHILS % 47.1 % (38.7-80.0); PLATELET COUNT 143 x10e3/uL (140-360); RED BLOOD COUNT 3.28 x10e6/uL (3.6-5.1); RED CELL DISTRIBUTION WIDTH 14.2 % (11.7-14.4)
[2019-10-21 03:35] LABS: MEAN CORPUSCULAR VOLUME 98.5 fL (81-99)
[2019-10-21 03:43] LABS: CALCIUM 8.9 mg/dL (8.4-10.2); CREATININE, SERUM 1.13 mg/dL (0.57-1.11); MAGNESIUM 2.1 MG/DL (1.3-2.1)
[2019-10-21 04:00] VITALS: BP 159/64
[2019-10-21] MEDS ORDERED: SODIUM CHLORIDE 0.9% 1000ML 1,000 ML IV SCH (04:45)
[2019-10-21] MEDS ORDERED: ACETAMINOPHEN325 M1 PO (04:49)
[2019-10-21] MEDS ORDERED: METOPROLOL TART50 MG PO (04:49)
--- NOTE | 2019-10-21 07:00 | NUR ---
BEDSIDE SHIFT REPORT RECEIVED FROM EVELYN BURCH. PT DENIES NEEDS AT THIS TIME.
[2019-10-21 07:25] LABS: CLARITY,URINE CLEAR (CLEAR); COLOR,URINE YELLOW (YELLOW)
[2019-10-21 07:26] LABS: BILIRUBIN,URINE NEGATIVE (NEGATIVE); KETONES,URINE NEGATIVE (NEGATIVE); LEUKOCYTE ESTERASE ,URINE SMALL (NEGATIVE); NITRITE,URINE NEGATIVE (NEGATIVE); PROTEIN,URINE DIPSTICK NEGATIVE (NEGATIVE); URINE UROBILINOGEN 0.2 mg/dL (0.2 - 1)
--- NOTE | 2019-10-21 07:27 | NUR ---
GAVE BEDSIDE SHIFT REPORT TO ONCOMING NURSE. CALL LIGHT WITHIN REACH. PATIENT IN BED. GRANDDAUGHTER AT THE BEDSIDE.
[2019-10-21 07:35] LABS: WBC,URINE (MAN) 21-50 /HPF (0-5)
[2019-10-21 07:36] LABS: BACTERIA,URINE FEW /HPF; EPITHELIAL CELLS,URINE RARE /LPF; RBC,URINE 0-5 /HPF (0-5)
[2019-10-21 08:00] VITALS: BP 146/63
[2019-10-21] MEDS: FERROUS SULFATE 325 MG TAB PO SCH (09:39)
[2019-10-21] MEDS: DOCUSATE SODIUM 100 MG CAP PO SCH (09:39)
[2019-10-21] MEDS: FUROSEMIDE 40 MG TAB PO SCH (09:39)
[2019-10-21] MEDS: MEMANTINE 10 MG TAB PO SCH (09:40)
[2019-10-21] MEDS: METOPROLOL TARTRATE 50 MG TAB PO SCH (09:40)
[2019-10-21] MEDS: QUETIAPINE FUMARATE 25 MG TAB PO SCH (09:40)
[2019-10-21 10:22] VITALS: BP 146/63
[2019-10-21 12:00] VITALS: BP 121/63
--- NOTE | 2019-10-21 12:26 | NUR ---
ORDERS FOR HOME HEALTH CARE CHOICE LETTER SIGNED FOR [facility] PH: [phone] FAX: [phone] COPY OF CHOICE LETTER TO [facility] FAXED TO ABOVE NUMBER SPOKE WITH PING AT [facility] [employer] AND ASSURED SHE REC'D CLINICALS AND ORDERS
--- NOTE | 2019-10-21 14:44 | Diagnostic Imaging Report ---
Exam: Right hand 3 views Clinical history: Fracture Findings: Due to the splint material overlying the first digit and distal radius, some of the bony details aren't well seen. There is no gross evidence of acute fracture or malalignment. However, if there is clinical suspicion for acute injury, repeat radiograph after removal of the splint material is recommended. Impression: 1. No gross evidence of acute fracture. Signed by: Dr. Andre Salter MD on 10/21/2019 2:42 PM
[2019-10-21 16:00] VITALS: BP 118/44
[2019-10-21] MEDS ORDERED: METOPROLOL TARTRATE 25 MG TAB PO SCH (17:00)
--- NOTE | 2019-10-21 18:30 | NUR ---
PT CLEARED BY CARDIOLOGY, PODIATRY AND PLASTICS TO DISCHARGE HOME AND FOLLOW UP OUTPATIENT.
--- NOTE | 2019-10-22 08:12 | Discharge Summary ---
ADMISSION DIAGNOSES: Fall with right 5th metatarsal fracture and right thumb avulsion, paroxysmal atrial fibrillation, dementia, coronary artery disease with history of coronary artery bypass grafting. DISCHARGE DIAGNOSES: Fall with right 5th metatarsal fracture and right thumb avulsion, paroxysmal atrial fibrillation, dementia, coronary artery disease with history of coronary artery bypass grafting. HISTORY: Osteoporosis, hyperlipidemia, CAD with PCI, history of right carotid stenosis, dementia, anemia, CKD stage 3, paroxysmal AFib, CHF, recurrent falls. SURGICAL HISTORY: ICD implant, cervical laminectomy, spinal fusion, hysterectomy, left foot surgery, bladder surgery. FAMILY HISTORY: Stroke. SOCIAL HISTORY: Noncontributory. HOSPITAL COURSE: An 88-year-old female admitted from home status post fall. The patient is a poor historian related to dementia. Outpatient x-ray showed a right 5th metatarsal fracture and right thumb avulsion, possible chip fracture. Podiatry and Ortho were consulted. After PT evaluation, the patient is safe to discharge home. Echo was done, which showed an EF of 40% to 45%, and EKG showed AFib at a rate of 93. The patient's pain is very well tolerated. Per family's request, the patient will discharge home with daughter and so she can be transferred to the son's house full-time. She was given home health with physical therapy at the time of discharge. The patient's family understands discharge instructions and agrees to plan. She will follow up with primary care, Podiatry, and Ortho in 1 to 2 weeks. Dictated by Mara Adhikari NP MD HEIDY Bonilla/JOSEL /[id number]
[2019-10-22] MEDS ORDERED: CLOPIDOGREL BISULFATE 75 MG TAB PO SCH (09:00)
[2019-10-22] MEDS ORDERED: FUROSEMIDE 20 MG TAB PO SCH (09:00)
--- NOTE | 2019-10-22 19:36 | Consultation ---
DATE OF CONSULTATION: 10/21/[address] Arias Castro. Consult requested of Cody Prieto MD, Hand Surgery. CHIEF COMPLAINT: Fracture of left little finger. HISTORY OF PRESENT ILLNESS: The patient is an 88-year-old female, who was admitted on 10/18/2019, after apparently sustaining a fall. She has numerous fractures of the left upper arm, the left foot including the left little finger. Consultation regarding the fracture of the left little finger is now requested. The pertinent history is that the patient was initially seen at [facility] where radiographs revealed a fracture of the proximal phalanx of the left little finger. The patient was subsequently transferred here to [facility] and admitted on 10/18/2019. The verification of the x-rays was requested and the patient had x-rays of the left little finger performed at [facility]. These x-rays were reviewed with the radiologist and did not reveal any fracture. On physical exam, the patient's left little finger is swollen and ecchymotic. There does not appear to be any dislocation. Passive and active range of motions appear to be reduced, but intact, but does not appear to be any ligamentous disruption of either the MP or the PIP joints. IMPRESSION: Contusion of the left little finger. PLAN: Because of the difference in the radiographic interpretations, I recommend that the patient have the finger elevated, ice packs applied, and use of anti-inflammatory medications. The patient is being discharged today, will be followed up in the office in 48 to 72 hours. Your expression of professional confidence is greatly appreciated. Cody Prieto MD ER/MODL /[id number]
== END 2019-10-21 18:45 | disposition home health service (06) | DRG 563 ==
LOC: MED/SURG 13:50 → OBSVTOIN 14:45
PROVIDERS: ADMIT Internal Medicine; ATTEND Internal Medicine
DX: S92.351A Displaced fracture of fifth metatarsal bone, right foot, initial encounter for closed fracture (principal); I50.22 Chronic systolic (congestive) heart failure; I13.0 Hypertensive heart and chronic kidney disease with heart failure and stage 1 through stage 4 chronic kidney disease, or unspecified chronic kidney disease; G93.49 Other encephalopathy; F03.91 Unspecified dementia, unspecified severity, with behavioral disturbance; F05 Delirium due to known physiological condition; W19.XXXA Unspecified fall, initial encounter; N18.3 Chronic kidney disease, stage 3 (moderate); Z95.1 Presence of aortocoronary bypass graft; I48.0 Paroxysmal atrial fibrillation; Z79.01 Long term (current) use of anticoagulants
CPT/HCPCS: 36415; 80048; 80053; 80061; 81001; 83036; 83735; 84443; 85025; 87086; 93005; 93306; J1650; J3486; J7030